=== PATIENT | female | born 1945 | race Caucasian/White ===

== ENCOUNTER 2024-08-19 04:28 | Inpatient (IN) | payer MEDICARE, OTHER, SELFPAY ==
[2024-08-19] VITALS (19 sets, daily range): BP systolic 77–126; BP diastolic 48–70; BMI 24.9; BMI 21.3
[2024-08-19 01:31] LABS: % Eosinophils 2.5 % (0-6); % Immature Granulocytes 0.4 % (0-0.5); % Lymphocytes 20.1 % (20.5-51.1); % Monocytes 5.3 % (1.7-9.3); % Neutrophils 70.7 % (42.2-75.2); Absolute Basophils 0.1 10^3/uL (0-0.2); Absolute Eosinophils 0.2 10^3/uL (0-0.7); Absolute Lymphocytes 1.8 10^3/uL (1.2-3.4); Absolute Monocytes 0.5 10^3/uL (0.1-0.6); Absolute Neutrophils 6.3 10^3/uL (1.4-6.5); Hematocrit 38.2 % (37.0-47.0); Hemoglobin 12.8 g/dL (12.0-16.0); Mean Corp Hgb Conc. 33.5 g/dL (33.0-37.0); Mean Corpuscular Volume 86.6 fL (81.0-99.0); Mean Platelet Volume 9.6 fL (7.4-10.4); Nucleated Red Blood Cells % 0 %; Platelet Count 201 10^3/uL (130-400); Red Blood Cell Count 4.41 10^6/uL (4.20-5.40); Red Cell Dist. Width 13.6 % (11.5-14.5); White Blood Cell Count 8.9 10^3/uL (4.8-10.8)
[2024-08-19 01:44] LABS: ALT (SGPT) 26 U/L (0-35); AST (SGOT) 45 U/L (14-36); Albumin 4.2 g/dl (3.5-5.0); Alkaline Phosphatase 69 U/L (38-126); Blood Urea Nitrogen 16 mg/dl (7-17); Calcium 9.4 mg/dl (8.4-10.2); Carbon Dioxide 26 mmol/L (22-30); Chloride 104 mmol/L (98-107); Estimated Creatinine Clearance 50 ml/min; Glucose 131 mg/dl (70-99); Potassium 4.1 mmol/L (3.5-5.1); Sodium 140 mmol/L (135-145); Total Bilirubin 0.8 mg/dl (0.2-1.3); eGFR > 60.00
[2024-08-19] MEDS: LOW STRENGTH ASPIRIN 324 MG PO (02:21)
[2024-08-19 02:50] LABS: APTT 36.6 Sec (23.4-35.0)
[2024-08-19 02:51] LABS: Lactic Acid 1.3 mmol/L (0.7-2.0)
[2024-08-19 02:54] LABS: COVID-19 Antigen Negative (Negative)
--- NOTE | 2024-08-19 03:21 | ED.GENMED ---
History of Present Illness
General
Chief Complaint: Chest Pain
Source: patient and family (Daughter at bedside)
Exam Limitations: none
Time Seen by Provider: 08/19/24 02:06
Nursing documentation reviewed up to this point in time: agreed with
History of Present Illness
History of Present Illness:
This is an 79-year-old woman who has history of GERD, anxiety who complains of at least 1 month history of intermittent shortness of breath primarily dyspnea on exertion. Dyspnea on exertion has slowly worsened over the past 3 weeks. Tonight
however she developed marked increase in shortness of breath accompanied with substernal chest pain, pressure that is much worse with lying supine. She has had a mild dry cough tonight but has not had a fever. No leg pain or swelling. No history
of similar episodes in the past. No recent travel.
She follows with a director post in [place] and has an appointment scheduled later this week.
Her only daily medications are omeprazole, lamotrigine and as needed lorazepam.
Past History
Past History
ED Past Medical History: GERD and Psychiatric (anxiety, MVP)
ED Past Surgical History: Orthopedic
Social History
Tobacco: Non-smoker
Alcohol: None
Drug: None
Personal:
Living: alone
Family History
Family History: CAD (mother with pmh CAD and CHF, 80y)
Phy Exam
Physical Exam
Physical Exam:
GENERAL: 79-year-old woman appears her stated age, awake and alert, appears in mild distress, mild to moderate resting tachypnea. Able to speak in full sentences. Mildly anxious.
EYE: pupils equal and reactive. anicteric
NECK: Supple, nontender, no meningismus, no significant adenopathy. Mild JVD.
ENT: oral mucosa is moist. No rhinorrhea.
CARDIAC: Regular rhythm, tachycardic. 3/6 holosystolic murmur left sternal border as well as S3 gallop noted.
LUNGS: Moderate bibasilar Rales with mild resting tachypnea.
ABDOMEN: Soft, nondistended, without focal tenderness, no r/g, no cvat. normoactive BS.
NEUROLOGICAL: Alert and oriented x3, no focal neuro deficits.
SKIN: Warm and dry, normal color, skin intact. No rash.
MUSCULOSKELETAL: No C/C/E. peripheral pulses are full and equal b/l. No palpable tenderness.
PSYCH: Normal and appropriate interaction.
Scores
Heart Score for Chest Pain Patients
STEMI patient?: No
History: Moderately Suspicious
ECG: Nonspecific Repolarization
Age: >/= 65 years
Risk Factors: No Risk Factors
Troponin: >/= 3 x Normal Limit
Heart Score for Chest Pain Patients: 6
Heart Score Risk: 20.3% MACE over next 6 weeks
Course
Orders/Labs/Results
Orders:
Orders
08/19/24 01:09
Electrocardiogram (*1) Urgent
Reason for Study: Chest Pain
EKG- Treatment ONCE
08/19/24 01:22
Complete Blood Count/With Diff Urgent
Comprehensive Metabolic Panel Urgent
NT-proBNP Urgent
Comment: ADD ON
Troponin I Urgent
08/19/24 02:18
Add On- LAB Urgent
Tests Added?: BNP
Aspirin Chewable [Low Strength Aspirin] 324 mg PO NOW STA
08/19/24 02:19
CT Chest Pe Study Urgent
Comment:
Reason For Exam: SOB, CP, tachycardia
08/19/24 02:26
COVID-19 Antigen Urgent
Source: Nasal Swab
Lactic Acid Urgent
08/19/24 02:29
PTT Urgent
08/19/24 03:22
Furosemide [Lasix] 40 mg IV NOW STA
08/19/24 03:31
Heparin 4,000 units IV NOW STA
Pharmacy Request to Place See Dose Instructions PO NOW STA
Discontinue all Active Warfarin orders?: Yes
Nursing to Place Non Medication Order As Directed
Physician Order: PTT 6 hours after initial start of Heparin infusion
08/19/24 03:43
Nitroglycerin Ointment [Nitro-Bid] 0.5 inch TOPICAL NOW STA
Nitroglycerin Ointment [Nitro-Bid] 1 inch .ROUTE .STK-MED ONE
08/19/24 03:45
Heparin [id number] Units/250 ml 25,000 units in 250 ml IV PER PROTOCOL
Weight to be used for heparin protocol in kilograms (kg):: 68
Protocol:: Cardiac Tx/Acute Coronary
PTT Goal Range to be used:: PTT 73 to 111 seconds
Order type:: Initial
INITIAL Infusion Dose (UNITS/KG/hr) & then follow protocol:: 12 units/kg/hr
Infusion Dose in UNITS/hr & then follow protocol (UNITS/hr):: 800
INFUSION RATE in mL/hr & then follow protocol (mL/hr):: 8
PTT less than or equal to 64 seconds:: Increase rate by 200 units/hr (+ 2 mL/hr)
PTT 64.1 to 72.9 seconds:: Increase rate by 100 units/hr (+ 1 mL/hr)
PTT 73 to 111 seconds:: Target Range. No change in rate.
PTT 111.1 to 130.9 seconds:: Decrease rate by 100 units/hr (- 1 mL/hr)
PTT 131 to 199.9 seconds:: HOLD for 1 hr. Then decrease rate by 200 units/hr (- 2 mL/hr)
PTT greater than or equal to 200 seconds:: HOLD for 2 hrs & Notify Provider. Then decrease by 200 units/hr (-
2 mL/hr)
Lab follow-up:: Each change, PTT q6h until 2 consecutive are therapeutic. Then PTT
daily.
08/19/24 04:[address] See Dose Instructions IV DIRECTED
Abnormal Lab Results
08/19/24 08/19/24
: 02:29
Lymphocytes % 20.1 L %
(20.5-51.1)
APTT 36.6 H Sec
(23.4-35.0)
Glucose 131 H mg/dl
(70-99)
AST 45 H U/L
(14-36)
Troponin I 3.310 H* ng/ml
08/19/24 01:22
08/19/24 01:22
Vital Signs
Initial and Last Documented VS:
Initial Vital Signs
Temp Pulse Resp BP Pulse Ox
99.2 F 105 22 126/70 98
08/19/24 01:17 08/19/24 01:17 08/19/24 01:17 08/19/24 01:17 08/19/24 01:17
Last Documented Vital Signs
Temp Pulse Resp BP Pulse Ox
99.2 F 105 11 106/55 96
08/19/24 01:17 08/19/24 03:02 08/19/24 03:02 08/19/24 03:02 08/19/24 03:02
MDM/Problems Addressed
Differential Diagnosis Includes:
Concern for ACS, acute CHF, pneumonia, PE, pleural effusion.
EKG shows sinus tachycardia which is new compared to previous 2014, poor R wave progression more pronounced on today's EKG compared to previous.
Labs remarkable for elevated troponin 3.3 consistent with non-STEMI. Patient has no prior history of CAD, no reported risk factors for CAD, but does follow with a director post in [place].
Will check D-dimer and due to concern for potential PE will check CT of the chest/PE study.
Will give 324 mg chewable aspirin.
BP is soft at 110 systolic. Will hold off on nitro for now.
*Radiology
Radiology exam reviewed: radiology read reviewed
*Pulse Oximetry
Patient hypoxic: no
*EKG
Interpreted by ED Provider?: Yes
Interpretation: abnormal
Comparison EKG: changes noted (Sinus tachycardia and poor R wave progression anteriorly or new compared to previous EKG 2015.)
Rate: tachycardiac
Rhythm: sinus
[place]: normal axis
Interval: normal interval
QRS Pattern: poor R-wave progression
Ischemia: non-specific ST changes
*Transplanter Interpretation
Rate: tachycardiac
Interpretation: abnormal
Rhythm: sinus
*Critical Care Note
Total Time (30-74mins, 75-104mins- exclusive of procedures): 30
comment:
Critical care statement: A total of 30 minutes of critical care time was provided for this patient. This includes management of unstable vital signs, evaluation of the patient at bedside, reviewing the patient's pertinent medical records, discussion
with consultants, review of old EKGs and review of pertinent medical records. This time with separate from time utilized to perform the aforementioned documented procedures
Update Note
Update Note:
08/19/2024 0350 AM
Patient is much more comfortable, resting comfortably with no further chest pain. She does continue with mild shortness of breath but improving.
CT shows no PE but evidence of pulmonary edema, bilateral pleural effusions.
BNP markedly elevated 12,500.
Will initiate IV Lasix, IV heparin and as BP remains somewhat soft will add Nitropaste 1/2 inch.
Will continue to trend troponin and admit to hospitalist service. Will plan for cardiology consult.
ED Attending Note
-
Portions of this chart may have been created with voice recognition software.� Occasional wrong word or��sound alike� substitutions may have occurred due to the inherent limitations of voice recognition software.
Discharge Plan
Departure
Patient Disposition: Admit
Date of Disposition: 08/19/24
Time of Disposition: 03:52
Admit to: IVU
Admit to doctor: Chris
Presentation/result/management discussed w/ accepting MD/DO: Hospitalist
Condition: Serious
Discharge Problem:
Acute left-sided CHF (congestive heart failure), Acute non-ST elevation myocardial infarction (NSTEMI)
Prescriptions:
No Action
lamotrigine 100 MG tablet
200 mg PO BID
lorazepam 1 MG tablet
1 mg PO TIDPRN PRN (Reason: anxiety)
omeprazole
Referrals:
Tyrell King MD [Family Provider] -
Interventions
Interventions:
*Risk Screen - Suicide Last Done: 08/19/24 01:17
*General Assessment Last Done: 08/19/24 01:17
*Neglect/Abuse Screening Last Done: 08/19/24 01:17
ED- Fall Risk Assessment Last Done: 08/19/24 01:27
*ED COVID-19 Vaccine History Last Done: 08/19/24 01:24
ED- Cardiac Assessment Last Done: 08/19/24 01:27
Discharge Date and Time
Print Language: MALTESE
[2024-08-19 03:40] LABS: NT-proBNP 12500 pg/ml
[2024-08-19] MEDS: LASIX 40 MG IV (03:50)
[2024-08-19] MEDS: NITRO-BID 0.5 INCH TOPICAL (03:50)
--- NOTE | 2024-08-19 03:51 | EDRN ---
Re-weighed pt and confirmed weight of 68kg. Called pharmacy for heparin verification
[2024-08-19] MEDS: HEPARIN 4000 UNITS IV (04:11)
[2024-08-19] MEDS: HEPARIN 25000 UNITS/250 ML IV (04:12)
--- NOTE | 2024-08-19 04:20 | HPS.HSE ---
Family Physician
-
Family Physician: Tyrell King
Chief Complaint
-
SOB, Shoulder Pain
History of Present Illness
Patient is an 79y F with PMH significant for anxiety / depression who presents to ED complaining of SOB and shoulder discomfort. Patient states that she first noted some shortness of breath with exertion / activity about 3 weeks ago. Her
dyspnea has gradually increased in frequency and severity since that time. She has developed hacking, non-productive cough. She has difficulty sleeping due to dyspnea / orthopnea. She has felt generally fatigued. Patient states that she has had
a few episodes of L shoulder discomfort. She initially attributed this to muscular pain. This evening she had recurrent L shoulder discomfort and presented to the ED for further evaluation.
Patient notes that pain is in the anterior and posterior L shoulder. It radiates across the L chest somewhat. Pain is dull / tight in nature.
Patient denies any fevers / chills, known sick contacts, etc.
She has no history of [place], CVA, etc. She is followed by a Incident Response Engineer in [place] (Dr. Fam) - whom she only started seeing due to her family history / for prevention.
Recent relevant history is significant for the fact that her at the end of May. Patient moved from [place] to this area to live with her daughter following her 's passing.
In the ED, patient is currently resting comfortably. She denies any dyspnea and has no shoulder or chest pain at this time.
Medical History
Past Medical History
Past Medical History: Reports Other
Additional Past Medical History:
Anxiety / Depression
GERD
Past Surgical History: Reports Other
Additional Past Surgical History:
Right Rotator Cuff Surgery
Hernia Repair
Social History
Tobacco: Non-smoker ( smoked in the home x many years.)
Alcohol: None
Drug: None
Living: With Family
Family History
Family History: Other (Mother: CHF / Cardiomyopathy)
Allergies / Home Medications
Allergies reflects when Allergies were last updated in [facility].
Home Medications with original date entered in [facility]
Allergy/Medication List:
Allergies
Allergy/AdvReac Type Severity Reaction Status Date / Time
No Known Allergies Allergy Verified 08/19/24 03:05
Home Medications
lamotrigine 100 mg tablet 200 mg PO BID 11/07/12
lorazepam 1 mg tablet 1 mg PO TIDPRN PRN anxiety 05/27/15
omeprazole 08/19/24
Review of Systems
-
History Source: Patient
A 12 point ROS was completed and negative except as noted: Yes
Constitutional: Reports Fatigue; Denies Fever or Chills
EENT: Denies Sore Throat
Respiratory: Reports Cough and Trouble Breathing; Denies Hemoptysis
Cardiac: Reports Chest Pain; Denies Diaphoresis, Palpitations or Syncope
Abdomen/GI: Denies Abdominal Pain, Nausea, Vomiting or Diarrhea
: Denies Dysuria, Frequency or Flank Pain
Musculoskeletal: Denies Joint Pain or Edema
Neurological: Denies Dizzy or Headache
Psych: Denies Depression or Anxiety
Physical Exam
Vital Signs
Vital Signs
Temp Pulse Resp BP Pulse Ox
99.2 F 103 11 104/63 96
08/19/24 01:17 08/19/24 03:46 08/19/24 03:02 08/19/24 03:46 08/19/24 03:02
Physical Exam
General: Other (79y F in no acute distress.)
HEENT: Moist mucous membranes, PERRLA and Other (No JVD.)
Respiratory: Other (Rales throughout bilateral lungs - nearly 100% up. Hacking paroxysms of cough during exam. No wheezing.)
Cardiac: S1/S2, Regular Rhythm and Murmur (III/ DAMIÁN)
GI: Soft, Non Tender, Non Distended and Normal Bowel Sounds
Musculoskeletal: No Clubbing, No Cyanosis and No Edema
Neuro: AO x 3
Laboratory Results
-
08/19/24 01:22
08/19/24 01:22
Laboratory Results
APTT 36.6 Sec (23.4-35.0) H 08/19/24 02:29
Lactic Acid 1.3 mmol/L (0.7-2.0) 08/19/24 02:26
Total Bilirubin 0.8 mg/dl (0.2-1.3) 08/19/24 01:22
AST 45 U/L (14-36) H 08/19/24 01:22
ALT 26 U/L (0-35) 08/19/24 01:22
Alkaline Phosphatase 69 U/L (38-126) 08/19/24 01:22
Troponin I 3.310 ng/ml H* 08/19/24 01:22
Impression/Plan
-
A/P: Patient is an 79y F with PMH significant for anxiety / depression who presents tp ED complaining of 3 weeks of progressive dyspnea and intermittent L shoulder pain.
NSTEMI
- Admit for further evaluation and treatment.
- Initial troponin is 3.31 with L shoulder and chest discomfort.
- Pain is currently 0/10.
- EKG without evident acute ischemic changes.
- IV heparin infusion.
- NTG as needed for recurrent chest pain.
- ASA, statin, etc.
- Cardiology consult for probable ischemic evaluation.
- Follow for any new / recurrent symptoms.
- Takotsubo's certainly a possibility given recent stressors (see HPI).
Acute HF - Unknown Type
- Patient with pulmonary edema on exam and CT scan.
- BNP markedly elevated. No R sided findings of edema, abdominal distention, JVD, etc.
- Treat NSTEMI as noted above.
- Check Echo.
- Trial of IV Lasix at low dose and follow for effective diuresis.
- Cardiology evaluation as noted above.
Anxiety / Depression
- Stable. Continue Lamictal and PRN lorazepam.
GERD
- Stable. Continue daily PPI.
- Hiatal hernia appreciated on CT scan.
DVT Prophylaxis: On IV Heparin
Code Status: Full
--- NOTE | 2024-08-19 07:00 | PTCARENOTE ---
received patient from the ED. AAOx3. ambulated to the bed from stretcher-steady. denies any sob/cp. mild dyspnea on exertion noted. 97% on RA. SR on tele. bp stable. fine crackles b/l bases. patient states 'chest heaviness' with deep breathes.
educated patient to inform RN with any changes. Nitro patch RUE. heparin gtt infusing per protocol.
[2024-08-19] MEDS: PROTONIX 40 MG PO (07:49)
[2024-08-19] MEDS: LASIX 20 MG IV ×2 (07:49→15:54)
[2024-08-19] MEDS: LOW STRENGTH ASPIRIN 81 MG PO (07:49)
[2024-08-19] MEDS: LAMICTAL 200 MG PO ×2 (07:49→20:03)
[2024-08-19 11:22] LABS: APTT 58.2 Sec (23.4-35.0)
--- NOTE | 2024-08-19 12:05 | W.PN.HOSP.TC ---
Today's Communication/Plan
-
IV heparin
Diuresis
Echo/cath tomorrow
Assessment / Plan
Assessment / Plan
79-year-old female presented to the ER with shortness of breath and shoulder discomfort. Patient states that she has had shortness of breath for the past 1 month mostly with exertion and climbing stairs. She felt chest pain and also left shoulder
pain last night which prompted him to come to the ER. Patient lives with her daughter now. She has been following up with her doctor Remy Irwin in [place] for mitral valve prolapse. Other than that and anxiety and bipolar disease she is
relatively healthy. Patient also lost her in May.
Patient was seen earlier. Late documentation
Patient's daughter was at bedside
Cardiovascular system S1-S2 appreciated systolic murmur at apex
Chest bilateral rales
Abdomen soft and nontender
No pedal edema
Neuroexam nonfocal
CT PE study-small to moderate bilateral pleural effusions. CT findings compatible with pulmonary edema no pericardial effusion. Moderate calcification of aortic valve. Mucous plugging/bronchial secretions. Splenic artery aneurysm 1.5 cm small to
moderate-sized hiatal hernia
# Non-STEMI
Initial troponin 3.31 with chest discomfort and short repeat
Troponin trending down
Continue as needed nitroglycerin, IV heparin, aspirin and statin
Cardiology evaluation
Check echo
Cath tomorrow
CT PE study-results
# Acute heart failure-type unknown
proBNP [id number]
Problem Takotsubo cardiomyopathy
Check echo
Ischemic reasons need to be ruled out also
Continue IV Lasix for diuresis
Cardiology evaluation as above
# Heart murmur-systolic murmur at apex-aortic stenosis versus MR-check echo tomorrow
# Anxiety and depression-continue Lamictal, as needed Ativan
# GERD/hiatal hernia-continue PPI
# Splenic artery aneurysm 1.5 cm-repeat CAT scan in 6 months
# Diverticulosis
# DVT prophylaxis-heparin
# Full code
D/W daughter at bedside
Discussed with cardiology
Discussed with nursing at bedside
time spent over 50 min
Part of this note was created using voice recognition system. Occasional wrong word or��sound alike� substitutions may have inadvertently occurred due to the inherent limitations of voice recognition software. If noted kindly bring it to my
attention for correction.
Anticipated Discharge: 24 - 48 hours
Subjective/Interval History
-
Date of Service: August 19, 2024
Objective Data
-
Labs:
Laboratory Results
08/19/24 08/19/24 08/19/24
01:22 02:29 10:42
WBC 8.9
Hgb 12.8
Hct 38.2
Plt Count 201
APTT 36.6 H 58.2 H
Sodium 140
Potassium 4.1
Chloride 104
Carbon Dioxide 26
BUN 16
Creatinine 0.8
Glucose 131 H
Calcium 9.4
Total Bilirubin 0.8
AST 45 H
ALT 26
Alkaline Phosphatase 69
Vital Signs:
Vital Signs
Temp Pulse Resp BP Pulse Ox
98.1 F 94 18 102/57 99
08/19/24 06:35 08/19/24 10:22 08/19/24 06:35 08/19/24 10:22 08/19/24 08:00
I&O
08/18/24 08/19/24 08/20/24
06:59 06:59 06:59
Output Total 625 / 625 800 / 800
Balance -625 / -625 -800 / -800
--- NOTE | 2024-08-19 12:44 | CON.CAR ---
Consultation
Consultation Request
Date/Time Consultation Requested: 08/19/24, 7am
Date/Time Consultation Performed: 08/19/24, 11am
Requesting Provider: Luis Miguel
Performing Provider: Ray
Reason for Consultation: chest pain, SOB
Medical History
-
Chief Complaint: SOB, chest pressure
History of Present Illness:
79 yo female with 'valve abnormality.' anxiety/depression, GERD presents to ED with SOB and chest pressure. She has noted progressive SOB/MOHAN over last 3-4 weeks. Then started having left shoulder and chest pain, which worsened last night. So she
presented to ED. She is comfortable at rest in bed. No dizziness, syncope, palps, edema.
Past Medical History
Past Medical History: GERD, Valvular Disease and Psychiatric
Past Surgical History: Other (hernia repair)
Social History
Tobacco: Non-Smoker
Family History
Family History: Other (HF in mother)
Allergies / Home Medications
Allergy/AdvReac Type Severity Reaction Status Date / Time
No Known Allergies Allergy Verified 08/19/24 03:05
�Medication �Instructions �Recorded �Confirmed �Type
lamotrigine 100 mg tablet 200 mg PO BID 11/07/12 08/19/24 History
lorazepam 1 mg tablet 1 mg PO TIDPRN PRN anxiety 05/27/15 08/19/24 History
omeprazole 08/19/24 History
Review of Systems
-
History Source: Patient and Family
Respiratory: Cough and Trouble Breathing
Cardiac: Chest Pain
Physical Exam
Vital Signs
Temp Pulse Resp BP Pulse Ox
98.5 F 94 20 102/57 98
08/19/24 12:03 08/19/24 10:22 08/19/24 12:03 08/19/24 10:22 08/19/24 12:03
Lab Results
08/19/24 01:22
08/19/24 01:22
Troponin I 5.460 ng/ml H* D 08/19/24 10:42
Lsh-B-Ihjorsmagac Pept 16874 pg/ml 08/19/24 01:22
Physical Exam
General: Comfortable
HEENT: Normocephalic and Anicteric
Respiratory: Clear and Non Labored Respirations
Cardiac: S1/S2 (normal), Regular Rhythm, Murmur (III/ systolic at apex) and Peripheral Edema (none)
Musculoskeletal: No Clubbing, No Cyanosis and No Edema
Skin: Warm and Dry
Neuro: AO x 3
Psych: Calm
Impression / Plan
-
79 yo female with 'valve abnormality.' anxiety/depression, GERD presents to ED with SOB and chest pressure. She has noted progressive SOB/MOHAN over last 3-4 weeks. Then started having left shoulder and chest pain, which worsened last night. So she
presented to ED.
# Heart murmur
-sounds like MR, and she is followed by a feather separator in [place] for a 'valve abnormality'
-there may be a component of worsening valve disease and acute HF (unknown type)
-echo
-lasix 20mg IV bid (not on diuretic at home), with monitoring of labs and tele
# Elevated troponin
-5.46 and rising; chest pain free now; EKG with ST, septal infarct
-with shoulder and chest pain, concern for NSTEMI
-ASA, heparin drip, statin, beta kin as BP allows
-will plan for echo first, to determine severity of valve disease, and then cath for coronary assessment
Data Reviewed
-
EKG: Tracing Personally Visualized and interpreted (ST, septal infarct)
CT Scan: Report Reviewed by me (CT PE: no PE)
Labs: Labs Reviewed by me
[2024-08-19] MEDS: LIPITOR 40 MG PO (17:22)
--- NOTE | 2024-08-19 18:00 | PTCARENOTE ---
Pt received this am with no c/o of any chest pain. Pt states she occasionally had mild chest pressure if she takes a deep breath. IV heparin infusing as ordered. Pt oob to the chair for breakfast and tolerated well. Pt assisted to the bathroom, gait
steady.
[2024-08-19 18:02] LABS: APTT 85.1 Sec (23.4-35.0)
--- NOTE | 2024-08-19 21:24 | PTCARENOTE ---
received patient at the change of shift. resting comfortably in bed. denies any cp/sob. patient states feeling much better. SR on tele with [id number]. bigeminy noted. bp stable. heparin gtt infusing at 10 ml/hr per protocol. reviewed plan of care
with patient and verbalized understanding. NPO at midnight. call maurice within reach.
[2024-08-19] MEDS: TOPROL XL 25 MG PO (22:56)
--- NOTE | 2024-08-19 23:10 | PTCARENOTE ---
Addendum entered by Sridhar Hyde RN 08/19/24 23:57:
blood pressure did not tolerate SL nitro. 80s/50-60s. updated Dr. Bell. will hold off on any other SL nitro. patient denies any lightheadedness/dizziness. pillow under legs. bp improved-95/61. patient states improved pain after SL nitro. denies any
cp at this time. states only mild heaviness with 'deep' breathing.
Original Note:
patient updated tech that she is having some pain. on assessment, patient states L sided chest pain-non radiating, started about 30 minutes ago. she wanted to see if it would go away and walked to the bathroom. the pain did not go away. patient
states worsening pain with inhaling. 97% on RA. denies any sob. SR 80s. bp 98/58. EKG completed. updated Dr. Bell via TT. okay to give SL nitro-monitor BP.
[2024-08-19] MEDS: NITROSTAT (SUBLINGUAL) 0.4 MG SL (23:12)
[2024-08-20] VITALS (18 sets, daily range): BP systolic 81–105; BP diastolic 51–64; BMI 21.2
[2024-08-20 00:13] LABS: APTT 88.1 Sec (23.4-35.0)
[2024-08-20] MEDS: TYLENOL 650 MG PO ×4 (05:53→20:35)
--- NOTE | 2024-08-20 05:55 | PTCARENOTE ---
patient complaining of a 'sore, stiff' back, from laying in bed so much. Tylenol given per patients request, see mar. otherwise patient states sleeping well overnight. no episodes of chest pain. mild pain with deep breaths per patient.
[2024-08-20] MEDS: HEPARIN 25000 UNITS/250 ML IV (06:05)
[2024-08-20 06:14] LABS: Hematocrit 37.8 % (37.0-47.0); Hemoglobin 12.7 g/dL (12.0-16.0); Mean Corp Hgb Conc. 33.6 g/dL (33.0-37.0); Mean Corpuscular Hgb 29.9 pg (27.0-31.0); Mean Corpuscular Volume 88.9 fL (81.0-99.0); Mean Platelet Volume 10.2 fL (7.4-10.4); Platelet Count 173 10^3/uL (130-400); Red Blood Cell Count 4.25 10^6/uL (4.20-5.40); Red Cell Dist. Width 13.6 % (11.5-14.5)
[2024-08-20 06:29] LABS: APTT 76.6 Sec (23.4-35.0)
[2024-08-20 06:59] LABS: Blood Urea Nitrogen 15 mg/dl (7-17); Calcium 8.8 mg/dl (8.4-10.2); Carbon Dioxide 25 mmol/L (22-30); Chloride 97 mmol/L (98-107); Estimated Creatinine Clearance 52 ml/min; Glucose 115 mg/dl (70-99); HDL Cholesterol 61 mg/dl; LDL Cholesterol, Calculated 72 mg/dl; Potassium 3.9 mmol/L (3.5-5.1); Sodium 137 mmol/L (135-145); Total Cholesterol 143 mg/dl (50-199); Triglyceride 50 mg/dl (10-149); Very Low Density Lipoprotein 10 mg/dl (0-30); eGFR > 60.00
--- NOTE | 2024-08-20 08:29 | W.PN.HOSP.TC ---
Addendum entered and electronically signed by Hao Bolanos MD 08/20/24 11:22:
79-year-old female presented to the ER with shortness of breath and shoulder discomfort. Patient states that she has had shortness of breath for the past 1 month mostly with exertion and climbing stairs. She felt chest pain and also left shoulder
pain last night which prompted him to come to the ER. Patient lives with her daughter now. She has been following up with her doctor Remy Irwin in [place] for mitral valve prolapse. Other than that and anxiety and bipolar disease she is
relatively healthy. Patient also lost her in May.
I personally performed a history and physical exam of the patient and discussed management with the resident. I reviewed the resident's note and agree with the documented findings and plan of care HPI/CC except changes in my documentation.
Cardiovascular system S1-S2 appreciated systolic murmur at apex
Chest bilateral rales
Abdomen soft and nontender
No pedal edema
CT PE study-small to moderate bilateral pleural effusions. CT findings compatible with pulmonary edema no pericardial effusion. Moderate calcification of aortic valve. Mucous plugging/bronchial secretions. Splenic artery aneurysm 1.5 cm small to
moderate-sized hiatal hernia
Had some shoulder pain overnight
# Non-STEMI
Initial troponin 3.31 with chest discomfort and short repeat
Troponin trending down
Continue as needed nitroglycerin, IV heparin, aspirin and statin
Echo dilated LV, normal systolic function. EF 50 to 55%. LAD territory wall motion abnormality. Stage III diastolic dysfunction suggestive of restrictive filling pattern and increased filling pressures. Severe MR, severe AI, pulmonary artery
pressure 40 to 45 mmHg
Cardiac cath planned for today-May need LAD intervention based on echo
# Acute heart failure-acute HFpEF
proBNP 93681
Echo as above
Ischemic reasons likely along with valvular abnormality
Hold Lasix as blood pressure is soft
# Severe mitral regurgitation-ischemic versus-chronic
# Anxiety and Bipolar disease-continue Lamictal, as needed Ativan
# GERD/hiatal hernia-continue PPI
# Splenic artery aneurysm 1.5 cm-repeat CAT scan in 6 months
# Diverticulosis
# DVT prophylaxis-heparin
# Full code
D/W daughter at bedside
Discussed with cardiology
Discussed with nursing at bedside
Part of this note was created using voice recognition system. Occasional wrong word or��sound alike� substitutions may have inadvertently occurred due to the inherent limitations of voice recognition software. If noted kindly bring it to my
attention for correction.
Original Note:
Today's Communication/Plan
-
Hold Lasix
Echo today to determine valve disease etiology and severity
Catheterization for coronary assessment today
IV heparin
Assessment / Plan
Assessment / Plan
Assessment
Acute HF unk EF
ACS non-STEMI
Elevated troponin
Heart murmur - Presence Systolic murmur at apex ( vs MR)
Conditions present prior to admission
Anxiety
Depression
GERD
Hiatal Hernia
Splenic artery aneurysm
Diverticulosis
Plan
-Acute HF unk EF
pro BNP on presentation 66204
Echocardiogram today, Pending.
Diuresis with IV lasix. Holding due to BP and CATH today.
Cards on board.
-Non-STEMI
Trops trending down.
Continue as needed nitroglycerin, IV heparin, aspirin and statin and metoprolol
Echo
quality lab technician today.
-Heart murmur - Presence Systolic murmur at apex ( vs MR)
Echo pending
-Anxiety/depression
continue Lamictal, as needed Ativan
-GERD/hiatal hernia
continue PPI
-Splenic artery aneurysm 1.5 cm-repeat CAT scan in 6 months
# Diverticulosis
CODE STATUS-full code
DVT prophylaxis-heparin
Anticipated Discharge: > 48 hours
Subjective/Interval History
-
Saw patient at bedside. Discussed with patient and daughter. Patient reports improvement in shortness of breath. At the time of examination today, denies ongoing chest pain. Although patient states she experiencing mild left shoulder pain early
this morning that improved with Tylenol use.
Objective Data
-
Labs:
Laboratory Results
08/19/24 08/20/24
23:53 05:59
WBC 10.0
Hgb 12.7
Hct 37.8
Plt Count 173
APTT 88.1 H 76.6 H
Sodium 137
Potassium 3.9
Chloride 97 L
Carbon Dioxide 25
BUN 15
Creatinine 0.8
Glucose 115 H
Calcium 8.8
Vital Signs:
Vital Signs
Temp Pulse Resp BP Pulse Ox
98.3 F 99 18 105/63 98
08/20/24 05:55 08/20/24 06:00 08/20/24 05:55 08/20/24 05:53 08/20/24 05:55
I&O
08/19/24 08/20/24 08/21/24
06:59 06:59 06:59
Intake Total 250 / 250
Output Total 625 / 625 800 / 800
Balance -625 / -625 -550 / -550
Review of Systems
-
All other systems: Reviewed and negative (Except as documented)
Physical Exam
-
General: No Apparent Distress and Comfortable
HEENT: Normocephalic
Respiratory: Rales (Bilateral) and Crackles (Mild B/L)
Cardiac: Regular Rhythm, S1/S2 and Murmur (3/6 systolic murmur at apex)
GI: Soft, Nontender, Nondistended and Normal Bowel Sounds
Musculoskeletal: No Edema and Other (Left shoulder discomfort)
Skin: Warm and Dry
Neuro: Awake, Alert, Oriented and AO x 3
Psych: Calm
[2024-08-20] MEDS: LAMICTAL 200 MG PO ×2 (08:39→20:35)
[2024-08-20] MEDS: PROTONIX 40 MG PO (08:39)
[2024-08-20] MEDS: LASIX 20 MG IV (08:39)
[2024-08-20] MEDS: LOW STRENGTH ASPIRIN 81 MG PO (08:40)
--- NOTE | 2024-08-20 09:52 | PTCARENOTE ---
Patient walked to the bathroom, a little unsteady on her feet, denies lightheadedness, BP 104/59. Complaints of not being able to take a full breath, new cough, POX 94% on room air placed on 2 liters, crackles b/l @ bases. Left shoulder discomfort,
Tylenol given. Daughters at bedside
--- NOTE | 2024-08-20 10:01 | W.PN.CD ---
Today's Communication / Plan
-
consult CT surgery
Impression / Plan
-
79 yo female with valve abnormality (records unavailable), anxiety/depression, and GERD presents to ED with SOB and chest pressure, found to have MR murmer and NSTEMI with peak troponin ~5.
# NSTEMI
-presented with shoulder and chest pain
-troponin peak at 5.46; chest pain free now; EKG with ST, septal infarct
-[facility] 08/20/24 with severe LAD stenosis
-cont. ASA, heparin drip, statin, beta kin as BP allows
# Severe MR, AR
# Acute on chronic heart failure, mixed ischemic and non-ischemic
-TTE demonstrates severe MR due to likely torn chordae and severe AR, EF preserved w/ LAD RWMAs
-cont. lasix 20mg IV bid (not on diuretic at home) daily, with monitoring of labs and tele
-consult surgery for MVR/AVR/CABG
-avoid P2Y12, avoid RASS agents, avoid SGLT2i/GLP pending surgical evaluation
TTE 08/20/24
Mildly dilated LV with low normal systolic function.
LVEF 50-55% by visual estimation.
LAD territory wall motion abnormality.
Stage III diastolic dysfunction suggestive of restrictive filling pattern and
increased filling pressures.
Normal right ventricular size and function.
Severe mitral regurgitation with anteriorly directed jet likely from torn
chordae resulting in prolapse/flail of the posterior leaflet of the mitral
valve.
Severe aortic regurgitation.
Estimated pulmonary artery pressure of 40-45 mmHg. Assuming a right atrial
pressure of 8 mmHg.
No prior study for comparison.
Physical Exam
Vital Signs/Labs
Vital Signs
Temp Pulse Resp BP Pulse Ox
36.8 C 92 16 104/59 97
08/20/24 08:15 08/20/24 09:39 08/20/24 08:15 08/20/24 09:39 08/20/24 09:39
08/19/24 08/20/24 08/21/24
06:59 06:59 06:59
Actual Weight 59.8 kg
08/20/24 05:59
08/20/24 05:59
APTT 76.6 Sec (23.4-35.0) H 08/20/24 05:59
Magnesium 2.0 mg/dl (1.6-2.3) 08/20/24 05:59
Triglycerides 50 mg/dl (10-149) 08/20/24 05:59
LDL Cholesterol, Calc 72 mg/dl 08/20/24 05:59
VLDL Cholesterol, Calc 10 mg/dl (0-30) 08/20/24 05:59
HDL Cholesterol 61 mg/dl 08/20/24 05:59
08/19/24
01:22
Uxc-R-Txhdrwwpiik Pept 19944
LAB Results
08/19/24 08/19/24 08/19/24
01:22 04:03 10:42
Troponin I 3.310 H* 2.920 H* 5.460 H* D
08/19/24 08/19/24 08/19/24
12:15 17:41 18:15
Troponin I Cancelled 5.640 H* Cancelled
08/19/24
23:52
Troponin I 4.850 H*
Physical Exam
Constitutional: No acute distress and Comfortable
Cardiovascular: Rhythm & rate is regular, Pedal edema is absent and Systolic murmur present
Respiratory: Respiratory effort normal and Crackles Present
Neuro/Psych: Alert, Oriented and AO x 3
Data Reviewed
-
Date of Service: August 20, 2024
Medical Decision Making: Reviewed Test Results
EKG: Tracing Personally Visualized and interpreted
Echo: Tracing Personally Visualized and interpreted
X-Ray/CT/US/MRI/NUC/PET: Image Personally Visualized and interpreted
Medical Tests (PFT, Pathology etc): Image Personally Visualized and interpreted
Labs: Labs Reviewed by me and Labs Ordered by me
--- NOTE | 2024-08-20 11:26 | PTCARENOTE ---
Patient walked to the bathroom, voided, slightly nausea, mildly anxious. Left shoulder pain 4 out 10 after Tylenol. Report called to the slab worker, she was taken to that slab worker in her bed.
--- NOTE | 2024-08-20 12:01 | CM ---
spoke to pt in room, she is prev indep, lives with her daughter in a 2 story home with 2 steps to enter. she denies any dme's or dc planning needs. plan mis for dc to home when medically stable.
--- NOTE | 2024-08-20 12:20 | PTCARENOTE ---
Patient received from the laborer tree tapping. Right radial band intact. SR on telemetry, VSS, on room air denies shortness of breath
--- NOTE | 2024-08-20 13:30 | CONSULT.CT ---
Consultation
-
Date/Time Consultation Requested: 08/20/24 @1300
Date/Time Consultation Performed: 08/20/24 @1330
Requesting Provider: Dr. Lombardo
Performing Provider: Benedict COLEMAN for Dr. Gipson
Reason for Consultation: Eval for CABG/MVR/AVR
Patient History
Physicians
Family Physician: Tyrell King
Outpatient Security Assistant: Dr. Fam in [place]
Inpatient Security Assistant: Mun[place]
History of Present Illness
79-year-old female with past medical history significant for GERD, MV prolapse, and anxiety/depression presented to [facility]'s emergency room for progressive shortness of breath starting about 3 weeks ago. At that time she endorsed
dyspnea/orthopnea along with a nonproductive cough. On the evening of 08/18, patient started to complain about recurrent left shoulder discomfort that radiated to the left chest.
Patient ruled in for an NSTEMI and troponins peaked at 5.46. Left heart cath performed on 08/20 showed severe LAD stenosis and echocardiogram demonstrated severe MR due to torn chordae and severe AR, EF was preserved with LAD regional wall motion
abnormalities. Since admission patient has been getting diuresed with Lasix 20 mg IV twice daily and CT surgery was consulted for surgical evaluation.
Past Medical History
Past Medical History: GERD, [place], Psychiatric (anxiety/Depression) and Valvular Disease
Allergies
Allergy/AdvReac Type Severity Reaction Status Date / Time
No Known Allergies Allergy Verified 08/19/24 03:05
Home Medications
�Medication �Instructions �Recorded �Confirmed �Type
lamotrigine 100 mg tablet 200 mg PO BID Mental Health/Anxiety 11/07/12 08/19/24 History
lorazepam 1 mg tablet 1 mg PO TIDPRN PRN anxiety 05/27/15 08/19/24 History
omeprazole 08/19/24 History
Review of Systems
-
History Source: Patient and Family
General: Reports Fatigue and Sleep Disturbance
HEENT: Reports No Symptoms
Respiratory: Reports SOB, MOHAN, Cough and PND
Cardiac: Reports Chest Pain, CAD and Edema
Abdomen/GI: Reports Reflux and Indigestion
: Reports No Symptoms
Musculoskeletal: Reports No Symptoms
Skin: Reports No Symptoms
Neurological: Reports Dizzy
Vascular: Reports No Symptoms
Physical Exam
Vital Signs
Temp 97.6 F 08/20/24 12:29
Temp route: Oral 08/20/24 12:29
Pulse 89 08/20/24 13:09
Rhythm: Normal sinus rhythm 08/20/24 08:00
With- PVC's Monomorphic, PVC's Bigeminy 08/19/24 19:30
Resp Rate 16 08/20/24 12:29
Blood pressure 102/59 08/20/24 13:09
Blood pressure extremity used: Left upper arm 08/20/24 12:29
Position: Lying 08/20/24 12:29
MAP (cuff-Mauricio Monitor) 71 08/20/24 13:09
SaO2 95 08/20/24 13:09
Nasal Cannula flow liters per minute 2 08/20/24 08:00
Oxygen Mode of Delivery Room air 08/20/24 12:29
Can the patient verbally communicate their pain? Yes 08/20/24 10:43
Pain scale ratin 08/20/24 10:43
Actual Weight 59.8 kg 08/19/24 06:35
Body Mass Index (BMI) 21.3 08/19/24 06:35
Labs
08/20/24 05:59
08/20/24 05:59
APTT 76.6 Sec (23.4-35.0) H 08/20/24 05:59
Hemoglobin A1c 5.0 % (4.0-5.6) 08/19/24 10:42
Troponin I 4.850 ng/ml H* 08/19/24 23:52
Qas-S-Jputmhzhizf Pept 40409 pg/ml 08/19/24 01:22
Exam
General: Well Developed and Well Nourished
HEENT: Normocephalic
Neck: JVD
Respiratory: Clear and Crackles
Cardiac: S1/S2 and Murmur
GI: Soft and Non Tender
Rectal: Deferred by Provider
Skin: Warm and Dry
Neuro: AO x 3
Extremities: Pulses (+1)
Lymph: No Lymphadenopathy
Psych: Calm
Assessment / Plan
-
79-year-old female with past medical history listed above presented to [facility] with progressive shortness of breath and was found to have murmur and NSTEMI. Left heart cath revealed LAD stenosis and echocardiogram showed severe MR and
AR, therefore, CT surgery was consulted for surgical evaluation.
#CAD s/p NSTEMI
#Severe MR
#Severe AR
- Patient's case will be discussed with attending physician. Further details regarding surgical timing intervention will be determined after attending physicians full evaluation
- Routine preoperative cardiothoracic surgery orders will be initiated.
- STS risk stratification score will be calculated after preoperative testing is complete
- Continue heparin gtt per cardiology
- Continue diureses as able
- Eventually KANCHAN
--- NOTE | 2024-08-20 16:05 | PTCARENOTE ---
TR band removed, right radial dressing CDI
[2024-08-20] MEDS: LIDOCAINE 4% PATCH 1 PATCH TOPICAL (17:02)
[2024-08-20] MEDS: LIPITOR 40 MG PO (17:03)
--- NOTE | 2024-08-20 17:11 | PTCARENOTE ---
Heparin gtt restarted at 1000 units/hr
--- NOTE | 2024-08-20 18:01 | ITS.CL.CATH ---
Solar Installation Technician - Catheterization
Cardiac Catheterization
Procedure Report:
CARDIAC CATHETERIZATION REPORT
Date of Procedure: 08/20/24
Referring: Dr. Alex Bell
INDICATION: NSTEMI
PROCEDURE:
1. Left heart catheterization
2. Coronary angiography
ACCESS:
6 Russian right radial artery
CATHETERS:
1. 6 Russian JR4
2. 6 Russian JL3.5
HEMODYNAMIC DATA
LV 93/7 (EDP 22) mmHg
AO 91/50 (mean 68) mmHg
CORONARY ANGIOGRAPHY
Dominance: right
LM: large and normal
LAD: large vessel giving rise to a large ramus/D1, moderate caliber D2, and wrapping around the apex. There is a hazy 80% stenosis in the proximal LAD just before D2 and a 50% stenosis after D2.
LCx: gives rise to a single moderate caliber branching marginal. There are mild luminal irregularities.
RCA: large vessel giving rise to a moderate-caliber RPDA and large RPL system. Trivial luminal irregularities.
Closure Device: TR band
Radiation (mGy): 228.09
DAP (cm2.Gy): 18.3692
Fluoroscopy time (minutes): 3.5
CONCLUSIONS
1. Single vessel obstructive coronary artery disease in a right dominant system.
2. Elevated LV filling pressure and no aortic stenosis.
RECOMMENDATIONS:
1. Expectant management after cardiac catheterization via right approach
2. Surgical consultation given concomitant severe MR and severe AR
3. Avoid P2Y12 given surgical evaluation
4. Continue heparin, ASA, high intensity statin, beta kin
Copy To: Tyrell King MD (PCP)
Signed: New Lombardo MD, PhD
[2024-08-20] MEDS: TOPROL XL 25 MG PO (20:35)
[2024-08-20 23:12] LABS: APTT 67.2 Sec (23.4-35.0)
[2024-08-21] VITALS (9 sets, daily range): BP systolic 93–109; BP diastolic 55–68; BMI 21.2
--- NOTE | 2024-08-21 01:09 | PTCARENOTE ---
Pt. in NSR on the monitor with PVC's, SBP stable in the low 100's so far this shift. Right radial cath dressing CDI, no hematoma, radial pulse normal. Pt. complained of left lateral neck pain at beginning of shift level 5/10, not radiating into
chest, made worse with movement. Medicated with Tylenol which relieved the pain. Heparin gtt infusing per order. Pt. currently sleeping.
--- NOTE | 2024-08-21 03:44 | PTCARENOTE ---
Pt. complained that she was feeling SOB when vitals were checked at 0300. RA pulse ox 97%, lung sounds diminished with very faint crackles in the bases. 2L O2 placed which patient stated completely alleviated SOB (pulse ox 100%). Stated she gets
anxious a lot and wasn't sure if this was what lead to the episode. Currently resting quietly.
[2024-08-21 05:23] LABS: Hematocrit 32.8 % (37.0-47.0); Hemoglobin 11.3 g/dL (12.0-16.0); Mean Corp Hgb Conc. 34.5 g/dL (33.0-37.0); Mean Corpuscular Hgb 30.2 pg (27.0-31.0); Mean Corpuscular Volume 87.7 fL (81.0-99.0); Mean Platelet Volume 10.2 fL (7.4-10.4); Platelet Count 151 10^3/uL (130-400); Red Blood Cell Count 3.74 10^6/uL (4.20-5.40); Red Cell Dist. Width 13.4 % (11.5-14.5); White Blood Cell Count 7.9 10^3/uL (4.8-10.8)
[2024-08-21 05:39] LABS: INR 1.37; PT 16.7 Sec (11.4-14.6)
[2024-08-21 05:41] LABS: APTT 72.7 Sec (23.4-35.0)
[2024-08-21 05:55] LABS: ALT (SGPT) 18 U/L (0-35); AST (SGOT) 28 U/L (14-36); Albumin 3.2 g/dl (3.5-5.0); Alkaline Phosphatase 60 U/L (38-126); Blood Urea Nitrogen 14 mg/dl (7-17); Calcium 8.3 mg/dl (8.4-10.2); Carbon Dioxide 22 mmol/L (22-30); Chloride 97 mmol/L (98-107); Direct Bilirubin 0.2 mg/dl (0.0-0.4); Estimated Creatinine Clearance 59 ml/min; Glucose 113 mg/dl (70-99); Potassium 3.5 mmol/L (3.5-5.1); Sodium 134 mmol/L (135-145); Total Bilirubin 1.1 mg/dl (0.2-1.3); eGFR > 60.00
[2024-08-21] MEDS: HEPARIN 25000 UNITS/250 ML IV (06:28)
--- NOTE | 2024-08-21 07:17 | W.PN.HOSP.TC ---
Addendum entered and electronically signed by Hao Bolanos MD 08/21/24 13:48:
I personally performed a history and physical exam of the patient and discussed management with the resident. I reviewed the resident's note and agree with the documented findings and plan of care HPI/CC except for changes in my documentation.
Late documentation.
I personally performed a history and physical exam of the patient and discussed management with the resident. I reviewed the resident's note and agree with the documented findings and plan of care HPI/CC except for changes n my documentation
Cardiovascular system S1-S2 appreciated systolic murmur at apex
Chest bilateral rales
Abdomen soft and nontender
No pedal edema
CT PE study-small to moderate bilateral pleural effusions. CT findings compatible with pulmonary edema no pericardial effusion. Moderate calcification of aortic valve. Mucous plugging/bronchial secretions. Splenic artery aneurysm 1.5 cm small to
moderate-sized hiatal hernia
Had some nausea
# Non-STEMI
Initial troponin 3.31 with chest discomfort
Continue as needed nitroglycerin, IV heparin, BB, aspirin and statin
Echo dilated LV, normal systolic function. EF 50 to 55%. LAD territory wall motion abnormality. Stage III diastolic dysfunction suggestive of restrictive filling pattern and increased filling pressures. Severe MR, severe AI, pulmonary artery
pressure 40 to 45 mmHg
Cardiac rlfe-ivzcpu-chvnnj obstructive coronary artery disease in the right dominant system. Elevated LV filling pressures. No AAS.
Due to severe MR and AR CT surgery was consulted.
Patient and daughter agreeable to proceeding with surgery for bivalvular replacement and CABG likely next week
Waiting for KANCHAN today
# Acute heart failure-acute HFpEF
proBNP 17937
Echo as above
Ischemic reasons likely along with valvular abnormality
# Severe mitral regurgitation-ischemic versus-chronic
# Anxiety and Bipolar disease-continue Lamictal, as needed Ativan
# GERD/hiatal hernia-continue PPI
# Splenic artery aneurysm 1.5 cm-repeat CAT scan in 6 months
# Diverticulosis
# DVT prophylaxis-heparin
# Full code
D/W daughter at bedside
Discussed with cardiology
Discussed with nursing at bedside
Part of this note was created using voice recognition system. Occasional wrong word or��sound alike� substitutions may have inadvertently occurred due to the inherent limitations of voice recognition software. If noted kindly bring it to my
attention for correction.
Time spent over 50 min
Original Note:
Today's Communication/Plan
-
Diuresis with Lasix 20 mg IV twice daily
KANCHAN today
Assessment / Plan
Assessment / Plan
Assessment
Acute HFpEF
NSTEMI s/p Left Heart Cath 08/20
Severe mitral regurgitation
Severe aortic regurgitation
Anemia
Conditions present prior to admission
Anxiety
Depression
GERD
Hiatal Hernia
Splenic artery aneurysm
Diverticulosis
Plan
#Acute HFpEF
#Severe mitral regurgitation
#Severe aortic regurgitation
-Surgical management likely requiring Valve replacements
-pro BNP on presentation [address]
-Echocardiogram 08/21: LVEF 50-55% Severe mitral regurgitation with anteriorly directed jet likely from torn chordae resulting in prolapse/flail of the posterior leaflet of the mitral valve. Severe aortic regurgitation.
-Continue Lasix 20 mg IV twice daily
-Monitor CRE with diuresis
-Plan is to avoid P2Y12, avoid RASS agents, avoid SGLT2i/GLP pending surgical evaluation
-KANCHAN today
#NSTEMI s/p Left Heart Cath 08/20
-s/p Left Heart Cath with 80% stenosis in the proximal LAD
-Management with Heparin, Aspirin, high intensity statin, B Joie
#Anemia
-Hemoglobin 11.3 this AM
-No active signs of bleeding, continue to trend
#Anxiety/depression
continue Lamictal, as needed Ativan
#GERD/hiatal hernia
Switch to IV PPI
#Splenic artery aneurysm 1.5 cm-repeat CAT scan in 6 months
#Diverticulosis
CODE STATUS-full code
DVT prophylaxis-heparin
Anticipated Discharge: > 48 hours
Subjective/Interval History
-
Saw patient at bedside. She complained of SOB overnight. Reports SOB improved with O2 2l nc. At this time, denies chest pain, denies palpitation. Reports shoulder pain improved with Lidocaine patch.
Objective Data
-
Labs:
Laboratory Results
08/20/24 08/21/24 08/21/24
22:51 05:10 12:05
WBC 7.9
Hgb 11.3 L
Hct 32.8 L
Plt Count 151
PT 16.7 H
INR 1.37
APTT 67.2 H 72.7 H Pending
Sodium 134 L
Potassium 3.5
Chloride 97 L
Carbon Dioxide 22
BUN 14
Creatinine 0.7
Glucose 113 H
Calcium 8.3 L
Total Bilirubin 1.1
AST 28
ALT 18
Alkaline Phosphatase 60
Vital Signs:
Vital Signs
Temp Pulse Resp BP Pulse Ox
97.7 F 91 18 93/68 97
08/21/24 03:01 08/21/24 03:00 08/21/24 03:01 08/21/24 03:00 08/21/24 03:01
I&O
08/20/24 08/21/24 08/22/24
06:59 06:59 06:59
Intake Total 250 / 250 1200 / 1200
Output Total 800 / 800 250 / 250
Balance -550 / -550 950 / 950
Review of Systems
-
All other systems: Reviewed and negative (Except as documented)
Physical Exam
-
General: No Apparent Distress and Comfortable
HEENT: Normocephalic
Respiratory: Clear to Auscultation and Crackles (Mild bilateral)
Cardiac: Regular Rhythm, S1/S2 and Murmur
GI: Soft
Musculoskeletal: No Edema
Skin: Warm and Dry
Neuro: Awake, Alert, Oriented and AO x 3
Psych: Calm
--- NOTE | 2024-08-21 07:58 | W.PN.CD ---
Today's Communication / Plan
-
KANCHAN today; surgical planning; cont. diruesis
Impression / Plan
-
79 yo female with history of mitral regurgitation presents to ED with SOB and chest pressure, found to have NSTEMI with cath demonstrating culprit LAD disease, and echo demonstrating severe MR and severe AR. She is being evaluated for surgical
MVR/AVR/CABG.
# NSTEMI
-presented with shoulder and chest pain
-troponin peak at 5.46; chest pain free now; EKG with ST, septal infarct
-[facility] 08/20/24 with severe LAD stenosis
-cont. ASA, heparin drip, statin, beta kin as BP allows
-evaluation for surgical revascularization
# Severe MR, AR
# Acute on chronic heart failure, mixed ischemic and non-ischemic
-TTE demonstrates severe MR due to likely torn chordae and severe AR, EF preserved w/ LAD RWMAs
-cont. lasix 20mg IV bid (not on diuretic at home) daily, with monitoring of labs and tele
-consult surgery for MVR/AVR/CABG
-plan for KANCHAN today, NPO
-avoid P2Y12, avoid RASS agents, avoid SGLT2i/GLP pending surgical evaluation'
# anemia
-12.7-->11.3 this morning
-no signs of bleeding
-continue to monitor
Subjective:
orthopnea and PND overnight, improved with O2; shoulder pain that improved with lido patch; no chest pain/pressure
TTE 08/20/24
Mildly dilated LV with low normal systolic function.
LVEF 50-55% by visual estimation.
LAD territory wall motion abnormality.
Stage III diastolic dysfunction suggestive of restrictive filling pattern and
increased filling pressures.
Normal right ventricular size and function.
Severe mitral regurgitation with anteriorly directed jet likely from torn
chordae resulting in prolapse/flail of the posterior leaflet of the mitral
valve.
Severe aortic regurgitation.
Estimated pulmonary artery pressure of 40-45 mmHg. Assuming a right atrial
pressure of 8 mmHg.
No prior study for comparison.
RHC/LHC 08/20/24
HEMODYNAMIC DATA
LV 93/7 (EDP 22) mmHg
AO 91/50 (mean 68) mmHg
CORONARY ANGIOGRAPHY
Dominance: right
LM: large and normal
LAD: large vessel giving rise to a large ramus/D1, moderate caliber D2, and wrapping around the apex. There is a hazy 80% stenosis in the proximal LAD just before D2 and a 50% stenosis after D2.
LCx: gives rise to a single moderate caliber branching marginal. There are mild luminal irregularities.
RCA: large vessel giving rise to a moderate-caliber RPDA and large RPL system. Trivial luminal irregularities.
Physical Exam
Vital Signs/Labs
Vital Signs
Temp Pulse Resp BP Pulse Ox
36.6 C 91 16 93/68 99
08/21/24 07:12 08/21/24 03:00 08/21/24 07:12 08/21/24 03:00 08/21/24 07:12
08/20/24 08/21/24 08/22/24
06:59 06:59 06:59
Actual Weight 59.5 kg
08/21/24 05:10
08/21/24 05:10
PT 16.7 Sec (11.4-14.6) H 08/21/24 05:10
INR 1.37 08/21/24 05:10
APTT 72.7 Sec (23.4-35.0) H 08/21/24 05:10
Magnesium 2.0 mg/dl (1.6-2.3) 08/21/24 05:10
Triglycerides 50 mg/dl (10-149) 08/20/24 05:59
LDL Cholesterol, Calc 72 mg/dl 08/20/24 05:59
VLDL Cholesterol, Calc 10 mg/dl (0-30) 08/20/24 05:59
HDL Cholesterol 61 mg/dl 08/20/24 05:59
08/19/24
01:22
Zxo-Q-Vitfpeintke Pept [id number]
LAB Results
08/19/24 08/19/24 08/19/24
01:22 04:03 10:42
Troponin I 3.310 H* 2.920 H* 5.460 H* D
08/19/24 08/19/24 08/19/24
12:15 17:41 18:15
Troponin I Cancelled 5.640 H* Cancelled
08/19/24
23:52
Troponin I 4.850 H*
Physical Exam
Constitutional: No acute distress and Comfortable
Cardiovascular: Rhythm & rate is regular, Pedal edema is absent and Systolic murmur present
Respiratory: Respiratory effort normal and Crackles Present
Neuro/Psych: Alert, Oriented and AO x 3
Data Reviewed
-
Date of Service: August 21, 2024
Medical Decision Making: Reviewed Test Results and Tests Ordered
EKG: Tracing Personally Visualized and interpreted
Echo: Tracing Personally Visualized and interpreted
X-Ray/CT/US/MRI/NUC/PET: Image Personally Visualized and interpreted
Labs: Labs Reviewed by me
[2024-08-21] MEDS: LIDOCAINE 4% PATCH 1 PATCH TOPICAL (09:01)
[2024-08-21] MEDS: LAMICTAL 200 MG PO ×2 (09:02→19:43)
[2024-08-21] MEDS: LOW STRENGTH ASPIRIN 81 MG PO (09:02)
[2024-08-21] MEDS: PROTONIX 40 MG PO (09:02)
--- NOTE | 2024-08-21 09:52 | PTCARENOTE ---
Patient complaints of nausea and dizziness. BP 109/61, HR 90, POX 98% on 2 liters NC. Gave a small sip of olu edson, NPO with small sips for KANCHAN today.
[2024-08-21] MEDS: ZOFRAN 4 MG PO (10:06)
--- NOTE | 2024-08-21 10:14 | PTCARENOTE ---
PO Zofran given. Patient did vomit a small mount of yellow emeses.
[2024-08-21 12:56] LABS: Prealbumin (Transthyretin) 12.1 mg/dl (17.6-36.0)
--- NOTE | 2024-08-21 13:34 | PTCARENOTE ---
Patient walked to the bathroom, lightheadedness, needed to lay down. Nausea slightly improved. NPO for KANCHAN today
[2024-08-21 13:37] LABS: APTT 88.5 Sec (23.4-35.0)
--- NOTE | 2024-08-21 13:49 | W.PN.UPDATE ---
Update Note
Progress Note Update
No STS category for a double valve + CABG.
Please see below for MVR + CABG and AVR + CABG.
Procedure Type:�CABG + MVR
PERIOPERATIVE OUTCOME ESTIMATE %
Operative Mortality 9.48%
Morbidity & Mortality 21.6%
Stroke 0.001%
Renal Failure 5.49%
Reoperation 8.87%
Prolonged Ventilation 14.8%
Deep Sternal Wound Infection 0.091%
Long Hospital Stay (>14 days) 20.3%
Short Hospital Stay (<6 days)* 6.23%
Clinical Summary
Planned Surgery: CABG + MVR, Urgent, First cardiovascular surgery
Demographics: 79 year old, White, female, 59.5kg, 168cm, BMI: 21.1 kg/m�
Lab Values: Creatinine: 0.7 mg/dL, Hematocrit: 32.8%, WBC Count: 7.9 10�/�L, Platelet Count: 190034 cells/�L
Substance Abuse: Never smoker
Cardiac Status: Acute and chronic heart failure, NYHA Class III, Ejection Fraction = 50%
Coronary Artery Disease: 2 vessels diseased, Proximal LAD Stenosis >=70%, Non-ST Elevation NM, NM: 1 to 7 Days
Valve Disease: Severe AR, Severe MR, Mild TR
Procedure Type:�CABG + AVR
PERIOPERATIVE OUTCOME ESTIMATE %
Operative Mortality 6.31%
Morbidity & Mortality 17.5%
Stroke 2.55%
Renal Failure 2.12%
Reoperation 5.68%
Prolonged Ventilation 10.3%
Deep Sternal Wound Infection 0.089%
Long Hospital Stay (>14 days) 12.9%
Short Hospital Stay (<6 days)* 14.6%
Clinical Summary
Planned Surgery: CABG + AVR, Urgent, First cardiovascular surgery
Demographics: 79 year old, White, female, 59.5kg, 168cm, BMI: 21.1 kg/m�
Lab Values: Creatinine: 0.7 mg/dL, Hematocrit: 32.8%, WBC Count: 7.9 10�/�L, Platelet Count: 543465 cells/�L
Substance Abuse: Never smoker
Cardiac Status: Acute and chronic heart failure, NYHA Class III, Ejection Fraction = 50%
Coronary Artery Disease: 2 vessels diseased, Proximal LAD Stenosis >=70%, Non-ST Elevation NM, NM: 1 to 7 Days
Valve Disease: Severe AR, Severe MR, Mild TR
--- NOTE | 2024-08-21 13:57 | PTCARENOTE ---
PTT 88.5, no change in heparin gtt rate. PTT 1900 today
--- NOTE | 2024-08-21 14:25 | PTCARENOTE ---
KANCHAN scheduled for tomorrow, diet resumed
[2024-08-21] MEDS: LASIX 20 MG IV (16:52)
[2024-08-21] MEDS: KCL 40 MEQ PO (16:53)
[2024-08-21] MEDS: LIPITOR 40 MG PO (16:56)
[2024-08-21] MEDS: SENOKOT-S PO (19:43)
--- NOTE | 2024-08-21 20:50 | PTCARENOTE ---
received patient at the change of shift. AAOx3. assisted patient to the bathroom. sat at edge of bed prior to standing. patient states that helped. no lightheadedness/dizziness. denies any pain at this time. mild dyspnea on exertion noted. patient
requesting ativan and oxygen, for comfort, to sleep tonight. removed R radial dressing-NIMISHA/intact. heparin gtt infusing at 12 ml/hr per protocol. educated patient to inform RN with any changes. call maurice within reach.
[2024-08-21 21:35] LABS: Urine Albumin Negative (Neg - Trace); Urine Bilirubin Negative (Negative); Urine Character Clear (Clear); Urine Color Yellow; Urine Glucose Negative (Negative); Urine Ketone Negative (Negative); Urine Leukocyte 1+ (Negative); Urine Nitrite Negative (Negative); Urine Occult Blood 2+ (Negative); Urine Urobilinogen Negative (Neg - 1+)
[2024-08-21 21:46] LABS: Urine Bacteria Moderate (Negative)
[2024-08-21] MEDS: TOPROL XL 25 MG PO (22:12)
[2024-08-21] MEDS: ATIVAN 0.5 MG PO (22:12)
--- NOTE | 2024-08-21 22:19 | PTCARENOTE ---
+ UA. updated Tramaine [place].
[2024-08-22 04:24] VITALS: BP 100/61
[2024-08-22] MEDS: HEPARIN 25000 UNITS/250 ML IV (04:30)
[2024-08-22 05:14] LABS: Hematocrit 32.8 % (37.0-47.0); Hemoglobin 11.2 g/dL (12.0-16.0); Mean Corp Hgb Conc. 34.1 g/dL (33.0-37.0); Mean Corpuscular Hgb 29.1 pg (27.0-31.0); Mean Corpuscular Volume 85.2 fL (81.0-99.0); Mean Platelet Volume 10.8 fL (7.4-10.4); Platelet Count 197 10^3/uL (130-400); Red Blood Cell Count 3.85 10^6/uL (4.20-5.40); Red Cell Dist. Width 13.4 % (11.5-14.5)
[2024-08-22 05:18] LABS: APTT 84.3 Sec (23.4-35.0)
[2024-08-22 05:29] VITALS: BMI 21.1
--- NOTE | 2024-08-22 05:31 | PTCARENOTE ---
NPO since midnight. denies any cp. vital stable overnight. no lightheadedness/dizziness. heparin infusing per protocol.
[2024-08-22 05:36] LABS: Blood Urea Nitrogen 18 mg/dl (7-17); Calcium 8.4 mg/dl (8.4-10.2); Carbon Dioxide 24 mmol/L (22-30); Chloride 101 mmol/L (98-107); Estimated Creatinine Clearance 46 ml/min; Glucose 110 mg/dl (70-99); Potassium 4.1 mmol/L (3.5-5.1); Sodium 137 mmol/L (135-145); eGFR > 60.00
[2024-08-22 07:33] VITALS: BP 101/63
--- NOTE | 2024-08-22 09:21 | W.PN.UPDATE ---
Update Note
Progress Note Update
KANCHAN pending. Tentative surgery date will be Friday 08/[address] Gipson. Continue ongoing pre-operative work up.
--- NOTE | 2024-08-22 10:24 | W.PN.HOSP.TC ---
Addendum entered and electronically signed by Hao Bolanos MD 08/22/24 15:18:
I personally performed a history and physical exam of the patient and discussed management with the resident. I reviewed the resident's note and agree with the documented findings and plan of care HPI/CC except for changes in my documentation.
Seen earlier , late documentation.
CVS: S1-S2 normal, sm at apex, edm apex
Chest: rales
Abdomen: Soft, NT / Bowel sounds present
Extremities: No edema, normal pulses
[employer]: Non focal exam
TE Echo-hypokinesis of the apical septal wall and apex. EF 45 to 50%. Thickened mitral valve leaflet with partial flail on the P1 scallop with severe MR. Calcified aortic valve with a fixed at left coronary in the open position with moderate
regurgitation
# Non-STEMI
Initial troponin 3.31 with chest discomfort
Continue as needed nitroglycerin, IV heparin, BB, aspirin and statin
Echo dilated LV, normal systolic function. EF 50 to 55%. LAD territory wall motion abnormality. Stage III diastolic dysfunction suggestive of restrictive filling pattern and increased filling pressures. Severe MR, severe AI, pulmonary artery
pressure 40 to 45 mmHg
Cardiac urhu-zavwuc-dqqryi obstructive coronary artery disease in the right dominant system. Elevated LV filling pressures.
Due to severe MR and AR, CT surgery was consulted.
Patient and daughters agreeable to proceeding with surgery for bivalvular replacement and CABG likely next week
KANCHAN as above
Tentative surgery on 08/24/24
# Acute heart failure-acute HFpEF
proBNP 56134
Echo as above
Ischemic reasons likely along with valvular abnormality
# Severe mitral regurgitation-ischemic versus-chronic
# Anxiety and Bipolar disease-continue Lamictal, as needed Ativan
# GERD/hiatal hernia-continue PPI
# Splenic artery aneurysm 1.5 cm-repeat CAT scan in 6 months
# Diverticulosis
# DVT prophylaxis-heparin
# Full code
D/W daughters at bedside
Discussed with cardiology at bed side
Discussed with nursing at bedside
Part of this note was created using voice recognition system. Occasional wrong word or��sound alike� substitutions may have inadvertently occurred due to the inherent limitations of voice recognition software. If noted kindly bring it to my
attention for correction.
Original Note:
Today's Communication/Plan
-
Abx for UTI
surgery for bivalvular replacement and CABG 08/24
Diuresis with Lasix
Assessment / Plan
Assessment / Plan
Assessment
Acute HFpEF
NSTEMI s/p Left Heart Cath 08/20
Severe mitral regurgitation
Severe aortic regurgitation
Anemia
UTI
Conditions present prior to admission
Anxiety
Depression
GERD
Hiatal Hernia
Splenic artery aneurysm
Diverticulosis
Plan
#Acute HFpEF
#Severe mitral regurgitation
#Severe aortic regurgitation
-Surgical management likely requiring Valve replacements and repair Friday 08/[address] Gipson
-KANCHAN 08/22 Left ventricular ejection fraction is 45-50%. Thickened mitral valve leaflet with partial flail of the P1 scallop with severe
mitral regurgitation. Calcified aortic valve with a fixed left coronary cusp in the open position with moderate regurgitation
-Continue Lasix 20 mg IV twice daily
-Monitor CRE with diuresis
-Plan is to avoid P2Y12, avoid RASS agents, avoid SGLT2i/GLP pending surgical evaluation
#NSTEMI s/p Left Heart Cath 08/20
-s/p Left Heart Cath with 80% stenosis in the proximal LAD
-Management with Heparin, Aspirin, high intensity statin, B Joie
#Anemia
-Hogtylzmkt99.7>>11.3>>11.2 this AM
-No active signs of bleeding, continue to trend
#UTI
Urinalysis positive, urine culture pending.
Ceftriaxone IV abx.
#Anxiety/depression
continue Lamictal, as needed Ativan
#GERD/hiatal hernia
Switch to IV PPI
#Splenic artery aneurysm 1.5 cm-repeat CAT scan in 6 months
#Diverticulosis
CODE STATUS-full code
DVT prophylaxis-heparin
Anticipated Discharge: > 48 hours
Subjective/Interval History
-
Saw patient at bedside. Patient reports Symptoms of dysuria started today.
Objective Data
-
Labs:
Laboratory Results
08/22/24
04:29
WBC 8.0
Hgb 11.2 L
Hct 32.8 L
Plt Count 197 D
APTT 84.3 H
Sodium 137
Potassium 4.1
Chloride 101
Carbon Dioxide 24
BUN 18 H
Creatinine 0.9
Glucose 110 H
Calcium 8.4
Vital Signs:
Vital Signs
Temp Pulse Resp BP Pulse Ox
97.9 F 84 16 101/63 98
08/22/24 07:34 08/22/24 08:00 08/22/24 07:34 08/22/24 07:33 08/22/24 08:44
I&O
08/21/24 08/22/24 08/23/24
06:59 06:59 06:59
Intake Total 1200 / 1200 860 / 860
Output Total 250 / 250 1500 / 1500
Balance 950 / 950 -640 / -640
Review of Systems
-
All other systems: Reviewed and negative (Except as documented)
Physical Exam
-
General: No Apparent Distress
Respiratory: Negative Wheezes, Rales or Crackles
Cardiac: Regular Rhythm, S1/S2 and Murmur
GI: Soft, Nontender, Nondistended and Normal Bowel Sounds
Neuro: Awake, Alert, Oriented and AO x 3
Psych: Calm
[2024-08-22 11:54] VITALS: BP 57/38; BP 97/54; BP 97/64
[2024-08-22] MEDS: LAMICTAL 200 MG PO ×2 (12:00→19:41)
[2024-08-22] MEDS: LOW STRENGTH ASPIRIN 81 MG PO (12:01)
[2024-08-22] MEDS: KCL 20 MEQ PO (12:01)
[2024-08-22] MEDS: LASIX 20 MG IV ×2 (12:02→15:29)
[2024-08-22] MEDS: MIRALAX 17 GRAMS PO (12:02)
[2024-08-22] MEDS: NSS (PRESERVATIVE FREE) 10 ML IV (12:03)
[2024-08-22] MEDS: PROTONIX IV 40 MG IV (12:03)
--- NOTE | 2024-08-22 12:29 | W.PN.CD ---
Today's Communication / Plan
-
surgical planning underway
continue diuresis
renew hep gtt
Impression / Plan
-
79 yo female with history of mitral regurgitation presents to ED with SOB and chest pressure, found to have NSTEMI with cath demonstrating culprit LAD disease, and echo demonstrating severe MR and severe AR. She is being evaluated for surgical
MVR/AVR/CABG.
# NSTEMI
-presented with shoulder and chest pain
-troponin peak at 5.46; chest pain free now; EKG with ST, septal infarct
-[facility] 08/20/24 with severe LAD stenosis
-cont. ASA, heparin drip(intensive monitoring required), statin, beta kin as BP allows
-evaluation for surgical revascularization
# Severe MR, AR
- -TTE with EF 45-50%, hypokinesis of the apical septal wall and apex, Severe MR with p1 flail and At least moderate .
-results discussed with Dr Gipson and Dr Bolanos
# Acute on chronic heart failure, mixed ischemic and non-ischemic
-TTE demonstrates severe MR due to likely torn chordae and severe AR, EF preserved w/ LAD RWMAs
-cont. lasix 20mg IV bid (not on diuretic at home) daily, with intensive monitoring
-consult surgery for MVR/AVR/CABG
-avoid P2Y12, avoid RASS agents, avoid SGLT2i/GLP pending surgical evaluation'
# anemia
-12.7-->11.3 this morning
-no signs of bleeding
-continue to monitor
Subjective:
cannot take a deep breath without coughing but otherwise no cp
TTE 08/20/24
Mildly dilated LV with low normal systolic function.
LVEF 50-55% by visual estimation.
LAD territory wall motion abnormality.
Stage III diastolic dysfunction suggestive of restrictive filling pattern and
increased filling pressures.
Normal right ventricular size and function.
Severe mitral regurgitation with anteriorly directed jet likely from torn
chordae resulting in prolapse/flail of the posterior leaflet of the mitral
valve.
Severe aortic regurgitation.
Estimated pulmonary artery pressure of 40-45 mmHg. Assuming a right atrial
pressure of 8 mmHg.
No prior study for comparison.
RHC/LHC 08/20/24
HEMODYNAMIC DATA
LV 93/7 (EDP 22) mmHg
AO 91/50 (mean 68) mmHg
CORONARY ANGIOGRAPHY
Dominance: right
LM: large and normal
LAD: large vessel giving rise to a large ramus/D1, moderate caliber D2, and wrapping around the apex. There is a hazy 80% stenosis in the proximal LAD just before D2 and a 50% stenosis after D2.
LCx: gives rise to a single moderate caliber branching marginal. There are mild luminal irregularities.
RCA: large vessel giving rise to a moderate-caliber RPDA and large RPL system. Trivial luminal irregularities.
Physical Exam
Vital Signs/Labs
Vital Signs
Temp Pulse Resp BP Pulse Ox
97.6 F 97 16 57/38 100
08/22/24 11:59 08/22/24 11:54 08/22/24 11:59 08/22/24 11:54 08/22/24 11:59
08/21/24 08/22/24 08/23/24
06:59 06:59 06:59
Actual Weight 59.3 kg
08/22/24 04:29
08/22/24 04:29
PT 16.7 Sec (11.4-14.6) H 08/21/24 05:10
INR 1.37 08/21/24 05:10
APTT 84.3 Sec (23.4-35.0) H 08/22/24 04:29
Magnesium 2.0 mg/dl (1.6-2.3) 08/21/24 05:10
Triglycerides 50 mg/dl (10-149) 08/20/24 05:59
LDL Cholesterol, Calc 72 mg/dl 08/20/24 05:59
VLDL Cholesterol, Calc 10 mg/dl (0-30) 08/20/24 05:59
HDL Cholesterol 61 mg/dl 08/20/24 05:59
08/19/24
01:22
Ezt-M-Xsfvziehusf Pept [id number]
LAB Results
08/19/24 08/19/24 08/19/24
12:15 17:41 18:15
Troponin I Cancelled 5.640 H* Cancelled
08/19/24
23:52
Troponin I 4.850 H*
Physical Exam
Constitutional: No acute distress
Cardiovascular: Rhythm & rate is regular, Systolic murmur present and S1S2 is normal
Respiratory: Respiratory effort normal, Wheeze Absent, Crackles Absent, Rhonchi Absent and Other (coughs with every breath)
Neuro/Psych: AO x 3
Data Reviewed
-
Date of Service: August 22, 2024
Medical Decision Making: Review of Case with other Provider (discuss yifan findings with ct surgery and Dr Bolanos)
--- NOTE | 2024-08-22 13:51 | CM ---
Reviewed chart. Met with Mrs. Godoy and her two daughters to review discharge plans. She states prior to admission she resides with her daughter and son-in-law with two steps to enter the home. She states she has fifteen steps to get to the
bedroom/full bathroom. She states she has a powder room on the first floor. She states prior to admission she was independent with ambulation and adls. She states she does not have any DME in the home. Her daughter states she works from home and
her spouse also works from home and will be available to assist in her care if needed. Mrs. Devi states she would like to explore rehab. if she will need that level of care. She states she has a prescription plan. Medical work-up in progress.
The discharge plan is to return home with her daughter and a home visit by the Cardiothoracic Transitional Care Nurse versus some level of inpatient rehab. when medically stable.
We reviewed pre-op and post-op routines We briefly reviewed the shower instructions. Also we reviewed restrictions including sternal precautions and driving restrictions. Gave her the Cardiothoracic Surgery Educational Booklet. We discussed a
home visit by the Cardiothoracic Transitional Care Nurse. She is agreeable to a home visit. The plan is to MVR/AVR/CABG on Friday, August 24.
[2024-08-22] MEDS: SENOKOT-S PO (15:11)
[2024-08-22] MEDS: LIDOCAINE 4% PATCH TOPICAL (15:11)
[2024-08-22 15:27] VITALS: BP 99/58
[2024-08-22] MEDS: ROCEPHIN 1000 MG IV (15:28)
[2024-08-22] MEDS: STERILE WATER FOR INJECTION 10 ML IV (15:29)
[2024-08-22] MEDS: LIPITOR 40 MG PO (17:31)
--- NOTE | 2024-08-22 18:39 | PTCARENOTE ---
Pt had a KANCHAN, recovered without problem. Pt denies any discomfort today. Pt OOB to bathroom with assistance, no dizziness or nausea but she is easily fatigued and able to walk short distances only. Pt drinking ensure with each meal and had a BM
after prune juice. Telemetry shows sinus rhythm.
[2024-08-22] MEDS: SENOKOT-S 1 TABLET PO (19:41)
[2024-08-22 19:44] VITALS: BP 107/57
--- NOTE | 2024-08-22 20:20 | PTCARENOTE ---
Received patient at change of shift. Patient resting in bed, but alert and oriented, awake to verbalization. Heparin drip running @ 1200 units/hr in right AC. Right radial site intact and open to air-- little ecchymotic. BP 107/57, SR 90s, 98% on
2L. Discussed plan of care and patient verbalized understanding. Call maurice within reach.
[2024-08-22] MEDS: TOPROL XL 25 MG PO (22:15)
[2024-08-22 22:18] VITALS: BP 103/57
[2024-08-22] MEDS: ATIVAN 0.5 MG PO (22:20)
[2024-08-23] MEDS: HEPARIN 25000 UNITS/250 ML IV ×2 (01:27→23:03)
[2024-08-23 03:59] VITALS: BP 99/57
[2024-08-23 04:54] LABS: Hemoglobin 11.1 g/dL (12.0-16.0); Mean Corp Hgb Conc. 33.6 g/dL (33.0-37.0); Mean Corpuscular Hgb 29.8 pg (27.0-31.0); Mean Corpuscular Volume 88.5 fL (81.0-99.0); Mean Platelet Volume 10.5 fL (7.4-10.4); Platelet Count 213 10^3/uL (130-400); Red Blood Cell Count 3.73 10^6/uL (4.20-5.40); Red Cell Dist. Width 13.2 % (11.5-14.5); White Blood Cell Count 7.2 10^3/uL (4.8-10.8)
[2024-08-23 05:03] LABS: APTT 114.8 Sec (23.4-35.0)
[2024-08-23 05:19] LABS: Blood Urea Nitrogen 19 mg/dl (7-17); Calcium 8.2 mg/dl (8.4-10.2); Carbon Dioxide 24 mmol/L (22-30); Chloride 100 mmol/L (98-107); Estimated Creatinine Clearance 52 ml/min; Glucose 105 mg/dl (70-99); Sodium 136 mmol/L (135-145); eGFR > 60.00
--- NOTE | 2024-08-23 07:41 | W.PN.CD ---
Today's Communication / Plan
-
continue eval for high risk surgery (AVR/MVR/CABG)
Impression / Plan
-
79 yo female with history of mitral regurgitation presents to ED with SOB and chest pressure, found to have NSTEMI with cath demonstrating culprit LAD disease, and echo demonstrating severe MR and severe AR. She is being evaluated for surgical
MVR/AVR/CABG.
# NSTEMI
-presented with shoulder and chest pain
-troponin peak at 5.46; chest pain free now; EKG with ST, septal infarct
-[facility] 08/20/24 with severe LAD stenosis
-cont. ASA, heparin drip(intensive monitoring required), statin, beta kin as BP allows
-evaluation for surgical revascularization
# Severe MR, AR
-Difficult situation as optimal surgery will require AVR/MVR/CABG. High risk tierra in 79 yo
- -TTE with EF 45-50%, hypokinesis of the apical septal wall and apex, Severe MR with p1 flail and severe AI
- KACNHAN similar
# Acute on chronic heart failure, mixed ischemic and non-ischemic
-TTE demonstrates severe MR due to likely torn chordae and severe AR, EF preserved w/ LAD RWMAs
-cont. lasix 20mg IV bid (not on diuretic at home) daily, with intensive monitoring
-consult surgery for MVR/AVR/CABG
-avoid P2Y12, avoid RASS agents, avoid SGLT2i/GLP pending surgical evaluation'
# anemia
-12.7-->11.3 this morning
-no signs of bleeding
-continue to monitor
Subjective:
NO CP, breathing OK
TTE 08/20/24
Mildly dilated LV with low normal systolic function.
LVEF 50-55% by visual estimation.
LAD territory wall motion abnormality.
Stage III diastolic dysfunction suggestive of restrictive filling pattern and
increased filling pressures.
Normal right ventricular size and function.
Severe mitral regurgitation with anteriorly directed jet likely from torn
chordae resulting in prolapse/flail of the posterior leaflet of the mitral
valve.
Severe aortic regurgitation.
Estimated pulmonary artery pressure of 40-45 mmHg. Assuming a right atrial
pressure of 8 mmHg.
No prior study for comparison.
RHC/LHC 08/20/24
HEMODYNAMIC DATA
LV 93/7 (EDP 22) mmHg
AO 91/50 (mean 68) mmHg
CORONARY ANGIOGRAPHY
Dominance: right
LM: large and normal
LAD: large vessel giving rise to a large ramus/D1, moderate caliber D2, and wrapping around the apex. There is a hazy 80% stenosis in the proximal LAD just before D2 and a 50% stenosis after D2.
LCx: gives rise to a single moderate caliber branching marginal. There are mild luminal irregularities.
RCA: large vessel giving rise to a moderate-caliber RPDA and large RPL system. Trivial luminal irregularities.
Physical Exam
Vital Signs/Labs
Vital Signs
Temp Pulse Resp BP Pulse Ox
99.1 F 87 14 99/57 99
08/23/24 03:55 08/23/24 04:00 08/23/24 03:55 08/23/24 03:59 08/23/24 03:55
08/22/24 08/23/24 08/24/24
06:59 06:59 06:59
Actual Weight 130 lb 11.746 oz
08/23/24 04:08
08/23/24 04:08
PT 16.7 Sec (11.4-14.6) H 08/21/24 05:10
INR 1.37 08/21/24 05:10
APTT 114.8 Sec (23.4-35.0) H 08/23/24 04:08
Magnesium 2.0 mg/dl (1.6-2.3) 08/21/24 05:10
Triglycerides 50 mg/dl (10-149) 08/20/24 05:59
LDL Cholesterol, Calc 72 mg/dl 08/20/24 05:59
VLDL Cholesterol, Calc 10 mg/dl (0-30) 08/20/24 05:59
HDL Cholesterol 61 mg/dl 08/20/24 05:59
08/19/24
01:22
Pjx-U-Wurnovmmdyb Pept [id number]
Physical Exam
Constitutional: No acute distress and Comfortable
Cardiovascular: Rhythm & rate is regular and Systolic murmur present (Harsh systolic murmur apex)
Respiratory: Respiratory effort normal, Lungs clear to auscul., Wheeze Absent and Crackles Absent
GI: Soft, Flat and Non tender
Neuro/Psych: AO x 3 and Motor deficits absent
Data Reviewed
-
Date of Service: August 23, 2024
[2024-08-23 08:20] VITALS: BP 106/67
--- NOTE | 2024-08-23 08:42 | W.PN.HOSP.TC ---
Addendum entered and electronically signed by Hao Bolanos MD 08/23/24 15:13:
I personally performed a history and physical exam of the patient and discussed management with the resident. I reviewed the resident's note and agree with the documented findings and plan of care HPI/CC except for changes in my documentation.
Seen earlier , late documentation.
CVS: S1-S2 normal, sm at apex, edm apex
Chest: rales
Abdomen: Soft, NT / Bowel sounds present
Extremities: No edema, normal pulses
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
TE Echo-hypokinesis of the apical septal wall and apex. EF 45 to 50%. Thickened mitral valve leaflet with partial flail on the P1 scallop with severe MR. Calcified aortic valve with a fixed at left coronary in the open position with moderate
regurgitation
# Non-STEMI
Initial troponin 3.31 with chest discomfort
Continue as needed nitroglycerin, IV heparin, BB, aspirin and statin
Echo dilated LV, normal systolic function. EF 50 to 55%. LAD territory wall motion abnormality. Stage III diastolic dysfunction suggestive of restrictive filling pattern and increased filling pressures. Severe MR, severe AI, pulmonary artery
pressure 40 to 45 mmHg
Cardiac ndon-pmsoed-gjsbah obstructive coronary artery disease in the right dominant system. Elevated LV filling pressures.
Due to severe MR and AR, CT surgery was consulted.
Patient and daughters agreeable to proceeding with surgery for bivalvular replacement and CABG likely next week
KANCHAN as above
Tentative surgery on 08/24/24
#Abnormal U/A CX neg- D/C AB
# Acute heart failure-acute HFpEF
proBNP 52936
Echo as above
Ischemic reasons likely along with valvular abnormality
# Severe mitral regurgitation-ischemic versus-chronic
# Anxiety and Bipolar disease-continue Lamictal, as needed Ativan
# GERD/hiatal hernia-continue PPI
# Splenic artery aneurysm 1.5 cm-repeat CAT scan in 6 months
# Diverticulosis
# DVT prophylaxis-heparin
# Full code
Original Note:
Today's Communication/Plan
-
Tentative surgery on 08/24/24
Assessment / Plan
Assessment / Plan
Assessment
Acute HFpEF
NSTEMI s/p Left Heart Cath 08/20
Severe mitral regurgitation
Severe aortic regurgitation
Anemia
UTI
Conditions present prior to admission
Anxiety
Depression
GERD
Hiatal Hernia
Splenic artery aneurysm
Diverticulosis
Plan
#Acute HFpEF
#Severe mitral regurgitation
#Severe aortic regurgitation
-Surgical management likely requiring Valve replacements and repair Friday 08/[address] Gipson
-KANCHAN 08/22 Left ventricular ejection fraction is 45-50%. Thickened mitral valve leaflet with partial flail of the P1 scallop with severe
mitral regurgitation. Calcified aortic valve with a fixed left coronary cusp in the open position with moderate regurgitation
-Continue Lasix 20 mg IV twice daily
-Monitor CRE with diuresis
-Plan is to avoid P2Y12, avoid RASS agents, avoid SGLT2i/GLP pending surgical evaluation
#NSTEMI s/p Left Heart Cath 08/20
-s/p Left Heart Cath with 80% stenosis in the proximal LAD
-Management with Heparin, Aspirin, high intensity statin, B Joie
#Anemia
-Iygygfwakf21.7>>11.3>>11.2>>11.1 this AM
-No active signs of bleeding, continue to trend
#UTI
Urinalysis positive, urine culture pending.
Ceftriaxone IV abx(D2)
#Anxiety/depression
continue Lamictal, as needed Ativan
#GERD/hiatal hernia
Switch to IV PPI
#Splenic artery aneurysm 1.5 cm-repeat CAT scan in 6 months
#Diverticulosis
CODE STATUS-full code
DVT prophylaxis-heparin
Anticipated Discharge: > 48 hours
Subjective/Interval History
-
Patient reports dysuria resolved. Denies Chest pain
Objective Data
-
Labs:
Laboratory Results
08/23/24 08/23/24
04:08 11:00
WBC 7.2
Hgb 11.1 L
Hct 33.0 L
Plt Count 213
APTT 114.8 H Pending
Sodium 136
Potassium 4.0
Chloride 100
Carbon Dioxide 24
BUN 19 H
Creatinine 0.8
Glucose 105 H
Calcium 8.2 L
Vital Signs:
Vital Signs
Temp Pulse Resp BP Pulse Ox
97.9 F 87 18 99/57 98
08/23/24 08:19 08/23/24 04:00 08/23/24 08:19 08/23/24 03:59 08/23/24 08:19
I&O
08/22/24 08/23/24 08/24/24
06:59 06:59 06:59
Intake Total 860 / 860 890 / 890
Output Total 1500 / 1500
Balance -640 / -640 890 / 890
Review of Systems
-
All other systems: Reviewed and negative (except as documented)
Physical Exam
-
General: No Apparent Distress
Respiratory: Crackles
Cardiac: Regular Rhythm, S1/S2 and Murmur
GI: Soft, Nontender and Nondistended
Musculoskeletal: No Edema
Neuro: Nonfocal/Grossly Intact
Psych: Calm
[2024-08-23] MEDS: LASIX 20 MG IV ×2 (08:47→14:49)
[2024-08-23] MEDS: LIDOCAINE 4% PATCH TOPICAL (08:47)
[2024-08-23] MEDS: MIRALAX PO (08:47)
[2024-08-23] MEDS: LOW STRENGTH ASPIRIN 81 MG PO (08:48)
[2024-08-23] MEDS: LAMICTAL 200 MG PO ×2 (08:48→19:26)
[2024-08-23] MEDS: SENOKOT-S 1 TABLET PO (08:48)
[2024-08-23] MEDS: PROTONIX IV 40 MG IV (08:48)
[2024-08-23] MEDS: NSS (PRESERVATIVE FREE) 10 ML IV (08:48)
[2024-08-23] MEDS: KCL 20 MEQ PO (08:48)
[2024-08-23 11:24] LABS: APTT 72.3 Sec (23.4-35.0)
[2024-08-23 11:34] VITALS: BP 96/48
--- NOTE | 2024-08-23 11:35 | CM ---
Reviewed chart. Met with Mrs. Devi and her daughters to review discharge plans. Prior to admission she resides with her daughter and son-in-law in a two story home with two steps to enter. She has fifteen steps to get to bedroom/full
bathroom. She has a powder room on the first floor. Prior to admission she was independent with ambulation and adls. She does not have any DME in the home. Her daughter and son-in-law both network control supervisor and will be available to assist in her care
if needed. She has a prescription plan. Mrs. Godoy would like to explore some level of inpatient rehab. if indicated. Medical work-up in progress. The discharge plan is to return home with her daughter and son-in-law with a home visit by the
Cardiothoracic Transitional Care Nurse verses some level of inpatient rehab. when medically stable.
[2024-08-23] MEDS: MIRALAX 17 GRAMS PO (12:42)
[2024-08-23] MEDS: STERILE WATER FOR INJECTION 10 ML IV (14:39)
[2024-08-23] MEDS: ROCEPHIN 1000 MG IV (14:39)
[2024-08-23 14:46] VITALS: BP 100/63
[2024-08-23] MEDS: LIPITOR 40 MG PO (17:42)
--- NOTE | 2024-08-23 19:13 | PTCARENOTE ---
Pt OOB to chair and walking to bathroom. Pt continues to use humidified oxygen 'because it makes her feel better'. Telemetry shows sinus rhythm. Pt visiting with her daughters all day. Plan CVOR prep tonight.
[2024-08-23] MEDS: SENOKOT-S PO (19:26)
[2024-08-23 19:28] VITALS: BP 111/62
[2024-08-23 22:03] VITALS: BP 105/60
[2024-08-23] MEDS: TOPROL XL 25 MG PO (22:07)
[2024-08-23 23:21] LABS: APTT 84.8 Sec (23.4-35.0)
[2024-08-24] VITALS (16 sets, daily range): BP systolic 81–119; BP diastolic 54–63; BMI 20.8
--- NOTE | 2024-08-24 05:46 | W.CVOR.SURPR ---
CVOR Surgeon Immed Pre Op
-
I have examined this patient prior to performance of the scheduled procedure.
The patient's condition is unchanged from the time of the dictated/written History and
Physical and the patient is able to undergo the scheduled procedure.
Sternotomy high risk AVR MV repair/replacement, CABG x 2 + GUILHERME CLip +/- TV repair
[2024-08-24] MEDS: PROTONIX 40 MG PO (06:05)
[2024-08-24] MEDS: MAGNESIUM OXIDE 500 MG PO (06:05)
[2024-08-24] MEDS: LOPRESSOR 25 MG PO (06:05)
[2024-08-24] MEDS: BACTROBAN 2% OINTMENT 1 APPLIC NASAL ×2 (06:05→20:12)
--- NOTE | 2024-08-24 06:19 | PTCARENOTE ---
Pt. had no complaints of dizziness or nausea overnight, tolerated clip & CHG prep/shower x 2 with heavy assistance. NSR on the monitor. All pre-op orders completed.
[2024-08-24 07:26] LABS: ACT+ - POC 101 Seconds (82-134)
[2024-08-24 07:55] LABS: Urine Albumin Negative (Neg - Trace); Urine Bilirubin Negative (Negative); Urine Character Clear (Clear); Urine Color Yellow; Urine Glucose Negative (Negative); Urine Ketone Negative (Negative); Urine Leukocyte Negative (Negative); Urine Nitrite Negative (Negative); Urine Occult Blood 2+ (Negative); Urine Urobilinogen Negative (Neg - 1+)
[2024-08-24 08:10] LABS: Urine Bacteria Few (Negative); Urine White Cell 0-2 /HPF (0-5)
--- NOTE | 2024-08-24 08:22 | W.PN.UPDATE ---
Update Note
Progress Note Update
Patient transferred to CTS service now. Please call us if needed.
[2024-08-24 09:25] LABS: ACT+ - POC 474 Seconds (82-134)
[2024-08-24 09:51] LABS: B.E. - POC 1.6 mmol/L; Glucose - POC 118 mg/dl (70-99); HCO3 - POC 25 mmol/L (21-29); Hematocrit - POC 33 % PCV (37-47); Hemodilution- POC No; Hemoglobin Calculated - POC 11.2; Ionized Calcium - POC 1.12 mmol/L (1.12-1.27); O2 Saturation %Calculated-POC 99.2 5 (92-96); PCO2 - POC 35 mmHg (35-45); PO2 - POC 131 mmHg (80-100); POC Comment PRE; Potassium - POC 3.8 mmol/L (3.6-5.0); Sodium - POC 135 mmol/L (135-145); pH - POC 7.47 (7.35-7.45)
[2024-08-24 09:58] LABS: ACT+ - POC 542 Seconds (82-134)
[2024-08-24 10:19] LABS: B.E. - POC 5.9 mmol/L; Glucose - POC 138 mg/dl (70-99); HCO3 - POC 29 mmol/L (21-29); Hematocrit - POC 25 % PCV (37-47); Hemodilution- POC Yes; Hemoglobin Calculated - POC 8.6; Ionized Calcium - POC 0.96 mmol/L (1.12-1.27); PCO2 - POC 35 mmHg (35-45); PO2 - POC 413 mmHg (80-100); POC Comment CPB; Potassium - POC 4.6 mmol/L (3.6-5.0); Sodium - POC 134 mmol/L (135-145); pH - POC 7.52 (7.35-7.45)
[2024-08-24 10:30] LABS: ACT+ - POC 490 Seconds (82-134)
[2024-08-24 10:49] LABS: B.E. - POC 6.9 mmol/L; Glucose - POC 183 mg/dl (70-99); HCO3 - POC 30 mmol/L (21-29); Hematocrit - POC 29 % PCV (37-47); Hemodilution- POC Yes; Hemoglobin Calculated - POC 9.8; Ionized Calcium - POC 1.01 mmol/L (1.12-1.27); O2 Saturation %Calculated-POC 99.9 5 (92-96); PCO2 - POC 36 mmHg (35-45); PO2 - POC 290 mmHg (80-100); POC Comment CPB; Potassium - POC 4.5 mmol/L (3.6-5.0); Sodium - POC 136 mmol/L (135-145); pH - POC 7.53 (7.35-7.45)
[2024-08-24 11:01] LABS: ACT+ - POC 534 Seconds (82-134)
[2024-08-24 11:23] LABS: B.E. - POC 4.6 mmol/L; Glucose - POC 161 mg/dl (70-99); HCO3 - POC 28 mmol/L (21-29); Hematocrit - POC 28 % PCV (37-47); Hemodilution- POC Yes; Hemoglobin Calculated - POC 9.5; Ionized Calcium - POC 1.02 mmol/L (1.12-1.27); O2 Saturation %Calculated-POC 99.9 5 (92-96); PCO2 - POC 36 mmHg (35-45); PO2 - POC 266 mmHg (80-100); POC Comment CPB; Potassium - POC 3.4 mmol/L (3.6-5.0); Sodium - POC 138 mmol/L (135-145)
[2024-08-24 11:35] LABS: ACT+ - POC 545 Seconds (82-134)
[2024-08-24 11:56] LABS: B.E. - POC 3.5 mmol/L; Glucose - POC 134 mg/dl (70-99); HCO3 - POC 28 mmol/L (21-29); Hematocrit - POC 28 % PCV (37-47); Hemodilution- POC Yes; Hemoglobin Calculated - POC 9.5; Ionized Calcium - POC 1.06 mmol/L (1.12-1.27); O2 Saturation %Calculated-POC 99.9 5 (92-96); PCO2 - POC 43 mmHg (35-45); PO2 - POC 308 mmHg (80-100); POC Comment CPB; Potassium - POC 3.4 mmol/L (3.6-5.0); Sodium - POC 139 mmol/L (135-145); pH - POC 7.43 (7.35-7.45)
--- NOTE | 2024-08-24 11:58 | CM ---
pt in OR today, cm to follow
[2024-08-24 12:11] LABS: ACT+ - POC 467 Seconds (82-134)
[2024-08-24 12:37] LABS: B.E. - POC -1.3 mmol/L; Glucose - POC 98 mg/dl (70-99); HCO3 - POC 25 mmol/L (21-29); Hematocrit - POC 28 % PCV (37-47); Hemodilution- POC Yes; Hemoglobin Calculated - POC 9.4; Ionized Calcium - POC 0.96 mmol/L (1.12-1.27); O2 Saturation %Calculated-POC 99.9 5 (92-96); PCO2 - POC 46 mmHg (35-45); PO2 - POC 273 mmHg (80-100); POC Comment REWARM; Potassium - POC 4.1 mmol/L (3.6-5.0); Sodium - POC 139 mmol/L (135-145); pH - POC 7.34 (7.35-7.45)
[2024-08-24 12:44] LABS: ACT+ - POC 112 Seconds (82-134)
[2024-08-24 12:57] LABS: ACT+ - POC 104 Seconds (82-134)
[2024-08-24 13:11] LABS: B.E. - POC 0.9 mmol/L; Glucose - POC 111 mg/dl (70-99); HCO3 - POC 25 mmol/L (21-29); Hematocrit - POC 27 % PCV (37-47); Hemodilution- POC Yes; Hemoglobin Calculated - POC 9.1; Ionized Calcium - POC 1.28 mmol/L (1.12-1.27); PCO2 - POC 36 mmHg (35-45); PO2 - POC 597 mmHg (80-100); POC Comment POST; Potassium - POC 3.2 mmol/L (3.6-5.0); Sodium - POC 139 mmol/L (135-145); pH - POC 7.45 (7.35-7.45)
--- NOTE | 2024-08-24 13:28 | W.PN.CT.SURG ---
CT Surgery Operative Note
-
CARDIAC SURGERY OPERATIVE REPORT
Preoperative Diagnosis: Acute systolic and diastolic heart failure with mixed pathology aortic valve stenosis and insufficiency as well as severe mitral valve insufficiency
Postoperative Diagnosis: Same plus single-vessel coronary artery disease
Procedure(s) Performed:
1. Standard sternotomy with aortic and bicaval cannulation
2. CABG x 2 [SHIRLEY to LAD, aorta to reverse saphenous vein graft to diagonal]
3. Radical mitral valve repair [32 mm band annuloplasty, 2 pairs of Aurora-Misael cords to the P1 flail segment, cleft closure between P1 and P2 and P2 and P3, free margin remodeling]
4. Aortic valve replacement [25 mm bioprosthesis]
5. Tricuspid valve repair [28 mm band angioplasty]
6. Left atrial appendage exclusion [35 mm clip]
7. Placement of temporary atrial ventricular pacing wires
8. Transesophageal echocardiography
9. Endoscopic harvest of the right lower extremity for vein
10. Evacuation of bilateral pleural effusions
Date of Surgery: 08/24/2024
Comorbidities:
1. Acute systolic and diastolic heart failure
2. Acute NSTEMI, single-vessel coronary artery disease
3. Takotsubo syndrome
4. 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
5. Moderately severe aortic valve insufficiency with stenosis and sclerosis
6. UTI
7. Hiatal hernia
8. Splenic artery aneurysm
9. Diverticulosis
10. GERD
11. Depression/anxiety
Attending Surgeon: Zak Gipson MD, MS
Assistants: Dilcia Menendez PA-C (present and necessary to state tested nursing assistant, retraction, suction, exposure, suture management, and wound closure under my direction)
Anesthesiology: Darwin Portillo MD and Patti Rodriguez CRNA
Scrub and Circulating RNs: Anitha Alexis, RN, Lucie Carrington RN
Correspondence School Teacher: Samantha Mo CCP
Anesthesia: GETA
EBL: per perfusion records
Products: 2 prbcs, 2 plts, 2 ffp in CVICU + Cell Saver (250cc)
CPB Time: 175 minutes
Aortic Cross Clamp Time: 145 minutes
Indication(s) for Procedures: This is an 79-year-old female who presented to the hospital with heart failure symptoms as well as ruled in for an NSTEMI, she was found to have an EF of approximate 45 to 50% with some areas of hypokinesis. She also
had significant aortic valve disease as well as mitral valve disease. Given the complexity of her pathology, she was offered surgical intervention in the form of triple valve surgery with concomitant CABG and left atrial appendage ligation.
Thorough discussion with her family as well as the patient with overall group consensus to pursue operative intervention.
Aortic Valve Description: Heavily disease mostly at the base and free margin the leaflet, the left coronary cusp was completely retracted and frozen and not coapting with the other 2. Annulus was relatively free of any significant disease. The
left and right coronary arteries were in the normal anatomic position.
Mitral Valve Description: Thickened anterior and posterior leaflet with a large prolapse of the P1 and P2 segments with flail resulting in multiple torn cords at the P1 scallop. She also had a moderate degree of mitral annular calcification and
asymmetrical annular dilatation.
Tricuspid Valve Description: Dilated annulus resulting in functional mitral valve insufficiency.
Findings: Her left ventricular ejection fraction preoperatively was approximately 45 to 50% with some regions of regional wall motion abnormalities mostly at the apex and septal wall. Following surgery her EF remained the same at 45% with continued
septal and apical wall motion abnormalities. However overall cardiac function appeared to be acceptable. Aortic valve was disease most at the base and free margin resulting in moderately severe aortic valve insufficiency as well as some degree of
stenosis. The mitral valve was very diseased resulting in myxomatous degeneration and multiple torn cords at the P1 scallop as well as prolapse of the P1 and P2 segments and annular dilatation. Tricuspid valve was functionally insufficient.
Coronary artery bypass grafting was performed x 2 using an in situ SHIRLEY to LAD and verified to have excellent visual flow in the LAD anterior, septal and apical region visually. The vein graft was average to marginal in quality with multiple areas
of varicosities as well a change in size and caliber. It was grafted to the diagonal vessel emanating off of region of the LAD that had 2 areas of disease. Test dosing with the graft demonstrated a mean flow of approximately 30 cc a minute at a
pressure of 80 mmHg. Her aortic valve was resected and replaced using a total of 15 nonpledgeted 2 Ethibond sutures in an inverted fashion from LVOT through annulus through sewing cuff secured into place with core knots. The mitral valve was
repaired by placing 2 pairs of Aurora-Misael cords to the anterior lateral palpated muscle heads to the P1 flail segment. I then closed the cleft between P1 and P2 as well as P2 and P3 and then plicated to free margin in order to remodel it. There was
moderate degree of mitral annular calcification however the needles were able to be passed through securely. This secured a [address] using a total of 13 nonpledgeted 2 Ethibond sutures secured with core knots. The tricuspid valve was
repaired using a total of 9 nonpledgeted 2 Ethibond sutures and were hand tied into place securing a 28 mm band. Her left atrial appendage was verified to be free of any thrombus or debris preoperatively and totally occlusive postoperatively on
color flow Doppler. After coming off of cardiopulmonary bypass, she had no residual mitral valve insufficiency, she had no systolic anterior motion of the leaflets, her mean gradient across the valve was 3 mmHg. The aortic valve had no
paravalvular insufficiency, and normal excursion of the leaflets with a mean gradient of 5 across the valve. The tricuspid valve itself had no residual insufficiency. She was anemic on cardiopulmonary bypass and required 2 units of PRBCs as well
as 1 bowl of Cell Saver blood. Additional platelets were given as well as FFP as she appeared to be coagulopathic. Cardiac index significantly improved to above 3 on low-dose epinephrine and milrinone drips. She regained sinus rhythm after
removal of the cross-clamp.
Specimen(s): Aortic valve leaflets.
Prosthesis:
1. 35mm GUILHERME Clip, SN [id number]
2. 25mm CHRISTY Inspiris Resilia AVR, SN [id number]
3. 32mm CHRISTY PhysioFlex Band, SN [id number]
4. 28mm Tri-Ad TV Repair Band, [id number]
5. 2 pairs of CV4 Goretex Neochords
6. Multiple 5-0 prolenes
Description of Procedure: The patient was taken to the operating room. Their identity and procedure to be performed were verified and they were positioned supine on the operating table. Induction via general anesthesia with endotracheal intubation
was performed and central venous access and arterial monitoring were inserted. A preoperative transesophageal echocardiogram was performed to assess cardiac function and valvular function. The patient was then prepped and draped from chin to feet in
a sterile fashion. A preoperative time-out was performed with all members of the team present. A midline chest incision was performed along with median sternotomy. A Rultract retractor was placed in order to elevate the left hemithorax. The left
internal mammary artery was harvested in a skeletonized fashion after giving 5000 units of heparin. Simultaneous endoscopic harvesting of the right lower extremity for a reverse saphenous vein graft was done. Next the Rultract was and exchanged
for median sternotomy retractor. The innominate vein was isolated. Full heparinization was given (a total of 50,000 units). We created a pericardial well. The aortic cannulation site was chosen where it was soft, pliable, and free of calcium.
Cannulation was performed with an arterial cannula in the ascending aorta, angled metal tip cannular in the superior vena cava and straight bendable cannula in the inferior vena cava. The arterial cannula line had an appropriate bounce and
correlating pressures. The ACT was confirmed to be over 400 and retrograde autologous priming was performed before commencing cardiopulmonary bypass. The pulmonary artery was away from the aorta to facilitate a clamp site. Sondergaard�s
groove was developed after creating the oblique sinus. A retrograde coronary sinus catheter was placed via the right atrium in order to provide retrograde cardioplegia. The aortic cross-clamp was placed after decreasing the flow on the bypass and
mean arterial pressure. Given the severity of her aortic valve insufficiency, I began by performing an aortotomy while giving simultaneous retrograde cardioplegia. Stay sutures were placed on the aorta and cardioplegia was reviewed emanating from
the left main ostium. Once a total of 500 cc was given retrograde, I gave an additional 300 cc down the right coronary artery antegrade. This was followed by an additional 200 cc down the left main. A total of 1.0L initial dose of antegrade
Del-Nido cardioplegia solution was given and planned for re-dosing every 75 minutes as necessary. There was rapid electro-mechanical arrest of the heart at 500 cc of cardioplegia. Cold slush was placed into a lap on the RV and we systemically cooled
to 32 to degrees centigrade.
Carbon dioxide was used to flood the field. The aortotomy was then extended towards the pulmonary artery and down towards the noncoronary sinus. The location of both left and right coronary vessels were visualized in the root.The leaflets were
excised and sent for pathological assessment. The annulus was debrided of any calcium being mindful of the annulus and membranous septum. The heart was mobilized medially and the left atrial appendage was sized and clipped accordingly. I then
exposed the diagonal vessel and prepared the coronary artery target using a [place] blade and made a small coronary arteriotomy enlarging with Davies scissors. End-to-side anastomosis was created 7-0 Prolene in a running fashion with the vein graft.
Test dosing antegrade down the vein graft demonstrated excellent hemostasis and acceptable flow. Next the left internal mammary artery was retrieved from the left hemithorax. The LAD was prepared in a similar fashion. An end-to-side anastomosis
was created with 7-0 Prolene in a running fashion. Removal of the bulldog clamp yielded excellent visual flow in the LAD territory with significant pinking up of the heart.
Next, the mitral valve was accessed via the left atrium followed by valve analysis. The mitral valve was repaired as described above. The left ventricular vent was repositioned across the mitral valve into the left ventricular and the left atrium
was closed with a 3-0 prolene but not tied.
I turned my attention back toward the root. A total of 15 Non-pledgeted 2-0 ethibond inverted annular sutures were placed [id number] circumferentially. These were brought through the sewing cuff of the prosthetic valve which as then parachuted
into place. The left and right coronary ostia were visualized and were unobstructed by the valve. A Cor-Knot device was used to secure the annular sutures. The valve was inspected and was well seated. The aortotomy was approximated with 4-0 prolene
in two layers.
While the heart was still arrested, I opened the right atrium longitudinally at the site of the retrograde coronary sinus catheter. Annular sutures were placed starting at the mid-portion of the septal leaflet avoiding the AV node and working
counter-clockwise toward the anteroseptal leaflet commisure. The tricuspid valve was repaired as described above and the swan was manually replaced into the RVOT. At this point with the SVC and IVC isolated, the clamp was removed after removing the
patient into a Trendelenburg position for de-airing. As the heart was reperfusing the RA suture line was closed in two layers with 5-0 prolene in a running fashion.
De-airing maneuvers were performed and temporary atrial and ventricular pacing wires were placed at the SVC/RA junction and base of the right ventricle, respectively. The patient was placed in a Trendelenburg position and flows on bypass were
lowered. The aortic cross clamp was removed and flows were slowly brought back up. The left atrial suture line was hemostatic. Transesophageal echocardiography revealed no evidence of systolic anterior motion and ventricular function was normal.
The AV prosthesis was well seated without PVL or AI. Once de-airing was satisfactory the left ventricular and root vents were removed. After verifying acceptable parameters, we initiated weaning from cardiopulmonary bypass. Once we were off
cardiopulmonary bypass, the venous cannulas was clamped and removed sequentially. A test dose of protamine was administered and the patient was monitored for any adverse reaction before resuming protamine. Once half of the protamine dose was
delivered, pump suckers were turned off and the systolic blood pressure was lowered for aortic decannulation. The aortic cannula was removed and purse strings were tied down. All cannulation sites were oversewn with a 4-0 prolene. The left atrial
suture line was inspected and hemostasis was confirmed. Mediastinal hemostasis was obtained. Two #24 Prince drains were placed within the pericardium as well as 2 x 19 [place] Prince drains into the left and right hemithorax. The sternum was
approximated with 4 #7 single and 3 #8 double stainless steel wires. Fascia was approximated with #1 vicryl suture. The subcutaneous, dermis and epidermis were closed in layers in a running fashion. The skin wound was cleansed and dressed.
All instrument, sponge, and needle counts were confirmed to be correct x 2 at the end of the operation. The patient was transferred to the cardiac intensive care unit in critical but stable condition.
I, Dr. Zak Gipson, was present, scrubbed for, and performed all critical elements of this procedure.
Zak Gipson MD, MS
Cardiothoracic Surgeon
[facility]
This dictation was created using the vWise dictation system. Please excuse any grammatical, typographical, or 'sound alike' errors
[2024-08-24 13:45] LABS: Glucose - Point of Care 147 mg/dl (70-99)
--- NOTE | 2024-08-24 13:55 | CON.INTV ---
Consultation
Consultation Request
Date/Time Consultation Requested: 08/24/2024 - 1323
Date/Time Consultation Performed: 08/24/2024 - 1347
Requesting Provider: JARED Mora
Performing Provider: Remy Brandt MD
Reason for Consultation: s/p CABG x2 + MV-repair, AVR (tissue) and TV-repair
Medical History
-
Chief Complaint: SOB + shoulder pain
History of Present Illness:
79-year-old female non-smoker with a past medical history of GERD, CAD with history of KS, anxiety/depression and valvular heart disease who presented on 08/19/2024 with 3-4 weeks of intermittent shortness of breath. She also had chest pain which
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 Initially her troponin was elevated at 3.31 with an elevated proBNP of 12,500 with COVID antigen negative. Initial EKG showed NSR with occasional lateral PVCs. She was initially treated for an NSTEMI + acute
decompensated heart failure 40mg IV lasix, with aspirin, nitroglycerin ointment, and started on heparin drip, and admitted to the IVU with cardiology consulted. An echo performed on 08/20/2024 showed stage III diastolic dysfunction with preserved
LVEF at 50-55%, with LAD territory wall motion abnormality and severe MR with an anteriorly-directed jet likely from torn chordae with a prolapse/flail posterior leaflet, severe AI, and mild pulmonary hypertension with PASP 40-45 mmHg assuming an
RAP of 8 mmHg. Patient was brought to a left heart cath on 08/20/2024 showing single-vessel CAD with hazy 80% stenosis in the proximal LAD with elevated LVEDP at 22 mmHg. Cardiothoracic surgery was consulted. KANCHAN performed on 08/22/2024 showed
mildly reduced LVEF at 45-50% with severe MR with partial flail of the P1 scallop with moderate aortic regurgitation. Cardiothoracic surgery with valve replacement and surgical bypass was recommended. Today she underwent CABG x 2 with radical
mitral valve repair, bioprosthetic aortic valve replacement, tricuspid valve repair and left atrial appendage exclusion with a 35mm clip. There were no immediate complications, and patient was transferred to the CVICU postoperatively with
fur puller services consulted for additional management/recommendations.
When I saw the patient, she was in bed, intubated on SIMV at 16/450/40%/5 with PIP: 22 cmH2O, VTe 468 mL and breathing at 16 breaths/min. Heart rate 89, BP via right radial A-line 112/58, BP via NIBP: 159, PAP: 45/24, CVP: 15 mmHg. SpO2: 99%. She
has mediastinal chest tubes x 2 + left/right pleural chest tubes. She is currently on epinephrine at 1 mcg/min, Levophed at 2 mcg/min, milrinone at 0.2 mcg/kg/min, insulin at 3.5 units/hr and currently on Precedex at 0.5mcg/kg/hr. She was in no
acute distress.
PMHx: GERD, CAD with history of KS, anxiety/depression, valvular heart disease with MR + AI
PSHx: Right rotator cuff surgery, hernia repair
Past Medical History
Past Medical History: Other (Above as per HPI)
Past Surgical History: Other (Above as per HPI)
Social History
Tobacco: Non-smoker (Although secondhand smoke exposure from )
Alcohol: None
Drug: None
Personal:
Living: With Family
Family History
Family History: Other (Mother: CHF/cardiomyopathy)
Allergies / Home Medications
Allergies
Allergy/AdvReac Type Severity Reaction Status Date / Time
No Known Allergies Allergy Verified 08/19/24 03:05
Home Medications
�Medication �Instructions �Recorded �Confirmed �Last Taken �Type
lamotrigine 100 mg tablet 200 mg PO BID Mental Health/Anxiety 11/07/12 08/19/24 08/19/24 History
lorazepam 1 mg tablet 1 mg PO TIDPRN PRN anxiety 05/27/15 08/19/24 08/19/24 History
omeprazole GI 08/19/24 Unknown History
Review of Systems
-
Unable to Obtain full review of systems at this time due to: Patient Intubation
Vitals / Labs / Diagnostic Testing
Vital Signs
Temp Pulse Resp BP Pulse Ox
96.1 F L 94 16 100/59 98
08/24/24 14:00 08/24/24 14:05 08/24/24 14:00 08/24/24 14:04 08/24/24 14:04
Lab Data
08/24/24 13:45
Laboratory Results
08/23/24 08/23/24 08/24/24
17:50 23:00 13:45
PT 19.6 H
INR 1.68
APTT 89.0 H 84.8 H 42.7 H
pH 7.41
pCO2 38 H
pO2 160 H
HCO3 24.1
O2 Delivery Level
Microbiology
08/21/24 21:21 Urine Urine Culture - Final
No Significant Growth
Diagnostic Testing:
Physical Exam
-
HEENT: Normocephalic, Anicteric and Other (ETT in place)
Cardiovascular: S1/S2 and Peripheral Edema (negative)
Respiratory: Wheeze (negative), Rales (negative), Rhonchi (negative), Non-Labored Respirations, Other (Mechanical breath sounds heard bilaterally) and Other (Chest tubes: Mediastinal chest tubes x 2 + left/right pleural chest tubes)
GI: Soft, Non Distended, Non Tender and Normal Bowel Sounds
Neurology: Tremors (negative) and Other (Sedated)
Skin: Warm and Dry
General: Respiratory Distress (negative), Comfortable, Fever (negative), Chills (negative) and Sweats (negative)
Assessment
-
Assessment: 79-year-old female non-smoker with a PMHx of GERD, CAD with history of KS, anxiety/depression and valvular heart disease who presented on 08/19/2024 with 3-4 weeks of intermittent shortness of breath + chest pain. Initial troponin was
3.31 with an elevated proBNP of 12,500. Initial EKG showed NSR with occasional lateral PVCs. She was admitted to the IVU and treated for ACS + acute decompensated heart failure. Echo showed stage III diastolic dysfunction with preserved LVEF, LAD
territory WMA, with severe MR and severe AI. LHC performed on 08/20/2024 showed single-vessel CAD with 80% stenosis in the proximal LAD and elevated LVEDP at [address] surgery consulted and on 08/24/2024 she underwent CABG x 2 with radical mitral
valve repair, bioprosthetic AVR + TV repair with GUILHERME-exclusion with a 35mm clip. Patient transferred to the CVICU postoperatively with fur puller services consulted for additional management/recommendations.
Chronic conditions [employer]: GERD, CAD with history of KS, anxiety/depression, valvular heart disease with MR + AI
Impression:
#CAD c/b NSTEMI s/p CABG x 2 (POD #0)
#Severe MR with prolapse/flail P1 segment, severe AI + moderate TR with dilated annulus s/p radical MV repair, bioprosthetic AVR + TV repair with GUILHERME�exclusion (POD #0)
#Acute decompensated heart failure/acute HFmrEF with diastolic heart failure
#Acute anemia
#Acute thrombocytopenia
#Hypoglycemia
#History of anxiety/depression
#GERD
Plan:
Ventilator settings reviewed
FiO2 will be weaned to maintain SpO2 >90-94%
Minute ventilation will be adjusted
Arterial blood gases will be monitored
Spontaneous breathing trial will be attempted with hopeful extubation after anesthesia/sedation wear off
prn nebulized bronchodilators
Pulmonary artery catheter parameters will be followed
Pressors/antihypertensive/inotropes/diuretics will be provided as needed
Maintain MAP>65
Replete electrolytes with K>4, Mg>2
Monitor volume status and diurese once HDN and vasopressor requirements improve, trending I/O, daily weight, sCr and sNa; keep net negative as tolerated
Monitor chest tube output (mediastinal chest tubes x 2+ left/right pleural chest tubes)
Monitor hemoglobin
Monitor platelet count and coags
Transfuse blood products as needed to maintain Hb>7g/dL, plt>50k (given post-operative status)
CT surgery managing chest tubes
Monitor blood sugar to maintain euglycemia with goal BG 140-180
Insulin drip per protocol
Aspiration precautions
VAP prevention protocol
DVT prophylaxis
Early nutrition
Early mobilization
Critical care statement: A total of 46 minutes of critical care time was provided for this patient today. This includes management of ventilator, spontaneous breathing trial, arterial blood gases, pressors, of unstable vital signs, evaluation of the
patient at bedside, reviewing the patient's pertinent medical records including radiographs, microbiology, laboratory evaluations, and discussion with primary team and critical care nursing.
Data:
Transesophageal echocardiogram 08/24/2024): Intra-operative
Low-normal left ventricular systolic function with LVEF of 50-55%. The apical
anterior and anteroseptal herrera are hypokinetic.
Normal right ventricular systolic function.
Severe mitral regurgitation with prolapse/flail P1 segment.
Severe aortic regurgitation with calcified, restricted leaflets.
Moderate tricuspid regurgitation with dilated annulus.
Normal left atrial appendage.
Grade III atheromatous disease of the aortic arch.
[2024-08-24 13:57] LABS: B.E. -0.4 mmol/L; HCO3 24.1 mmol/L (21-28); Ionized Calcium 1.07 mMOL/L (1.15-1.33); PCO2 38 mmHg (32-35); PO2 160 mmHg (83-108); Potassium 2.9 mMOL/L (3.5-5.1); Sodium 136 mMOL/L (136-145); pH 7.41 (7.35-7.45)
[2024-08-24 14:01] LABS: Mixed Venous O2 Saturation 77.1 %
[2024-08-24 14:04] LABS: Hematocrit 26.6 % (37.0-47.0); Hemoglobin 9.2 g/dL (12.0-16.0); Platelet Count 149 10^3/uL (130-400)
[2024-08-24] MEDS: KCL 50 IV ×2 (14:05→15:15)
[2024-08-24 14:07] LABS: APTT 42.7 Sec (23.4-35.0); INR 1.68; PT 19.6 Sec (11.4-14.6)
[2024-08-24 14:17] LABS: Blood Urea Nitrogen 14 mg/dl (7-17); Estimated Creatinine Clearance 58 ml/min; Glucose 141 mg/dl (70-99); Magnesium 3.4 mg/dl (1.6-2.3)
--- NOTE | 2024-08-24 14:22 | PTCARENOTE ---
Pt received from CVOR at 1340; Sedated and intubated; SR w/ frequent PVC's on monitor; VSS; Epicardial AV-wires present with temporary pacermaker settings VVI 30/10.0/2.0 - Atrial pacing settings turned off due to inappropriate pacing; Friction rub
present; +2 DP and radial pulses present; Lungs diminished at bases; ETT size 8 positioned and secured at 24 cm right lip; Ventilator settings SIMV 450/16/5/5 FiO2 40%; CTx4 to -20 cm wall suction draining bloody drainage - no air leak, tidaling, or
crepitus noted; Hypoactive BS; Quinones catheter in place draining clear, yellow urine; Sternal incision site glued, approximated and CDI, Right leg wrapped in STEVENSON wrap and CDI; A-line in right radial artery, Marino floated to 40 cm in right IJ Cordis -
all lines zeroed and level; PIVx2; Levo/insulin/precedex/epi/milrinone infusing - see nursing flowsheets for further details; Potassium repleted x2. iCal repleted x1; FFP given x2 given and no transfusion reactions noted; See nursing documentation
for further details.
CI: 2.68
CO: 4.46
SVR: 1,129
[2024-08-24 14:47] LABS: Glucose - Point of Care 157 mg/dl (70-99)
[2024-08-24] MEDS: NOVOLOG FLEXPEN SC ×2 (15:08→15:32)
[2024-08-24] MEDS: LAMICTAL PO (15:08)
[2024-08-24] MEDS: ANCEF 10 IV ×2 (15:08)
[2024-08-24] MEDS: NSS 500 IV (15:09)
[2024-08-24] MEDS: CALCIUM CHLORIDE 10% SYRINGE 50 ML IV (15:10)
[2024-08-24] MEDS: CALCIUM CHLORIDE 10% SYRINGE 50 MG IV (15:10)
[2024-08-24] MEDS: NEURONTIN PO (15:13)
[2024-08-24] MEDS: PACERONE PO (15:13)
[2024-08-24] MEDS: TYLENOL PO ×2 (15:13→21:56)
[2024-08-24] MEDS: LASIX IV (15:15)
[2024-08-24] MEDS: KCL PO (15:15)
[2024-08-24] MEDS: LOW STRENGTH ASPIRIN PO (15:15)
[2024-08-24] MEDS: LIDOCAINE 4% PATCH TOPICAL (15:15)
[2024-08-24] MEDS: PROTONIX IV IV (15:16)
[2024-08-24] MEDS: NSS (PRESERVATIVE FREE) IV (15:16)
[2024-08-24] MEDS: MIRALAX PO (15:16)
[2024-08-24] MEDS: SENOKOT-S PO (15:17)
--- NOTE | 2024-08-24 15:51 | PTCARENOTE ---
RT in room and pt placed on CPAP trial. ABG's due at 1620
[2024-08-24 15:59] LABS: Glucose - Point of Care 111 mg/dl (70-99)
--- NOTE | 2024-08-24 16:03 | W.PN.CD ---
Addendum entered and electronically signed by Robinson Stephenson MD 08/24/24 17:41:
Patient seen and examined in collaboration with CONSUMER AFFAIRS MANAGER; agree with below.
-Patient underwent CABG x 2 /bioprosthetic aortic valve replacement/mitral valve repair/tricuspid valve repair today.
-Now extubated; currently on low-dose milrinone.
-Continue site monitor.
-Routine postsurgical care as directed by CT Surgery.
-Will follow.
Original Note:
Today's Communication / Plan
-
Follow telemetry
Postoperative management per CT surgery
Impression / Plan
-
BACKGROUND: 79F with history of mitral regurgitation presents to ED with SOB and chest pressure, found to have NSTEMI with cath demonstrating culprit LAD disease, and echo demonstrating severe MR and severe AR. She is being evaluated for surgical
MVR/AVR/CABG.
NSTEMI s/p CABG x 2 [SHIRLEY to LAD, aorta to reverse saphenous vein graft to diagonal]
Severe mitral regurgitation with P1 flail and severe AI S/P Radical mitral valve repair [32 mm band annuloplasty, 2 pairs of [place]-Misael cords to the P1 flail segment, cleft closure between P1 and P2 and P2 and P3, free margin remodeling]
Severe aortic regurgitation S/P Aortic valve replacement [25 mm bioprosthesis]
Tricuspid regurgitation S/P Aortic valve replacement [25 mm bioprosthesis]
-Operative notes reviewed
-Pre-LVEF 45-50% with some RWMA mostly at the apex and septal wall, post LVEF 45% with continued septal and apical wall motion abnormalities
-ASA resumption per CT surgery
-EKG sinus rhythm, single PVC, and anterior septal T wave abnormality
Coagulopathy, additional platelets and FFP were given along with 2 units of PRBC and 1 bowl of Cell Saver
Acute on chronic heart failure with mildly reduced EF
Mixed ischemic and non-ischemic cardiomyopathy
-Follow daily weight, anticipate furosemide need
-Consider SGLT2
-Trend daily weight, I/O, and BMP
-Heart failure education
Splenic artery aneurysm, seen on CT
Anxiety and bipolar, on Lamictal
Subjective:
Operative notes reviewed.
TTE 08/20/24
Mildly dilated LV with low normal systolic function.
LVEF 50-55% by visual estimation.
LAD territory wall motion abnormality.
Stage III diastolic dysfunction suggestive of restrictive filling pattern and
increased filling pressures.
Normal right ventricular size and function.
Severe mitral regurgitation with anteriorly directed jet likely from torn
chordae resulting in prolapse/flail of the posterior leaflet of the mitral
valve.
Severe aortic regurgitation.
Estimated pulmonary artery pressure of 40-45 mmHg. Assuming a right atrial
pressure of 8 mmHg.
No prior study for comparison.
RHC/LHC 08/20/24
HEMODYNAMIC DATA
LV 93/7 (EDP 22) mmHg
AO 91/50 (mean 68) mmHg
CORONARY ANGIOGRAPHY
Dominance: right
LM: large and normal
LAD: large vessel giving rise to a large ramus/D1, moderate caliber D2, and wrapping around the apex. There is a hazy 80% stenosis in the proximal LAD just before D2 and a 50% stenosis after D2.
LCx: gives rise to a single moderate caliber branching marginal. There are mild luminal irregularities.
RCA: large vessel giving rise to a moderate-caliber RPDA and large RPL system. Trivial luminal irregularities.
Physical Exam
Vital Signs/Labs
Vital Signs
Temp Pulse Resp BP Pulse Ox
98.5 F 86 19 84/55 99
08/24/24 16:00 08/24/24 16:00 08/24/24 16:00 08/24/24 16:00 08/24/24 16:00
08/23/24 08/24/24 08/25/24
06:59 06:59 06:59
Actual Weight 58.3 kg
09/27/24 13:45
PT 19.6 Sec (11.4-14.6) H 08/24/24 13:45
INR 1.68 08/24/24 13:45
APTT 42.7 Sec (23.4-35.0) H 08/24/24 13:45
Magnesium 3.4 mg/dl (1.6-2.3) H 08/24/24 13:45
Triglycerides 50 mg/dl (10-149) 08/20/24 05:59
LDL Cholesterol, Calc 72 mg/dl 08/20/24 05:59
VLDL Cholesterol, Calc 10 mg/dl (0-30) 08/20/24 05:59
HDL Cholesterol 61 mg/dl 08/20/24 05:59
08/19/24
01:22
Ozt-I-Nmhzhvarulz Pept [id number]
Physical Exam
Constitutional: No acute distress and Comfortable
EENT: Anicteric and Moist mucous membranes
Cardiovascular: Rhythm & rate is regular, Pedal edema is absent, S1S2 is normal and Rub present
Respiratory: Respiratory effort normal and Lungs clear to auscul.
GI: Soft, Distention absent, Flat and Non tender
Neuro/Psych: Other (sedated)
Other: Skin (warm and dry without edema)
Data Reviewed
-
Date of Service: August 24, 2024
Labs: Labs Reviewed by me
Old Records: Reviewed
[2024-08-24] MEDS: LR 250 ML IV (16:18)
--- NOTE | 2024-08-24 16:23 | PTCARENOTE ---
CI 1.81, SVR 1,594; CVPA Boogie notified and aware - MD Gipson at bedside to evaluate. LR bolus 250 ml ordered and given
[2024-08-24 16:30] LABS: B.E. 1.5 mmol/L; HCO3 25.9 mmol/L (21-28); PCO2 39 mmHg (32-35); PO2 141 mmHg (83-108); pH 7.43 (7.35-7.45)
--- NOTE | 2024-08-24 16:44 | RESPNOTE ---
Extubated to 6 liter NC at this time without complications. SAT 100% HR 88
--- NOTE | 2024-08-24 16:50 | PTCARENOTE ---
ABG's reviewed; RT at bedside; Pt extubated at 1644; Pt placed on 6L NC. CI 1.97, SVR 1,418 after LR bolus. MVO2 sent and awaiting results
[2024-08-24 16:54] LABS: Mixed Venous O2 Saturation 58.7 %
[2024-08-24 17:02] LABS: Glucose - Point of Care 86 mg/dl (70-99)
[2024-08-24] MEDS: LIPITOR PO (17:27)
[2024-08-24 17:34] LABS: Hemoglobin 8.6 g/dL (12.0-16.0); Platelet Count 150 10^3/uL (130-400)
[2024-08-24] MEDS: OFIRMEV 100 IV (17:36)
[2024-08-24 17:44] LABS: Ionized Calcium 1.33 mMOL/L (1.15-1.33)
[2024-08-24 17:52] LABS: Carbon Dioxide 29 mmol/L (22-30); Chloride 104 mmol/L (98-107); Potassium 4.6 mmol/L (3.5-5.1); Sodium 139 mmol/L (135-145)
[2024-08-24 18:04] LABS: Glucose - Point of Care 123 mg/dl (70-99)
[2024-08-24] MEDS: ANCEF 5 IV (18:15)
[2024-08-24] MEDS: LOW STRENGTH ASPIRIN 81 MG PO (18:15)
--- NOTE | 2024-08-24 18:34 | PTCARENOTE ---
CI 1.97/ SVR 1,492 - CVPA Marge notified and aware; Milrinone infusion maintained at 0.25 mcg/kg/min as per CV TIFFANIE orders. IV Ofirmev given at 1735 for 5/10 mid back to left shoulder pressure pain - patient now resting comfortably in bed.
[2024-08-24 20:09] LABS: Glucose - Point of Care 103 mg/dl (70-99)
[2024-08-24] MEDS: LAMICTAL 200 MG PO (20:12)
[2024-08-24] MEDS: SENOKOT-S 1 TABLET PO (20:12)
[2024-08-24 20:37] LABS: Hematocrit 23.6 % (37.0-47.0); Hemoglobin 8.2 g/dL (12.0-16.0); Mean Corp Hgb Conc. 34.7 g/dL (33.0-37.0); Mean Corpuscular Hgb 29.3 pg (27.0-31.0); Mean Corpuscular Volume 84.3 fL (81.0-99.0); Mean Platelet Volume 9.9 fL (7.4-10.4); Platelet Count 169 10^3/uL (130-400); Red Cell Dist. Width 13.2 % (11.5-14.5); White Blood Cell Count 11.9 10^3/uL (4.8-10.8)
[2024-08-24 20:53] LABS: INR 2.45; PT 26.5 Sec (11.4-14.6)
[2024-08-24] MEDS: FLEXERIL 5 MG PO (20:53)
[2024-08-24 20:54] LABS: APTT 49.7 Sec (23.4-35.0)
[2024-08-24 21:09] LABS: Blood Urea Nitrogen 16 mg/dl (7-17); Calcium 9.2 mg/dl (8.4-10.2); Carbon Dioxide 28 mmol/L (22-30); Chloride 102 mmol/L (98-107); Estimated Creatinine Clearance 51 ml/min; Glucose 99 mg/dl (70-99); Magnesium 2.7 mg/dl (1.6-2.3); Potassium 4.6 mmol/L (3.5-5.1); Sodium 138 mmol/L (135-145); eGFR > 60.00
--- NOTE | 2024-08-24 21:30 | PTCARENOTE ---
Assumed care of pt from dayshift RN. Walking rounds completed. Pt AAOx3. Following commands appropriately. Pt SR w/ occasional PVC's on the tele monitor. HR 70s. +rub. Temporary epicardial A/V wires intact and set to VVI 30/10/2. BP 90-100s/50s.
Levo infusing per protocol. CVP ~10. PAP 30s/teens. CI: 1.91, CO: 3.17, SVR: 1463. Palpable pulses throughout. Trace LE edema. Pt on 4 L NC. POX 99-100%. Lung sounds diminished at the bases. Mediastinal CTx2 and L/R pleural CT to -20 suction, no
air-leak noted at this time, and output appropriate. Abdomen soft. Hypoactive BS. No nausea. Quinones catheter CDI and draining yellow urine. All surgical sites stable. Right IJ cordis w/ swan @40cm CDI. Right radial a-line CDI. Right AC PIV CDI. All
lines leveled, zeroed, and flushed. Glycemic protocol followed. Milrinone infusing as ordered. Ordered labs drawn and sent. See worklist for full nursing assessment and interventions. Pt tolerating ice chips and sips of water. Call maurice within
reach.
[2024-08-24] MEDS: PACERONE 200 MG PO (21:55)
[2024-08-24] MEDS: NEURONTIN 100 MG PO (21:55)
[2024-08-24 22:16] LABS: Glucose - Point of Care 119 mg/dl (70-99)
[2024-08-25] VITALS (29 sets, daily range): BP systolic 84–128; BP diastolic 49–73; PULSE 69; O2SAT 93–94; BMI 22.9
[2024-08-25 00:09] LABS: Glucose - Point of Care 124 mg/dl (70-99)
--- NOTE | 2024-08-25 00:41 | PTCARENOTE ---
Pt reassessed. Pt remains SR w/ occasional PVS on the tele monitor. HR 70s. Temporary epicardial A/V wires intact. Settings unchanged. BP 90-110s/60s. Levo infusing as ordered. PAPs 30s/teens. CVP 10-12. CO: 2.96, CI: 1.78, SVR: 1621. Pt on 4 L NC.
POX 99-100%. CT assessment unchanged from previous. Quinones catheter intact and draining yellow urine. Quinones care completed. All surgical sites stable. Right IJ cordis w/ swan CDI. Right radial a-line CDI. All lines leveled, zeroed, and flushed.
Milrinone infusing as ordered. Glycemic protocol followed. 2 units FFP infused w/ issue. 1 unit PRBC's now infusing. See worklist for full VS / I&Os. Call maurice within reach.
[2024-08-25] MEDS: LEVOPHED 250 IV (01:40)
--- NOTE | 2024-08-25 01:45 | PTCARENOTE ---
1 unit PRBC infused w/o issue. VSS.
[2024-08-25 02:20] LABS: Glucose - Point of Care 85 mg/dl (70-99)
--- NOTE | 2024-08-25 04:07 | W.PN.CT ---
Today's Communication / Plan
-
Plan:
-No major issues overnight. Hemodynamically and neurologically intact
-Successfully extubated yesterday 08/24/24 @ 1644
-On Primacor @ 0.25 mcg/kg/min, Levophed weaned off overnight, and on insulin gtt per protocol
-Last CI 1.8, MVO2 58.5%, u/o since OR 715 mL
-Monitor chest tube output: 2meds 115/345, R/L pl 30/140
-Will transfuse additional 1u PRBC for h/h 8.524.8 this AM
-Cont. current meds (ASA, will add Plavix; Amiodarone and BB currently on hold while on Primacor)
-D/C swan and a-line when able to wean off Primacor
-Transfer to [facility] phase when able to wean of Primacor, and when insulin gtt is off per protocol
-Keep schultz catheter while on Primacor to monitor I/O's
-Maintain cordis
-Maintain temporary PW
-Wean off of O2 as tolerated
-Encourage use of IS
-OOB into chair
Assessment / Plan
-
Assessment:
-S/P Standard sternotomy with aortic and bicaval cannulation/ CABG x 2 [SHIRLEY to LAD, aorta to reverse saphenous vein graft to diagonal]/Endoscopic harvest of the right lower extremity for vein/Radical mitral valve repair [32 mm band annuloplasty, 2
pairs of [place]-Misael cords to the P1 flail segment, cleft closure between P1 and P2 and P2 and P3, free margin remodeling]/Aortic valve replacement [25 mm bioprosthesis]/Tricuspid valve repair [28 mm band angioplasty]/ Left atrial appendage exclusion
[35 mm clip]/ Evacuation of bilateral pleural effusions, by Dr. Gipson, 08/24/24, pod#1
-Acute systolic and diastolic heart failure
-Acute NSTEMI (peak trop, 5.64)
-Single-vessel coronary artery disease involving the LAD
-Takotsubo syndrome
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
-Moderately severe aortic valve insufficiency with stenosis and sclerosis
-Moderate TR with dilated annulus
-LVEF 50-55% per intraop KANCHAN
-Bilateral pleural effusion
-UTI
-Hiatal hernia
-Splenic artery aneurysm
-Diverticulosis
-GERD
-Depression/anxiety
-Acute intraop/postop blood loss/Anemia (transfused 2u PRBC's)
-Acute intraop/postop thrombocytopenia (transfuse 2 {5 pk} plts)
-Acute intraop/postop coagulopathy (transfused 4u FFPs)-
-Acute postop hypovolemia with subsequent hypervolemia
-Acute postop atelectasis
Discussed patient care with: Cardiology, Nursing, Respiratory Therapy, Pharmacy and Care Team
Subjective
Procedure
-S/P Standard sternotomy with aortic and bicaval cannulation/ CABG x 2 [SHIRLEY to LAD, aorta to reverse saphenous vein graft to diagonal]/Endoscopic harvest of the right lower extremity for vein/Radical mitral valve repair [32 mm band annuloplasty, 2
pairs of [place]-Misael cords to the P1 flail segment, cleft closure between P1 and P2 and P2 and P3, free margin remodeling]/Aortic valve replacement [25 mm bioprosthesis]/Tricuspid valve repair [28 mm band angioplasty]/ Left atrial appendage exclusion
[35 mm clip]/ Evacuation of bilateral pleural effusions, by Dr. Gipson, 08/24/24
-
Date of Service: August 25, 2024
Pt c/o incisional pain, otherwise feels well
Objective Data
-
PT 26.5 Sec (11.4-14.6) H 08/24/24 20:28
INR 2.45 08/24/24 20:28
APTT 49.7 Sec (23.4-35.0) H 08/24/24 20:28
Vital Signs
Vital Signs
Temp Pulse Resp BP Pulse Ox
98.6 F 73 14 88/64 99
08/25/24 03:00 08/25/24 03:00 08/25/24 03:00 08/25/24 03:00 08/25/24 03:00
CT Intake/Output/Weight
08/24/24 08/24/24 08/25/24
06:59 18:59 06:59
Intake Total 1428.1 / 2572.3 1144.2 / 2572.3
Output Total 620 / 1055 435 / 1055
Balance 808.1 / 1517.3 709.2 / 1517.3
SaO2: 99 (2L)
Physical Exam
-
General: Awake, Oriented and AOx3
Cardiovascular: Regular rate & rhythm, No Murmurs and No Gallop
Respiratory: Decreased Breath Sounds
Sternum: Stable
Incision: Dry, Intact and Dressing Intact
Extremities: No Edema
Data Reviewed
-
Lab Results: Results Reviewed
Medications: Active Meds Reviewed
Chest X-Ray: Report Reviewed and Image Reviewed
ECG: Report Reviewed and Image Reviewed
[2024-08-25] MEDS: ANCEF 5 IV ×2 (04:11→10:43)
[2024-08-25 04:17] LABS: Glucose - Point of Care 113 mg/dl (70-99)
[2024-08-25 04:39] LABS: Mixed Venous O2 Saturation 58.5 %
[2024-08-25 05:01] LABS: Ionized Calcium 1.22 mMOL/L (1.15-1.33)
[2024-08-25 05:06] LABS: INR 1.21; PT 15.1 Sec (11.4-14.6)
[2024-08-25 05:07] LABS: Hematocrit 24.8 % (37.0-47.0); Hemoglobin 8.5 g/dL (12.0-16.0); Mean Corp Hgb Conc. 34.3 g/dL (33.0-37.0); Mean Corpuscular Hgb 28.9 pg (27.0-31.0); Mean Corpuscular Volume 84.4 fL (81.0-99.0); Mean Platelet Volume 10.5 fL (7.4-10.4); Platelet Count 146 10^3/uL (130-400); Red Blood Cell Count 2.94 10^6/uL (4.20-5.40); Red Cell Dist. Width 13.3 % (11.5-14.5); White Blood Cell Count 8.2 10^3/uL (4.8-10.8)
[2024-08-25 05:12] LABS: Blood Urea Nitrogen 17 mg/dl (7-17); Calcium 8.4 mg/dl (8.4-10.2); Carbon Dioxide 25 mmol/L (22-30); Chloride 103 mmol/L (98-107); Estimated Creatinine Clearance 51 ml/min; Glucose 109 mg/dl (70-99); Magnesium 2.4 mg/dl (1.6-2.3); Potassium 4.9 mmol/L (3.5-5.1); Sodium 140 mmol/L (135-145); eGFR > 60.00
[2024-08-25] MEDS: TYLENOL 1000 MG PO ×3 (05:36→21:24)
--- NOTE | 2024-08-25 05:57 | PTCARENOTE ---
Pt reassessed. Pt SR w/ occasional PVC's on the tele monitor. HR 70s. Temporary epicardial A/V wires intact. Settings unchanged. A-line BP 120s/60s. Cuff BP 80s/60s. Levo off. CTPA aware. CVP ~12. PAPs 40s/teens. CI: 1.81, CO: 3.01. Pt maintained on
4 L NC. POX 99-100%. CT assessment unchanged. Quinones catheter intact and draining yellow urine. No nausea. Tolerated sips of water with pills and ice chips. All surgical sites stable. [place] and a-line maintained. All lines leveled, zeroed, and
flushed. Labs drawn and sent. EKG obtained. Milrinone infusing as ordered. Glycemic protocol followed. Pt repositioned in bed. Call maurice within reach.
[2024-08-25 06:09] LABS: Glucose - Point of Care 91 mg/dl (70-99)
--- NOTE | 2024-08-25 06:32 | PTCARENOTE ---
Second unit of PRBC's ordered and infusing. Pt VSS.
[2024-08-25] MEDS: PRIMACOR 20 MG 100 IV (07:11)
[2024-08-25 08:11] LABS: Glucose - Point of Care 104 mg/dl (70-99)
[2024-08-25] MEDS: PROTONIX 40 MG PO (08:19)
[2024-08-25] MEDS: LAMICTAL 200 MG PO ×2 (08:19→21:24)
[2024-08-25] MEDS: FLEXERIL 5 MG PO (08:19)
[2024-08-25] MEDS: SENOKOT-S 1 TABLET PO ×2 (08:19→20:09)
[2024-08-25] MEDS: PLAVIX 75 MG PO (08:19)
[2024-08-25] MEDS: NEURONTIN 100 MG PO ×3 (08:19→21:24)
[2024-08-25] MEDS: MAGNESIUM OXIDE PO (08:20)
[2024-08-25] MEDS: LOW STRENGTH ASPIRIN 81 MG PO (08:20)
[2024-08-25] MEDS: LOPRESSOR PO (08:20)
[2024-08-25] MEDS: BACTROBAN 2% OINTMENT 1 APPLIC NASAL ×2 (08:20→20:09)
--- NOTE | 2024-08-25 08:30 | PTCARENOTE ---
Pt received from mine shifter RN; AAOx3, responds to spontaneous stimulation; SR w/ frequent PVC's on monitor; VSS; Epicardial AV-wires present with temporary pacermaker settings VVI 30/10.0/2.0 - Atrial pacing settings turned off due to
inappropriate pacing; Friction rub present; +2 DP and radial pulses present; Lungs diminished throughout; SpO2 94-98% on 2L NC; IS 750 ml; CTx4 to -20 cm wall suction draining bloody drainage - no air leak, tidaling, or crepitus noted; Hypoactive
BS; Quinones catheter in place draining clear, yellow urine - low urine output and CVPA Marge notified and aware; Sternal incision site glued, approximated, CDI, and ecchymotic, Right leg wrapped in STEVENSON wrap and CDI; A-line in right radial artery, Marino
floated to 40 cm in right IJ Cordis - all lines zeroed and level; PIVx1 - #18 RAC; Levo/insulin/milrinone infusing - see nursing flowsheets for further details; 1 U PRBC's given and no transfusion reactions noted; CI low - CVPA Marge notified and
MVO2 ordered to verify; PRN Flexeril given accordingly; See nursing documentation for further details.
CI: 1.73
CO: 2.87
SVR: 1,727
--- NOTE | 2024-08-25 08:34 | W.PN.INTV ---
Today's Communication / Plan
Recommendations
Up OOB as tolerated
Encourage incentive spirometer use
Daily CXR
Continue with Bumex drip and maintain net negative fluid balance as tolerated
Replete K >4, Mg >2
Keep MAP >65, SpO2 >90-94%
Wean off Cardene drip + milrinone mild trending SBP, MAP, and CO/CI and SVO2
Role Player services will continue to follow along while she remains on milrinone + Cardene drip. Once off drips and downgraded to CVICU�telemetry status, we will sign off at that time.
Assessment
-
Assessment: 79-year-old female non-smoker with a PMHx of GERD, CAD with history of PA, anxiety/depression and valvular heart disease who presented on 08/19/2024 with 3-4 weeks of intermittent shortness of breath + chest pain. Initial troponin was
3.31 with an elevated proBNP of 12,500. Initial EKG showed NSR with occasional lateral PVCs. She was admitted to the IVU and treated for ACS + acute decompensated heart failure. Echo showed stage III diastolic dysfunction with preserved LVEF, LAD
territory WMA, with severe MR and severe AI. LHC performed on 08/20/2024 showed single-vessel CAD with 80% stenosis in the proximal LAD and elevated LVEDP at [address] surgery consulted and on 08/24/2024 she underwent CABG x 2 with radical mitral
valve repair, bioprosthetic AVR + TV repair with GUILHERME-exclusion with a 35mm clip. Patient transferred to the CVICU postoperatively with [facility] letter carrier services consulted for additional management/recommendations.
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
Impression:
#CAD c/b NSTEMI s/p CABG x 2 (POD #1)
#Severe MR with prolapse/flail P1 segment, severe AI + moderate TR with dilated annulus s/p radical MV repair, bioprosthetic AVR + TV repair with GUILHERME�exclusion (POD #1)
#Acute decompensated heart failure/acute HFmrEF with diastolic heart failure
#Acute anemia
#Acute thrombocytopenia
#Hypoglycemia
#History of anxiety/depression
#GERD
Plan:
Patient was successfully extubated to nasal cannula on 08/24/2024; now currently on 2 L/min nasal cannula saturating 96%
Continue to wean down supplemental O2 flow to maintain SpO2 >90-94%
prn nebulized bronchodilators - not currently bronchospastic
Pulmonary artery catheter parameters will be followed
Pressors/antihypertensive/inotropes/diuretics will be provided as needed
Trend CO/CI and SVO2 while on milrinone gtt
Maintain MAP>65
Replete electrolytes with K>4, Mg>2
Monitor volume status and diurese with Bumex gtt; trend I/O, daily weight, sCr and sNa; keep net negative as tolerated
Monitor chest tube output (mediastinal chest tubes x 2+ left/right pleural chest tubes)
Monitor hemoglobin
Monitor platelet count and coags
Transfuse blood products as needed to maintain Hb>7g/dL, plt>50k (given post-operative status)
- She was given 2 units PRBC since midnight on 08/25/2024; otherwise she has been given a total of 4 PRBC, 4 units FFP and [address] surgery managing chest tubes
Monitor blood sugar to maintain euglycemia with goal BG 140-180
Insulin drip per protocol --> insulin drip now stopped as of today; continue insulin SQ to maintain BG goal as above
Aspiration precautions
Encourage IS 10x/hr for at least 4 hrs a day
Cardiac rehab consult
DVT prophylaxis
Early nutrition
Early mobilization
Role Player services will continue to follow along while she remains on milrinone + Cardene drip. Once off drips and downgraded to CVICU�telemetry status, we will sign off at that time.
Critical care statement: A total of 41 minutes of critical care time was provided for this patient today. This includes management of ventilator, spontaneous breathing trial, arterial blood gases, pressors, of unstable vital signs, evaluation of the
patient at bedside, reviewing the patient's pertinent medical records including radiographs, microbiology, laboratory evaluations, and discussion with primary team and critical care nursing.
Data:
Transesophageal echocardiogram 08/24/2024): Intra-operative
Low-normal left ventricular systolic function with LVEF of 50-55%. The apical
anterior and anteroseptal herrera are hypokinetic.
Normal right ventricular systolic function.
Severe mitral regurgitation with prolapse/flail P1 segment.
Severe aortic regurgitation with calcified, restricted leaflets.
Moderate tricuspid regurgitation with dilated annulus.
Normal left atrial appendage.
Grade III atheromatous disease of the aortic arch.
CXR 08/25/2024: Stable postoperative changes with interval removal of endotracheal tube; no pneumothorax. Mild retrocardiac atelectasis
Subjective Dataa
Subjective Data
Date of Service:
Date of Service: August 25, 2024
Chief Complaint: Role Player Follow Up
Subjective:
Patient was seen and evaluated today at bedside. She is very tired today. In bed, easily arousable and answering all questions appropriately. She is currently on 2 L/min nasal cannula saturating 96%, heart rate 70, BP 124/54 via A-line, PAP:
47/21, CVP: 18, BP via NIBP: 99/53. She is currently on Cardene drip at 7.5mg/hr, milrinone at 0.3 mcg/kg/min, Bumex drip at 0.5mg/hr and her insulin drip has been turned off as of this early afternoon. CO/CI: 3.48/2.1, respectively. All [address] including mediastinal chest tubes x 2+ left/right pleural chest tubes. She denies shortness of breath, chest pain, DEJESUS, abdominal pain, nausea, fevers or chills.
Review of Systems
General: Other (Negative unless mentioned above)
Objective Data
Data Reviewed
Vital Signs / I&O / Oxygen:
Vital Signs
Temp Pulse Resp BP Pulse Ox
98.3 F 71 20 110/66 96
08/25/24 10:00 08/25/24 10:00 08/25/24 10:00 08/25/24 10:00 08/25/24 10:00
Intake and Output
08/24/24 08/25/24 08/26/24
06:59 06:59 06:59
Intake Total 1332 / 1332 2680.5 / 2710.5 559.2 / 559.2
Output Total 1200 / 1245 135 / 135
Balance 1332 / 1332 1480.5 / 1465.5 424.2 / 424.2
SaO2 [CPAP/PSV] 99
SaO2 [SIMV] 100
SaO2 96
Nasal Cannula flow liters per 2
minute
Physical Exam
General: Respiratory Distress (negative), Comfortable, Chills (negative) and Sweats (negative)
HEENT: Normocephalic and Anicteric
Cardiovascular: S1-S2 and Peripheral Edema (negative)
Respiratory: Wheeze (negative), Crackles (negative), Rhonchi (negative), Non-Labored Respirations and Chest Tube (Mediastinal chest tubes x 2 + left/right pleural chest tubes)
GI: Soft, Non Distended, Non Tender and Normal Bowel Sounds
Neurology: Tremors (negative) and Other (Sleepy but easily arousable and answering all questions appropriately)
Skin: Warm, Dry, Jaundice (negative) and Rash (negative)
Labs/Micro/Reports
Lab Data
08/25/24 09:18
08/25/24 04:28
Laboratory Results
08/24/24 08/24/24 08/24/24
13:45 16:22 20:28
PT 19.6 H 26.5 H
INR 1.68 2.45
APTT 42.7 H 49.7 H
pH 7.41 7.43
pCO2 38 H 39 H
pO2 160 H 141 H
HCO3 24.1 25.9
O2 Delivery Level
08/25/24
04:28
PT 15.1 H
INR 1.21
APTT
pH
pCO2
pO2
HCO3
O2 Delivery Level
Microbiology
08/21/24 21:21 Urine Urine Culture - Final
No Significant Growth
[2024-08-25 08:49] LABS: Mixed Venous O2 Saturation 58.4 %
[2024-08-25] MEDS: NOVOLOG FLEXPEN SC (09:20)
[2024-08-25 09:34] LABS: Hematocrit 28.1 % (37.0-47.0); Hemoglobin 9.6 g/dL (12.0-16.0); Mean Corp Hgb Conc. 34.2 g/dL (33.0-37.0); Mean Corpuscular Hgb 28.9 pg (27.0-31.0); Mean Corpuscular Volume 84.6 fL (81.0-99.0); Mean Platelet Volume 10.7 fL (7.4-10.4); Platelet Count 145 10^3/uL (130-400); Red Blood Cell Count 3.32 10^6/uL (4.20-5.40); Red Cell Dist. Width 13.7 % (11.5-14.5); White Blood Cell Count 8.6 10^3/uL (4.8-10.8)
[2024-08-25] MEDS: CARDENE 200 IV ×2 (09:50→17:58)
[2024-08-25 10:00] LABS: Glucose - Point of Care 107 mg/dl (70-99)
[2024-08-25] MEDS: BUMEX 50 IV (10:12)
[2024-08-25 11:11] LABS: Mixed Venous O2 Saturation 59.9 %
[2024-08-25 11:11] LABS: Glucose - Point of Care 119 mg/dl (70-99)
[2024-08-25] MEDS: NOVOLOG FLEXPEN 4 UNITS SC (11:43)
--- NOTE | 2024-08-25 11:58 | W.PN.CD ---
Today's Communication / Plan
-
-Diuresis today with Bumex
-Wean off pressors.
-Continue milrinone drip today.
Impression / Plan
-
BACKGROUND: 79F with history of mitral regurgitation presents to ED with SOB and chest pressure, found to have NSTEMI with cath demonstrating culprit LAD disease, and echo demonstrating severe MR and severe AR. She is being evaluated for surgical
MVR/AVR/TVr/ CABG.
NSTEMI s/p CABG x 2 [SHIRLEY to LAD, aorta to reverse saphenous vein graft to diagonal]
Severe mitral regurgitation with P1 flail and severe AI S/P Radical mitral valve repair [32 mm band annuloplasty, 2 pairs of [place]-Misael cords to the P1 flail segment, cleft closure between P1 and P2 and P2 and P3, free margin remodeling]
Severe aortic regurgitation S/P Aortic valve replacement [25 mm bioprosthesis]
Tricuspid regurgitation S/P Aortic valve replacement [25 mm bioprosthesis]
-Operative notes reviewed
-Pre-LVEF 45-50% with some RWMA mostly at the apex and septal wall, post LVEF 45% with continued septal and apical wall motion abnormalities
-ASA resumption per CT surgery
-EKG sinus rhythm, single PVC, and anterior septal T wave abnormality
Extubated on 08/24/2024
On amiodarone, aspirin, Plavix,
Weaning of Levophed/milrinone
Elevated CVP noted plan for diuresis with Bumex.
Coagulopathy, additional platelets and FFP were given along with 2 units of PRBC and 1 bowl of Cell Saver
Acute on chronic heart failure with mildly reduced EF
Mixed ischemic and non-ischemic cardiomyopathy
-Follow daily weight, anticipate furosemide need
-Consider SGLT2
-Trend daily weight, I/O, and BMP
-Heart failure education
Splenic artery aneurysm, seen on CT
Anxiety and bipolar, on Lamictal
Subjective:
Operative notes reviewed.
TTE 08/20/24
Mildly dilated LV with low normal systolic function.
LVEF 50-55% by visual estimation.
LAD territory wall motion abnormality.
Stage III diastolic dysfunction suggestive of restrictive filling pattern and
increased filling pressures.
Normal right ventricular size and function.
Severe mitral regurgitation with anteriorly directed jet likely from torn
chordae resulting in prolapse/flail of the posterior leaflet of the mitral
valve.
Severe aortic regurgitation.
Estimated pulmonary artery pressure of 40-45 mmHg. Assuming a right atrial
pressure of 8 mmHg.
No prior study for comparison.
RHC/LHC 08/20/24
HEMODYNAMIC DATA
LV 93/7 (EDP 22) mmHg
AO 91/50 (mean 68) mmHg
CORONARY ANGIOGRAPHY
Dominance: right
LM: large and normal
LAD: large vessel giving rise to a large ramus/D1, moderate caliber D2, and wrapping around the apex. There is a hazy 80% stenosis in the proximal LAD just before D2 and a 50% stenosis after D2.
LCx: gives rise to a single moderate caliber branching marginal. There are mild luminal irregularities.
RCA: large vessel giving rise to a moderate-caliber RPDA and large RPL system. Trivial luminal irregularities.
Physical Exam
Vital Signs/Labs
Vital Signs
Temp Pulse Resp BP Pulse Ox
98.4 F 69 18 92/54 94
08/25/24 11:00 08/25/24 11:00 08/25/24 11:00 08/25/24 11:00 08/25/24 11:00
08/24/24 08/25/24 08/26/24
06:59 06:59 06:59
Actual Weight 58.3 kg 64.3 kg
08/25/24 09:18
08/25/24 04:28
PT 15.1 Sec (11.4-14.6) H 08/25/24 04:28
INR 1.21 08/25/24 04:28
APTT 49.7 Sec (23.4-35.0) H 08/24/24 20:28
Magnesium 2.4 mg/dl (1.6-2.3) H 08/25/24 04:28
Triglycerides 50 mg/dl (10-149) 08/20/24 05:59
LDL Cholesterol, Calc 72 mg/dl 08/20/24 05:59
VLDL Cholesterol, Calc 10 mg/dl (0-30) 08/20/24 05:59
HDL Cholesterol 61 mg/dl 08/20/24 05:59
08/19/24
01:22
[id number] Pept [id number]
Physical Exam
Constitutional: No acute distress and Comfortable
EENT: Anicteric and Moist mucous membranes
Cardiovascular: Rhythm & rate is regular, Pedal edema is absent, JVD pressure is normal and Systolic murmur absent
Respiratory: Respiratory effort normal, Lungs clear to auscul. and Other (Bibasilar crackles)
GI: Soft, Non tender and Normal bowel sounds
Neuro/Psych: Alert, Oriented and AO x 3
Other: Skin
Data Reviewed
-
Date of Service: August 25, 2024
Medical Decision Making: Reviewed Test Results, Independent Historian Assessment and Test Interpretation
EKG: Tracing Personally Visualized and interpreted
Echo: Report Reviewed by me
X-Ray/CT/US/MRI/NUC/PET: Image Personally Visualized and interpreted
Labs: Labs Reviewed by me
Old Records: Reviewed
Critical Care Time (in minutes): 35
[2024-08-25 12:17] LABS: Glucose - Point of Care 114 mg/dl (70-99)
--- NOTE | 2024-08-25 12:39 | PTCARENOTE ---
Cardene and Bumex infusions started due to low CI and low urine output; Milrinone infusion increased to 0.300 mcg/kg/min - see nursing flowsheets for further details; Urine output responding appropriately to Bumex infusion.
CI: 2.11
CO: 3.48
SVR: 1,195
[2024-08-25] MEDS: FERRLECIT 110 MG IV (13:01)
[2024-08-25] MEDS: NSS IV (13:02)
[2024-08-25 14:19] LABS: Mixed Venous O2 Saturation 61.1 %
--- NOTE | 2024-08-25 14:26 | W.PN.ANS.POP ---
Anesthesia Post Operative
- Anesthesia Post Op Note
Vital Signs Stable-See Nursing Note: Yes
Airway Patent: Yes
Adequate Pain Control: Yes
Change in Mental Status: No
Current Postoperative Nausea & Vomiting: No
Anesthesia Complications: No
General Anesthetic Recall: No
Unplanned Admission: No
Post Op Hydration Adequate: Yes
[2024-08-25] MEDS: PACERONE 200 MG PO (16:15)
[2024-08-25 16:16] LABS: Glucose - Point of Care 132 mg/dl (70-99)
--- NOTE | 2024-08-25 16:31 | PTCARENOTE ---
Bumex infusion to stop at 1800 and set to resume at 0600 on 08/26; Temporary pacemaker settings adjusted for stimulation and sensing thresholds due to occasional inappropriate pacing - set at VVI 30/2.0/1.0; SR with frequent PVC's and PAC's on
monitor - PO Amiodarone ordered and given; Patient refusing to turn or change bedsheets at this time - states she is comfortable and does not want to turn at this time; Patient and family educated on risks of pressure injury prevention; Spoke with
CVPA Marge regarding CI <2 - next CI and MVO2 due at 1730.
CI: 1.94
CO: 3.22
SVR: 1,266
[2024-08-25] MEDS: LIPITOR 40 MG PO (17:06)
[2024-08-25 17:57] LABS: Mixed Venous O2 Saturation 58.5 %
--- NOTE | 2024-08-25 18:30 | PTCARENOTE ---
SR with frequent PVC's and PAC's on monitor; CVPA Marge notified and aware - no further orders at this time
--- NOTE | 2024-08-25 19:00 | PTCARENOTE ---
report received from previous RN, walking rounds done. pt in bed, family @ bedside. pt AAOx4. pt denies any pain. SR w frequent PACs and PVCs on monitor, HR 60s-70s, orders received for Amio gtt per CT PA. B/L radial and DP pulses palpable. heart
tones clear. RT radial art line intact, SBP 120s. Cardene gtt infusing @ 5mg. RIJ cordis/swan intact w KVOs infusing. last CI 2.24. PAPs ~50s/20ss. CVP ~19. Milrinone gtt infusing @ 0.3mcg per orders. epicardial wires set to back up VVI, no pacing
spikes noted. B/L breath sounds present. POX 95% on 2NLC. IS encouraged. CT x4 intact to -20cm wall suction, drainage WNL, no air leak present. schultz catheter intact, draining CYU. Bumex gtt has been off since 1800. bowel sounds present. ABD
soft/nontender. pt denies any nausea/vomiting. all surgical sites stable. see worklist for full assessment, VS, and interventions. pt resting comfortably.
[2024-08-25] MEDS: CORDARONE 518 MG IV (20:09)
[2024-08-25 20:27] LABS: Ionized Calcium 1.09 mMOL/L (1.15-1.33)
[2024-08-25 20:50] LABS: Blood Urea Nitrogen 20 mg/dl (7-17); Calcium 8.2 mg/dl (8.4-10.2); Carbon Dioxide 26 mmol/L (22-30); Chloride 100 mmol/L (98-107); Estimated Creatinine Clearance 52 ml/min; Glucose 143 mg/dl (70-99); Potassium 3.8 mmol/L (3.5-5.1); Sodium 134 mmol/L (135-145); eGFR > 60.00
[2024-08-25] MEDS: DILAUDID 0.25 MG IV (21:21)
[2024-08-25] MEDS: KCL 40 MEQ PO (21:23)
[2024-08-25] MEDS: MAGNESIUM OXIDE 500 MG PO (21:23)
[2024-08-25] MEDS: CALCIUM CHLORIDE 10% SYRINGE 60 MG IV (22:01)
--- NOTE | 2024-08-25 23:00 | PTCARENOTE ---
no acute changes, SR w PACs and PVCs. lytes repleted. Amio gtt infusing @ 0.5mg. Cardene gtt off. Milrinone gtt maintained @ 0.3mcg. last CI 2.19. POX 99% on 2LNC. CT output and UO WNL. all surgical sites stable. daughter @ bedside. pt sleeping.
--- NOTE | 2024-08-26 02:35 | PTCARENOTE ---
pt CI 1.72. HR 40s'-50s at times. CT PA notified. orders received for AM MvO2 and to place Amio gtt on hold.
--- NOTE | 2024-08-26 04:15 | W.PN.CT ---
Today's Communication / Plan
-
Plan:
-No major issues overnight. Hemodynamically and neurologically intact
-On Primacor @ 0.30 mcg/kg/min, Cardene gtt for elevated SVR , and Amiodarone gtt for postop PVC's - d/c'd Amio gtt overnight d/t bradycardia
-PVC's resolved with Amiodarone and repletion of electrolytes
-Last CI 2.04, MVO2 64.2%, u/o since OR 1965 mL
-Monitor chest tubes for possible d/c: 2meds 60/225, R/L pl 45/195
-Cont. current meds (ASA, Plavix, Amiodarone and BB currently on hold while on Primacor)
-D/C swan and a-line when able to wean off Primacor
-Transfer to [facility] when able to wean of Primacor
-Keep schultz catheter while on Primacor to monitor I/O's
-Maintain cordis another day
-Maintain temporary PW another day
-Wean off of O2 as tolerated
-Encourage use of IS
-OOB into chair
Assessment / Plan
-
Assessment:
-S/P Standard sternotomy with aortic and bicaval cannulation/ CABG x 2 [SHIRLEY to LAD, aorta to reverse saphenous vein graft to diagonal]/Endoscopic harvest of the right lower extremity for vein/Radical mitral valve repair [32 mm band annuloplasty, 2
pairs of [place]-Misael cords to the P1 flail segment, cleft closure between P1 and P2 and P2 and P3, free margin remodeling]/Aortic valve replacement [25 mm bioprosthesis]/Tricuspid valve repair [28 mm band angioplasty]/ Left atrial appendage exclusion
[35 mm clip]/ Evacuation of bilateral pleural effusions, by Dr. Gipson, 08/24/24, pod#2
-Acute systolic and diastolic heart failure
-Acute NSTEMI (peak trop, 5.64)
-Single-vessel coronary artery disease involving the LAD
-Takotsubo syndrome
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
-Moderately severe aortic valve insufficiency with stenosis and sclerosis
-Moderate TR with dilated annulus
-LVEF 50-55% per intraop KANCHAN
-Bilateral pleural effusion
-UTI
-Hiatal hernia
-Splenic artery aneurysm
-Diverticulosis
-GERD
-Depression/anxiety
-Acute intraop/postop blood loss/Anemia (transfused 2u PRBC's)
-Acute intraop/postop thrombocytopenia (transfuse 2 {5 pk} plts)
-Acute intraop/postop coagulopathy (transfused 4u FFPs)-
-Acute postop hypovolemia with subsequent hypervolemia
-Acute postop atelectasis
-Acute postop PVC's
Discussed patient care with: Cardiology, Nursing, Respiratory Therapy, Pharmacy and Care Team
Subjective
Procedure
-S/P Standard sternotomy with aortic and bicaval cannulation/ CABG x 2 [SHIRLEY to LAD, aorta to reverse saphenous vein graft to diagonal]/Endoscopic harvest of the right lower extremity for vein/Radical mitral valve repair [32 mm band annuloplasty, 2
pairs of [place]-Misael cords to the P1 flail segment, cleft closure between P1 and P2 and P2 and P3, free margin remodeling]/Aortic valve replacement [25 mm bioprosthesis]/Tricuspid valve repair [28 mm band angioplasty]/ Left atrial appendage exclusion
[35 mm clip]/ Evacuation of bilateral pleural effusions, by Dr. Gipson, 08/24/24
-
Date of Service: August 26, 2024
Pt c/o mild incisional pain, otherwise feels well
Objective Data
-
PT 15.1 Sec (11.4-14.6) H 08/25/24 04:28
INR 1.21 08/25/24 04:28
APTT 49.7 Sec (23.4-35.0) H 08/24/24 20:28
Vital Signs
Vital Signs
Temp Pulse Resp BP Pulse Ox
98.1 F 66 20 102/51 100
08/26/24 04:00 08/26/24 04:00 08/25/24 18:00 08/25/24 21:00 08/26/24 04:00
CT Intake/Output/Weight
08/25/24 08/25/24 08/26/24
06:59 18:59 06:59
Intake Total 1252.4 / 2710.5 1403.1 / 2047.0 643.9 / 2047.0
Output Total 580 / 1245 1515 / 2080 565 / 2080
Balance 672.4 / 1465.5 -111.9 / -33.0 78.9 / -33.0
SaO2: 100 (2L)
Physical Exam
-
General: Awake, Oriented and AOx3
Cardiovascular: Regular rate & rhythm, No Murmurs, No Rub and No Gallop
Respiratory: Decreased Breath Sounds
Sternum: Stable
Incision: Clean, Dry, Intact and Dressing Intact
Extremities: Other (+trace edema)
Data Reviewed
-
Lab Results: Results Reviewed
Medications: Active Meds Reviewed
Chest X-Ray: Report Reviewed and Image Reviewed
ECG: Report Reviewed and Image Reviewed
[2024-08-26 04:35] LABS: Mixed Venous O2 Saturation 64.2 %
[2024-08-26 04:37] LABS: Hematocrit 28.4 % (37.0-47.0); Hemoglobin 9.9 g/dL (12.0-16.0); Mean Corp Hgb Conc. 34.9 g/dL (33.0-37.0); Mean Corpuscular Hgb 29.5 pg (27.0-31.0); Mean Corpuscular Volume 84.5 fL (81.0-99.0); Mean Platelet Volume 10.3 fL (7.4-10.4); Platelet Count 169 10^3/uL (130-400); Red Blood Cell Count 3.36 10^6/uL (4.20-5.40); Red Cell Dist. Width 13.7 % (11.5-14.5); White Blood Cell Count 10.5 10^3/uL (4.8-10.8)
[2024-08-26 05:04] LABS: Blood Urea Nitrogen 22 mg/dl (7-17); Calcium 8.7 mg/dl (8.4-10.2); Carbon Dioxide 25 mmol/L (22-30); Chloride 101 mmol/L (98-107); Estimated Creatinine Clearance 46 ml/min; Glucose 134 mg/dl (70-99); Potassium 4.3 mmol/L (3.5-5.1); Sodium 135 mmol/L (135-145); eGFR > 60.00
[2024-08-26 06:00] VITALS: BMI 22.4
--- NOTE | 2024-08-26 08:00 | PTCARENOTE ---
report received from previous RN, walking rounds done. in bed at time of assessment. daughter with her bedside. AAOx3. SR w occasional PACs. HR 60s. V wires set to back up VVI 30/2. no pacing noted. pulses palpable. +1 hand edema and lower extrem
edema. CI 2.02 with Milrinone gtt infusing @ 0.2 mcg (weaned by Dr Gipson bedside) lung sounds diminished. POX 98% on 2NLC. 93% RA but pt requesting to keep on o2 for comfort at this time. IS to 1000. CTx4 intact and for d/c this am. schultz draining
clear yellow urine, also for d/c today. Bumex gtt infusing at 0.5. poor appetite. bs hypoactive. all surgical sites stable. will continue to monitor.
[2024-08-26] MEDS: TYLENOL 1000 MG PO ×3 (08:34→21:23)
[2024-08-26] MEDS: BACTROBAN 2% OINTMENT 1 APPLIC NASAL ×2 (08:35→21:22)
--- NOTE | 2024-08-26 08:54 | W.PN.CD ---
Today's Communication / Plan
-
- Continue diuresis
- Wean off pressors
- Continue Milrinone today - lower dose.
Impression / Plan
-
BACKGROUND: 79F with history of mitral regurgitation presents to ED with SOB and chest pressure, found to have NSTEMI with cath demonstrating culprit LAD disease, and echo demonstrating severe MR and severe AR. She is being evaluated for surgical
MVR/AVR/TVr/ CABG.
NSTEMI s/p CABG x 2 [SHIRLEY to LAD, aorta to reverse saphenous vein graft to diagonal]
Severe mitral regurgitation with P1 flail and severe AI S/P Radical mitral valve repair [32 mm band annuloplasty, 2 pairs of [place]-Misael cords to the P1 flail segment, cleft closure between P1 and P2 and P2 and P3, free margin remodeling]
Severe aortic regurgitation S/P Aortic valve replacement [25 mm bioprosthesis]
Tricuspid regurgitation S/P Aortic valve replacement [25 mm bioprosthesis]
-Operative notes reviewed
-Pre-LVEF 45-50% with some RWMA mostly at the apex and septal wall, post LVEF 45% with continued septal and apical wall motion abnormalities
-ASA resumption per CT surgery
-EKG sinus rhythm, single PVC, and anterior septal T wave abnormality
Extubated on 08/24/2024
On amiodarone, aspirin, Plavix,
Off the pressors.
Wean off Milrinone.
CVP is normalized now.
- Still can diurese today.
Coagulopathy, additional platelets and FFP were given along with 2 units of PRBC and 1 bowl of Cell Saver
Acute on chronic heart failure with mildly reduced EF
Mixed ischemic and non-ischemic cardiomyopathy
-Follow daily weight, anticipate furosemide need
-Consider SGLT2 at a later date.
-Trend daily weight, I/O, and BMP
-Heart failure education
Splenic artery aneurysm, seen on CT
Anxiety and bipolar, on Lamictal
Subjective:
Feeling better. Out of the bed to chair.
TTE 08/20/24
Mildly dilated LV with low normal systolic function.
LVEF 50-55% by visual estimation.
LAD territory wall motion abnormality.
Stage III diastolic dysfunction suggestive of restrictive filling pattern and
increased filling pressures.
Normal right ventricular size and function.
Severe mitral regurgitation with anteriorly directed jet likely from torn
chordae resulting in prolapse/flail of the posterior leaflet of the mitral
valve.
Severe aortic regurgitation.
Estimated pulmonary artery pressure of 40-45 mmHg. Assuming a right atrial
pressure of 8 mmHg.
No prior study for comparison.
RHC/LHC 08/20/24
HEMODYNAMIC DATA
LV 93/7 (EDP 22) mmHg
AO 91/50 (mean 68) mmHg
CORONARY ANGIOGRAPHY
Dominance: right
LM: large and normal
LAD: large vessel giving rise to a large ramus/D1, moderate caliber D2, and wrapping around the apex. There is a hazy 80% stenosis in the proximal LAD just before D2 and a 50% stenosis after D2.
LCx: gives rise to a single moderate caliber branching marginal. There are mild luminal irregularities.
RCA: large vessel giving rise to a moderate-caliber RPDA and large RPL system. Trivial luminal irregularities.
Physical Exam
Vital Signs/Labs
Vital Signs
Temp Pulse Resp BP Pulse Ox
98.6 F 71 18 102/51 98
08/26/24 08:00 08/26/24 08:15 08/26/24 08:00 08/25/24 21:00 08/26/24 08:15
08/25/24 08/26/24 08/27/24
06:59 06:59 06:59
Actual Weight 64.3 kg 62.8 kg
08/26/24 04:25
PT 15.1 Sec (11.4-14.6) H 08/25/24 04:28
INR 1.21 08/25/24 04:28
APTT 49.7 Sec (23.4-35.0) H 08/24/24 20:28
Magnesium 2.0 mg/dl (1.6-2.3) 08/26/24 04:25
Triglycerides 50 mg/dl (10-149) 08/20/24 05:59
LDL Cholesterol, Calc 72 mg/dl 08/20/24 05:59
VLDL Cholesterol, Calc 10 mg/dl (0-30) 08/20/24 05:59
HDL Cholesterol 61 mg/dl 08/20/24 05:59
08/19/24
01:22
[id number]-V-[id number] Pept [id number]
Physical Exam
Constitutional: No acute distress and Comfortable
EENT: Anicteric and Moist mucous membranes
Cardiovascular: Rhythm & rate is regular, Systolic murmur absent, Pedal edema present and JVD present
Respiratory: Respiratory effort normal, Lungs clear to auscul. and Crackles Absent
GI: Soft, Non tender and Normal bowel sounds
Neuro/Psych: Alert, Oriented and AO x 3
Other: Skin
Data Reviewed
-
Date of Service: August 26, 2024
Medical Decision Making: Reviewed Test Results, Independent Historian Assessment, Test Interpretation and Review of Case with other Provider
EKG: Tracing Personally Visualized and interpreted
Labs: Labs Reviewed by me
Old Records: Reviewed
Critical Care Time (in minutes): 35
[2024-08-26] MEDS: LOW STRENGTH ASPIRIN 81 MG PO (09:05)
[2024-08-26] MEDS: PLAVIX 75 MG PO (09:05)
[2024-08-26] MEDS: PROTONIX 40 MG PO (09:05)
[2024-08-26] MEDS: MAGNESIUM OXIDE 500 MG PO ×2 (09:06→21:24)
[2024-08-26] MEDS: LAMICTAL 200 MG PO ×2 (09:06→21:24)
[2024-08-26] MEDS: NEURONTIN 100 MG PO ×3 (09:06→21:24)
[2024-08-26] MEDS: SENOKOT-S 1 TABLET PO (09:07)
--- NOTE | 2024-08-26 09:10 | W.PN.INTV ---
Today's Communication / Plan
Recommendations
Up OOB as tolerated
Encourage incentive spirometer use
Daily CXR
Continue with Bumex drip and maintain net negative fluid balance as tolerated
Replete K >4, Mg >2
Keep MAP >65, SpO2 >90-94%
Wean off milrinone drip while trendingCO/CI and SVO2
[employer] services will continue to follow along while she remains on milrinone drip. Once downgraded to CVICU�telemetry status, we will sign off at that time.
Assessment
-
Assessment: 79-year-old female non-smoker with a PMHx of GERD, CAD with history of NM, anxiety/depression and valvular heart disease who presented on 08/19/2024 with 3-4 weeks of intermittent shortness of breath + chest pain. Initial troponin was
3.31 with an elevated proBNP of 12,500. Initial EKG showed NSR with occasional lateral PVCs. She was admitted to the IVU and treated for ACS + acute decompensated heart failure. Echo showed stage III diastolic dysfunction with preserved LVEF, LAD
territory WMA, with severe MR and severe AI. LHC performed on 08/20/2024 showed single-vessel CAD with 80% stenosis in the proximal LAD and elevated LVEDP at [address] surgery consulted and on 08/24/2024 she underwent CABG x 2 with radical mitral
valve repair, bioprosthetic AVR + TV repair with GUILHERME-exclusion with a 35mm clip. Patient transferred to the CVICU postoperatively with audograph operator services consulted for additional management/recommendations.
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
Impression:
#CAD c/b NSTEMI s/p CABG x 2 (POD #2)
#Severe MR with prolapse/flail P1 segment, severe AI + moderate TR with dilated annulus s/p radical MV repair, bioprosthetic AVR + TV repair with GUILHERME�exclusion (POD #2)
#Acute decompensated heart failure/acute HFmrEF with diastolic heart failure
#Acute anemia
#Acute thrombocytopenia
#Hypoglycemia
#History of anxiety/depression
#GERD
Plan:
Patient was successfully extubated to nasal cannula on 08/24/2024; now currently on 2 L/min nasal cannula saturating 96%
Continue to wean down supplemental O2 flow to maintain SpO2 >90-94%
prn nebulized bronchodilators - not currently bronchospastic
Pulmonary artery catheter parameters will be followed
Pressors/antihypertensive/inotropes/diuretics will be provided as needed
Trend CO/CI and SVO2 while on milrinone gtt
Maintain MAP>65
Replete electrolytes with K>4, Mg>2
Monitor volume status and diurese with Bumex gtt; trend I/O, daily weight, sCr and sNa; keep net negative as tolerated
Monitor chest tube output (mediastinal chest tubes x 2+ left/right pleural chest tubes) - to be removed today
Monitor hemoglobin
Monitor platelet count and coags
Transfuse blood products as needed to maintain Hb>7g/dL, plt>50k (given post-operative status)
- She was given 2 units PRBC on 08/25/2024; otherwise she has been given a total of 3 PRBC, 4 units FFP and [address] surgery managing chest tubes
Monitor blood sugar to maintain euglycemia with goal BG 140-180
Insulin drip per protocol --> insulin drip now stopped as of today; continue insulin SQ to maintain BG goal as above
Aspiration precautions
Encourage IS 10x/hr for at least 4 hrs a day
Cardiac rehab consult
DVT prophylaxis
Early nutrition
Early mobilization
[employer] services will continue to follow along while she remains on milrinone drip. Once off milrinone and downgraded to CVICU�telemetry status, we will sign off at that time.
Critical care statement: A total of 38 minutes of critical care time was provided for this patient today. This includes management of ventilator, spontaneous breathing trial, arterial blood gases, pressors, of unstable vital signs, evaluation of the
patient at bedside, reviewing the patient's pertinent medical records including radiographs, microbiology, laboratory evaluations, and discussion with primary team and critical care nursing.
Data:
Transesophageal echocardiogram 08/24/2024): Intra-operative
Low-normal left ventricular systolic function with LVEF of 50-55%. The apical
anterior and anteroseptal herrera are hypokinetic.
Normal right ventricular systolic function.
Severe mitral regurgitation with prolapse/flail P1 segment.
Severe aortic regurgitation with calcified, restricted leaflets.
Moderate tricuspid regurgitation with dilated annulus.
Normal left atrial appendage.
Grade III atheromatous disease of the aortic arch.
CXR 08/25/2024: Stable postoperative changes with interval removal of endotracheal tube; no pneumothorax. Mild retrocardiac atelectasis
CXR 08/26/2024: Stable postoperative changes with retrocardiac atelectasis at the left lung base; no pneumothorax
Subjective Dataa
Subjective Data
Date of Service:
Date of Service: August 26, 2024
Chief Complaint: [employer] Developer Follow Up
Subjective:
Patient was seen and evaluated today at bedside. Remains on milrinone at 0.2mcg/kg/min + Bumex 0.5 mg/hr. Currently on 1 L/min nasal cannula saturating 97%, with heart rate 70, and BP via A-line: 117/51. PAP: 32/7 and CO/CI: 3.29/1.98,
respectively. Patient daughters, Samantha + Ary, were at bedside. All questions were answered. Patient is very tired and was sleeping in no acute distress. She is easily arousable and denies SOB, DEJESUS, abdominal pain, fevers or chills.
Review of Systems
General: Other (Negative unless mentioned above)
Objective Data
Data Reviewed
Vital Signs / I&O / Oxygen:
Vital Signs
Temp Pulse Resp BP Pulse Ox
98.1 F 70 18 102/51 97
08/26/24 09:00 08/26/24 09:16 08/26/24 09:00 08/25/24 21:00 08/26/24 09:00
Intake and Output
08/25/24 08/26/24 08/27/24
06:59 06:59 06:59
Intake Total 2680.5 / 2710.5 2127.4 / 2127.4 81.0 / 81.0
Output Total 1200 / 1245 2385 / 2385 300 / 300
Balance 1480.5 / 1465.5 -257.6 / -257.6 -219.0 / -219.0
SaO2 [CPAP/PSV] 99
SaO2 [SIMV] 100
SaO2 97
Nasal Cannula flow liters per 1
minute
Physical Exam
General: Respiratory Distress (negative), Comfortable, Chills (negative) and Sweats (negative)
HEENT: Normocephalic and Anicteric
Cardiovascular: S1-S2 and Peripheral Edema (negative)
Respiratory: Clear, Wheeze (negative), Crackles (negative), Rhonchi (negative), Non-Labored Respirations and Chest Tube (mediastinal chest tubes x 2+ left/right pleural chest tubes)
GI: Soft, Non Distended, Non Tender and Normal Bowel Sounds
Neurology: Tremors (negative) and Other (Sleepy but easily arousable and answering all questions appropriately)
Skin: Warm, Dry, Jaundice (negative) and Rash (negative)
Labs/Micro/Reports
Lab Data
08/26/24 04:25
Microbiology
08/21/24 21:21 Urine Urine Culture - Final
No Significant Growth
[2024-08-26 09:39] LABS: Glucose - Point of Care 129 mg/dl (70-99)
[2024-08-26] MEDS: FERRLECIT 110 MG IV (13:28)
[2024-08-26] MEDS: BUMEX 50 IV (13:47)
--- NOTE | 2024-08-26 14:00 | PTCARENOTE ---
chest tubes d/c'd and CXR obtained bedside.
[2024-08-26 15:21] LABS: Blood Urea Nitrogen 22 mg/dl (7-17); Calcium 8.2 mg/dl (8.4-10.2); Carbon Dioxide 28 mmol/L (22-30); Chloride 98 mmol/L (98-107); Estimated Creatinine Clearance 52 ml/min; Glucose 108 mg/dl (70-99); Magnesium 1.9 mg/dl (1.6-2.3); Potassium 3.7 mmol/L (3.5-5.1); Sodium 135 mmol/L (135-145); eGFR > 60.00
--- NOTE | 2024-08-26 16:00 | PTCARENOTE ---
VSS and assessment remains uchanged from previous assessment.
[2024-08-26] MEDS: KCL 40 MEQ PO (16:53)
[2024-08-26] MEDS: NSS 500 IV (16:54)
[2024-08-26] MEDS: KCL 50 IV (16:57)
[2024-08-26] MEDS: MAGNESIUM SULFATE 50 IV (17:08)
[2024-08-26] MEDS: LIPITOR 40 MG PO (17:10)
[2024-08-26 17:13] LABS: Glucose - Point of Care 113 mg/dl (70-99)
[2024-08-26 21:22] VITALS: BP 129/67
[2024-08-26] MEDS: ROXICODONE 5 MG PO (21:23)
[2024-08-26] MEDS: ATIVAN 0.5 MG PO (21:23)
[2024-08-26] MEDS: SENOKOT-S PO (21:24)
[2024-08-27] VITALS (22 sets, daily range): BP systolic 72–128; BP diastolic 47–74; PULSE 75–78; O2SAT 94; BMI 22.1
--- NOTE | 2024-08-27 03:46 | W.PN.CT ---
Today's Communication / Plan
-
Plan:
-No major issues overnight. Hemodynamically and neurologically intact
-Primacor weaned to 0.20 mcg/kg/min, will resume Bumex gtt @ 0.5 mg/hr from 6AM-PM
-PVC's resolved with Amiodarone and repletion of electrolytes. Check lytes and replete while on bumex gtt
-Last CI 2.2, MVO2 70.5%, u/o since OR 1275 mL
-Cont. current meds (ASA, Plavix, Amiodarone and BB currently on hold while on Primacor as well given postop bradycardia/hypotension)
-D/C swan and a-line when able to wean off Primacor
-Transfer to tele phase when able to wean of Primacor
-Maintain cordis while on Primacor and still with swan
-Maintain temporary PW while on Primacor (will cut, not pull before d/c home)
-Wean off of O2 as tolerated
-Encourage use of IS
-OOB into chair/Ambulate as tolerated
-PT/OT consult
Assessment / Plan
-
Assessment:
-S/P Standard sternotomy with aortic and bicaval cannulation/ CABG x 2 [SHIRLEY to LAD, aorta to reverse saphenous vein graft to diagonal]/Endoscopic harvest of the right lower extremity for vein/Radical mitral valve repair [32 mm band annuloplasty, 2
pairs of [place]-Misael cords to the P1 flail segment, cleft closure between P1 and P2 and P2 and P3, free margin remodeling]/Aortic valve replacement [25 mm bioprosthesis]/Tricuspid valve repair [28 mm band angioplasty]/ Left atrial appendage exclusion
[35 mm clip]/ Evacuation of bilateral pleural effusions, by Dr. Gipson, 08/24/24, pod#3
-Acute systolic and diastolic heart failure
-Acute NSTEMI (peak trop, 5.64)
-Single-vessel coronary artery disease involving the LAD
-Takotsubo syndrome
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
-Moderately severe aortic valve insufficiency with stenosis and sclerosis
-Moderate TR with dilated annulus
-LVEF 50-55% per intraop KANCHAN
-Bilateral pleural effusion
-UTI
-Hiatal hernia
-Splenic artery aneurysm
-Diverticulosis
-GERD
-Depression/anxiety
-Acute intraop/postop blood loss/Anemia (transfused 3u PRBC's)
-Acute intraop/postop thrombocytopenia (transfuse 2 {5 pk} plts)
-Acute intraop/postop coagulopathy (transfused 4u FFPs)-
-Acute postop hypovolemia with subsequent hypervolemia
-Acute postop atelectasis
-Acute postop PVC's
Discussed patient care with: Cardiology, Nursing, Respiratory Therapy, Pharmacy and Care Team
Subjective
Procedure
-S/P Standard sternotomy with aortic and bicaval cannulation/ CABG x 2 [SHIRLEY to LAD, aorta to reverse saphenous vein graft to diagonal]/Endoscopic harvest of the right lower extremity for vein/Radical mitral valve repair [32 mm band annuloplasty, 2
pairs of [place]-Misael cords to the P1 flail segment, cleft closure between P1 and P2 and P2 and P3, free margin remodeling]/Aortic valve replacement [25 mm bioprosthesis]/Tricuspid valve repair [28 mm band angioplasty]/ Left atrial appendage exclusion
[35 mm clip]/ Evacuation of bilateral pleural effusions, by Dr. Gipson, 08/24/24
-
Date of Service: August 27, 2024
Pt c/o mild incisional pain, otherwise feels well
Objective Data
-
PT 15.1 Sec (11.4-14.6) H 08/25/24 04:28
INR 1.21 08/25/24 04:28
APTT 49.7 Sec (23.4-35.0) H 08/24/24 20:28
Vital Signs
Vital Signs
Temp Pulse Resp BP Pulse Ox
98 F 70 18 129/67 98
08/26/24 20:00 08/26/24 22:15 08/26/24 20:00 08/26/24 21:22 08/26/24 16:00
CT Intake/Output/Weight
08/26/24 08/26/24 08/27/24
06:59 18:59 06:59
Intake Total 724.3 / 2127.4 319.5 / 319.5
Output Total 870 / 2385 1475 / 1475
Balance -145.7 / -257.6 -1155.5 / -1155.5
SaO2: 98 (2L)
Physical Exam
-
General: Awake, Oriented and AOx3
Cardiovascular: Regular rate & rhythm, No Murmurs and No Gallop
Respiratory: Decreased Breath Sounds (at bases, otherwise clear)
Sternum: Stable
Incision: Clean, Dry, Intact and Dressing Intact
Extremities: Other (+trace edema)
Data Reviewed
-
Lab Results: Results Reviewed
Medications: Active Meds Reviewed
Chest X-Ray: Report Reviewed and Image Reviewed
ECG: Report Reviewed and Image Reviewed
[2024-08-27 04:28] LABS: Hematocrit 28.7 % (37.0-47.0); Hemoglobin 9.7 g/dL (12.0-16.0); Mean Corp Hgb Conc. 33.8 g/dL (33.0-37.0); Mean Corpuscular Hgb 28.8 pg (27.0-31.0); Mean Corpuscular Volume 85.2 fL (81.0-99.0); Platelet Count 172 10^3/uL (130-400); Red Blood Cell Count 3.37 10^6/uL (4.20-5.40); Red Cell Dist. Width 13.8 % (11.5-14.5); White Blood Cell Count 9.8 10^3/uL (4.8-10.8)
[2024-08-27 04:37] LABS: Mixed Venous O2 Saturation 70.5 %
[2024-08-27 04:40] LABS: Ionized Calcium 1.09 mMOL/L (1.15-1.33)
[2024-08-27 04:54] LABS: Blood Urea Nitrogen 19 mg/dl (7-17); Calcium 7.7 mg/dl (8.4-10.2); Carbon Dioxide 31 mmol/L (22-30); Chloride 97 mmol/L (98-107); Estimated Creatinine Clearance 59 ml/min; Glucose 97 mg/dl (70-99); Magnesium 2.3 mg/dl (1.6-2.3); Potassium 3.4 mmol/L (3.5-5.1); Sodium 136 mmol/L (135-145); eGFR > 60.00
[2024-08-27] MEDS: KCL 40 MEQ PO ×3 (06:45→19:56)
--- NOTE | 2024-08-27 07:00 | PTCARENOTE ---
Bedside walking rounds report received. Patient seen on rounds resting in bed: 1L nasal canula titrated to room air. Fully lined with swan den catheter right IJ cordis.right radial art line: milrinone verified at bedside to be 0.2mcg/kg/min and
titrated down per Dr. Gipson on CT surgical rounds to 0.125mcg/kg/min: plan is to check MVO2 at 11am and CI's (>2.2) and deline if stable. Bumex gtt verified to be running at 0.5mg/hr and pure wick was leaking: repositioned and cleansed perineal area.
Assisted oob with assist of 2. NSR with pvc and occ PAC's. IS to 1250ml x 10 reps: need encouragement. Room air once oob in chair and upright. See flow record for remaining assessments.
[2024-08-27] MEDS: CALCIUM GLUCONATE 130 MG IV (07:42)
[2024-08-27 07:51] LABS: Glucose - Point of Care 79 mg/dl (70-99)
[2024-08-27] MEDS: TYLENOL PO (08:20)
[2024-08-27] MEDS: LAMICTAL 200 MG PO ×2 (08:20→19:55)
[2024-08-27] MEDS: LOW STRENGTH ASPIRIN 81 MG PO (08:20)
[2024-08-27] MEDS: PLAVIX 75 MG PO (08:20)
[2024-08-27] MEDS: PROTONIX 40 MG PO (08:20)
[2024-08-27] MEDS: MAGNESIUM OXIDE 500 MG PO ×2 (08:20→19:56)
[2024-08-27] MEDS: NEURONTIN 100 MG PO ×3 (08:21→21:36)
[2024-08-27] MEDS: BACTROBAN 2% OINTMENT 1 APPLIC NASAL ×2 (08:21→19:56)
--- NOTE | 2024-08-27 08:22 | W.PN.CD ---
Today's Communication / Plan
-
consider starting lisinopril 2.5 qd and wean off milrinone through the day
could stop bumex drip later today
Impression / Plan
-
BACKGROUND: 79F with history of mitral regurgitation presents to ED with SOB and chest pressure, found to have NSTEMI with cath demonstrating culprit LAD disease, and echo demonstrating severe MR and severe AR. She is being evaluated for surgical
MVR/AVR/TVr/ CABG.
NSTEMI s/p CABG x 2 [SHIRLEY to LAD, aorta to reverse saphenous vein graft to diagonal]
Severe mitral regurgitation with P1 flail and severe AI S/P Radical mitral valve repair [32 mm band annuloplasty, 2 pairs of [place]-Misael cords to the P1 flail segment, cleft closure between P1 and P2 and P2 and P3, free margin remodeling]
Severe aortic regurgitation S/P Aortic valve replacement [25 mm bioprosthesis]
Tricuspid regurgitation S/P Aortic valve replacement [25 mm bioprosthesis]
-Pre-LVEF 45-50% with some RWMA mostly at the apex and septal wall, post LVEF 45% with continued septal and apical wall motion abnormalities
- Now on milrinone 0.125 and bumex 0.5mg/hr infusions
BP 114/80 with PA 38/16
- Would add low dose lisinopril and continue to wean off milrinone
CVP is normalized now.
- Might consider stopping bumex drip later today
Mixed ischemic and non-ischemic cardiomyopathy
-Follow daily weight, anticipate furosemide need
-Consider SGLT2 at a later date.
-Trend daily weight, I/O, and BMP
-Heart failure education
Splenic artery aneurysm, seen on CT
Anxiety and bipolar, on Lamictal
Subjective:
Feeling better. Enjoying breakfast in chair
TTE 08/20/24
Mildly dilated LV with low normal systolic function.
LVEF 50-55% by visual estimation.
LAD territory wall motion abnormality.
Stage III diastolic dysfunction suggestive of restrictive filling pattern and
increased filling pressures.
Normal right ventricular size and function.
Severe mitral regurgitation with anteriorly directed jet likely from torn
chordae resulting in prolapse/flail of the posterior leaflet of the mitral
valve.
Severe aortic regurgitation.
Estimated pulmonary artery pressure of 40-45 mmHg. Assuming a right atrial
pressure of 8 mmHg.
No prior study for comparison.
RHC/LHC 08/20/24
HEMODYNAMIC DATA
LV 93/7 (EDP 22) mmHg
AO 91/50 (mean 68) mmHg
CORONARY ANGIOGRAPHY
Dominance: right
LM: large and normal
LAD: large vessel giving rise to a large ramus/D1, moderate caliber D2, and wrapping around the apex. There is a hazy 80% stenosis in the proximal LAD just before D2 and a 50% stenosis after D2.
LCx: gives rise to a single moderate caliber branching marginal. There are mild luminal irregularities.
RCA: large vessel giving rise to a moderate-caliber RPDA and large RPL system. Trivial luminal irregularities.
Physical Exam
Vital Signs/Labs
Vital Signs
Temp Pulse Resp BP Pulse Ox
97.9 F 78 18 128/74 95
08/27/24 07:52 08/27/24 07:52 08/27/24 07:52 08/27/24 06:58 08/27/24 07:52
08/26/24 08/27/24 08/28/24
06:59 06:59 06:59
Actual Weight 138 lb 7.205 oz
08/27/24 04:20
PT 15.1 Sec (11.4-14.6) H 08/25/24 04:28
INR 1.21 08/25/24 04:28
APTT 49.7 Sec (23.4-35.0) H 08/24/24 20:28
Magnesium 2.3 mg/dl (1.6-2.3) 08/27/24 04:20
Triglycerides 50 mg/dl (10-149) 08/20/24 05:59
LDL Cholesterol, Calc 72 mg/dl 08/20/24 05:59
VLDL Cholesterol, Calc 10 mg/dl (0-30) 08/20/24 05:59
HDL Cholesterol 61 mg/dl 08/20/24 05:59
08/19/24
01:22
[id number] Pept [id number]
Physical Exam
Constitutional: No acute distress
Cardiovascular: Rhythm & rate is regular, S1S2 is normal and Murmur/rub/gallop absent
Respiratory: Respiratory effort normal, Rhonchi Present and Other (Dullness L base)
GI: Non tender
Neuro/Psych: AO x 3 and Motor deficits absent
Data Reviewed
-
Date of Service: August 27, 2024
[2024-08-27] MEDS: SENOKOT-S PO ×2 (08:24→19:57)
--- NOTE | 2024-08-27 08:44 | W.PN.INTV ---
Today's Communication / Plan
Recommendations
Doing well, can likely be weaned to RA
Chest tubes discontinued, swan continues
Remains on milrinone and bumex, wean off per team
PT/OT FLAKITO brown, IS
Family at bedside
Assessment
-
79-year-old female non-smoker with a PMHx of GERD, CAD with history of FL, anxiety/depression and valvular heart disease who presented on 08/19/2024 with 3-4 weeks of intermittent shortness of breath + chest pain. Initial troponin was 3.31 with an
elevated proBNP of 12,500. Initial EKG showed NSR with occasional lateral PVCs. She was admitted to the IVU and treated for ACS + acute decompensated heart failure. Echo showed stage III diastolic dysfunction with preserved LVEF, LAD territory
WMA, with severe MR and severe AI. LHC performed on 08/20/2024 showed single-vessel CAD with 80% stenosis in the proximal LAD and elevated LVEDP at [address] surgery consulted and on 08/24/2024 she underwent CABG x 2 with radical mitral valve
repair, bioprosthetic AVR + TV repair with GUILHERME-exclusion with a 35mm clip. Patient transferred to the CVICU postoperatively with day care aide services consulted for additional management/recommendations.
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
Impression:
#CAD c/b NSTEMI s/p CABG x 2 (POD #2)
#Severe MR with prolapse/flail P1 segment, severe AI + moderate TR with dilated annulus s/p radical MV repair, bioprosthetic AVR + TV repair with GUILHERME�exclusion (POD #2)
#Acute decompensated heart failure/acute HFmrEF with diastolic heart failure
#Acute anemia
#Acute thrombocytopenia
#Hypoglycemia
#History of anxiety/depression
#GERD
Plan:
Patient was successfully extubated to nasal cannula on 08/24/2024; now currently on 1 L/min nasal cannula saturating 96%
O2 can be weaned to off
prn nebulized bronchodilators - not currently bronchospastic
Pulmonary artery catheter parameters will be followed
Pressors/antihypertensive/inotropes/diuretics will be provided as needed
Trend CO/CI and SVO2 while on milrinone gtt
Maintain MAP>65
Replete electrolytes with K>4, Mg>2
Monitor volume status and diurese with Bumex gtt; trend I/O, daily weight, sCr and sNa; keep net negative as tolerated
Wean off bumex and milrinone per team
Chest tube discontinued
Monitor hemoglobin
Monitor platelet count and coags
Transfuse blood products as needed to maintain Hb>7g/dL, plt>50k (given post-operative status)
- She was given 2 units PRBC on 08/25/2024; otherwise she has been given a total of 3 PRBC, 4 units FFP and 2 units platelets
Further postop care per team
Monitor blood sugar to maintain euglycemia with goal BG 140-180
Insulin drip per protocol --> insulin drip now off
Continue insulin SQ to maintain BG goal as above
Aspiration precautions
Encourage IS 10x/hr for at least 4 hrs a day
Cardiac rehab consult
DVT prophylaxis
Early nutrition
Early mobilization
Data:
Transesophageal echocardiogram 08/24/2024): Intra-operative. Low-normal left ventricular systolic function with LVEF of 50-55%. The apical anterior and anteroseptal herrera are hypokinetic. Normal right ventricular systolic function. Severe mitral
regurgitation with prolapse/flail P1 segment. Severe aortic regurgitation with calcified, restricted leaflets. Moderate tricuspid regurgitation with dilated annulus. Normal left atrial appendage. Grade III atheromatous disease of the aortic arch.
CXR 08/25/2024: Stable postoperative changes with interval removal of endotracheal tube; no pneumothorax. Mild retrocardiac atelectasis
CXR 08/26/2024: Stable postoperative changes with retrocardiac atelectasis at the left lung base; no pneumothorax
-----
Critical Care time 35 mins -- The patient is admitted for acute critical illness for the treatment of vital organ failure and/or prevention of further life-threatening conditions. Total care includes time spent in review of history, physical exam,
medications, hemodynamic/ventilator parameters, laboratory data, imaging and discussion with house staff, pharmacy, respiratory therapy, sheriff sergeant, and nursing.
Subjective Dataa
Subjective Data
Date of Service:
Date of Service: August 27, 2024
Chief Complaint: Instrument/Control Technician Follow Up
Subjective:
no acute events ON, remains on milrinone/bumex gtt
stable on 1L satting 98%, no new complaints
family at bedside
Objective Data
Data Reviewed
Vital Signs / I&O / Oxygen:
Vital Signs
Temp Pulse Resp BP Pulse Ox
97.9 F 78 18 128/74 95
08/27/24 07:52 08/27/24 07:52 08/27/24 07:52 08/27/24 06:58 08/27/24 07:52
Intake and Output
08/26/24 08/27/24 08/28/24
06:59 06:59 06:59
Intake Total 2127.4 / 2127.4 319.5 / 319.5
Output Total 2385 / 2385 2475 / 2475
Balance -257.6 / -257.6 -2155.5 / -2155.5
SaO2 [CPAP/PSV] 99
SaO2 [SIMV] 100
SaO2 95
Nasal Cannula flow liters per 1
minute
Physical Exam
General: Respiratory Distress (negative), Comfortable, Chills (negative) and Sweats (negative)
HEENT: Normocephalic, Anicteric and Moist Mucous Membranes
Cardiovascular: S1-S2, Regular Rhythm, Peripheral Edema (negative) and Other (swan in place)
Respiratory: Clear, Wheeze (negative), Crackles (negative), Rhonchi (negative) and Non-Labored Respirations
GI: Soft, Non Distended, Non Tender and Normal Bowel Sounds
Neurology: Awake, Alert, Oriented and No Motor Deficits
Skin: Warm, Dry, Jaundice (negative) and Rash (negative)
Labs/Micro/Reports
Lab Data
08/27/24 04:20
[2024-08-27] MEDS: ZESTRIL 2.5 MG PO (08:58)
[2024-08-27 11:28] LABS: Blood Urea Nitrogen 17 mg/dl (7-17); Calcium 8.8 mg/dl (8.4-10.2); Carbon Dioxide 29 mmol/L (22-30); Chloride 96 mmol/L (98-107); Estimated Creatinine Clearance 69 ml/min; Glucose 94 mg/dl (70-99); Potassium 3.8 mmol/L (3.5-5.1); Sodium 133 mmol/L (135-145); eGFR > 60.00
[2024-08-27] MEDS: PRIMACOR 20 MG 100 IV (11:30)
--- NOTE | 2024-08-27 12:00 | PTCARENOTE ---
Latest MVO2 and hemodynamics reported to Miriam, CT surg DUST COLLECTOR: ok to deline patient and obtain future MvO2's from cordis catheter. Patient assisted back to bed: right IJ swan den catheter dc/right radial art line dc. Diuresing large amounts clear
straw colored urine via fully functional purewick. NSR with PVV's and occ pac's. No acute changes.
[2024-08-27] MEDS: TYLENOL 1000 MG PO ×2 (15:33→21:36)
[2024-08-27] MEDS: FERRLECIT 110 MG IV (15:34)
[2024-08-27 16:57] LABS: Mixed Venous O2 Saturation 69.2 %
--- NOTE | 2024-08-27 17:00 | PTCARENOTE ---
No acute changes. Outputs/large diuresis and most recent labs reported to Wesley Peralta, PAc: new orders: dc bumex gtt. NSR with pac's on monitor
[2024-08-27 17:08] LABS: Blood Urea Nitrogen 18 mg/dl (7-17); Calcium 8.7 mg/dl (8.4-10.2); Carbon Dioxide 34 mmol/L (22-30); Chloride 91 mmol/L (98-107); Estimated Creatinine Clearance 52 ml/min; Glucose 124 mg/dl (70-99); Potassium 3.8 mmol/L (3.5-5.1); Sodium 136 mmol/L (135-145); eGFR > 60.00
--- NOTE | 2024-08-27 17:10 | CM ---
PT/OT recomm rehab, referral to [facility]. await acceptance and bed avail.
[2024-08-27] MEDS: NSS IV (17:22)
[2024-08-27] MEDS: LIPITOR 40 MG PO (18:40)
--- NOTE | 2024-08-27 20:00 | PTCARENOTE ---
Received pt from [facility]. pt resting comfortably in bed. pt is AAOx4, states pain is 3/10. NSR on monitor. VSS. heart sounds audible, radial and DP pulses palpable, trace LIDYA, temp epicardial AV wires set to VVI, rate of 30, MA of 2, and MV at 1.
lungs diminished at b/l bases, spo2 95% on 1LNC. + BS x4 quadrants, abdomen soft non tender. pt voiding clear yellow urine via purewick, purewick changed at begining of shift and skin inspected. surgical sites maintained, arms and sternal incision
ecchymotic. right IJ cordis and PIV maintained. milrinone gtt infusing. chest tube dressing changed, CHG bath given, new gown and linens provided. call maurice within reach. will continue to monitor.
[2024-08-27] MEDS: LOPRESSOR 12.5 MG PO (21:34)
[2024-08-28] VITALS (24 sets, daily range): BP systolic 77–139; BP diastolic 46–77; BMI 22.5
--- NOTE | 2024-08-28 | PTCARENOTE ---
pt resting comfortably in bed. ongoing low BP, see VSs. CVPA aware. milrinone gtt still infusing. awaiting orders. call maurice within reach. will continue to monitor.
[2024-08-28 03:23] LABS: Mixed Venous O2 Saturation 63.5 %
[2024-08-28 03:27] LABS: Hematocrit 29.7 % (37.0-47.0); Mean Corp Hgb Conc. 33.7 g/dL (33.0-37.0); Mean Corpuscular Hgb 30.1 pg (27.0-31.0); Mean Corpuscular Volume 89.5 fL (81.0-99.0); Platelet Count 205 10^3/uL (130-400); Red Blood Cell Count 3.32 10^6/uL (4.20-5.40); Red Cell Dist. Width 13.9 % (11.5-14.5); White Blood Cell Count 9.4 10^3/uL (4.8-10.8)
[2024-08-28 03:55] LABS: Blood Urea Nitrogen 24 mg/dl (7-17); Calcium 8.1 mg/dl (8.4-10.2); Carbon Dioxide 33 mmol/L (22-30); Chloride 93 mmol/L (98-107); Estimated Creatinine Clearance 46 ml/min; Glucose 97 mg/dl (70-99); Magnesium 2.2 mg/dl (1.6-2.3); Potassium 4.4 mmol/L (3.5-5.1); Sodium 133 mmol/L (135-145); eGFR > 60.00
--- NOTE | 2024-08-28 04:00 | PTCARENOTE ---
pt assessment unchanged. NSR on monitor. VSS. labs drawn and sent. call maurice within reach. will continue to monitor.
[2024-08-28] MEDS: TYLENOL 1000 MG PO ×3 (05:09→22:48)
--- NOTE | 2024-08-28 05:15 | PTCARENOTE ---
pt had large void with purewick in but purewick did not work. pt changed, sheets changed. new purewick changed. sink inspected, was intact. suction increased. will continue to monitor.
--- NOTE | 2024-08-28 06:51 | W.PN.CT ---
Today's Communication / Plan
-
-pod #4
-no significant issues overnight, feeling well, no complaints
-drips: Milrinone 0.125. mVO2 am is 63.5
-low BP overnight high 70s-low 90s (asymptomatic, sleeping). Started on Lopressor 12.5 bid and Lisinopril 2.5 qd on 08/27. Monitor BP- 114/59 this am
-current meds (ASA, Plavix, Lipitor, Lopressor, Lisinopril, Protonix). Holding Amio
-diuresed with Bumex drip on 08/27 (UO 3400).
-Maintain temporary PW while on Primacor (will cut, not pull before d/c home)
-Wean off of O2 as tolerated- pOx 97% on 1L
-Encourage use of IS
-OOB into chair/Ambulate as tolerated
-continue PT/OT
-appreciate everyone's input
Assessment / Plan
-
Assessment:
-S/P Standard sternotomy with aortic and bicaval cannulation/ CABG x 2 [SHIRLEY to LAD, aorta to reverse saphenous vein graft to diagonal]/Endoscopic harvest of the right lower extremity for vein/Radical mitral valve repair [32 mm band annuloplasty, 2
pairs of [place]-Misael cords to the P1 flail segment, cleft closure between P1 and P2 and P2 and P3, free margin remodeling]/Aortic valve replacement [25 mm bioprosthesis]/Tricuspid valve repair [28 mm band angioplasty]/ Left atrial appendage exclusion
[35 mm clip]/ Evacuation of bilateral pleural effusions, by Dr. Gipson, 08/24/24, pod#4
-Acute systolic and diastolic heart failure
-Acute NSTEMI (peak trop, 5.64)
-Single-vessel coronary artery disease involving the LAD
-Takotsubo syndrome
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
-Moderately severe aortic valve insufficiency with stenosis and sclerosis
-Moderate TR with dilated annulus
-Pre-LVEF 45-50% with some RWMA mostly at the apex and septal wall, post LVEF 45% with continued septal and apical wall motion abnormalities
-LVEF 50-55% per intraop KANCHAN
-Bilateral pleural effusion
-UTI
-Hiatal hernia
-Splenic artery aneurysm
-Diverticulosis
-GERD
-Depression/anxiety
-Acute intraop/postop blood loss/Anemia (transfused 3u PRBC's)
-Acute intraop/postop thrombocytopenia (transfuse 2 {5 pk} plts)
-Acute intraop/postop coagulopathy (transfused 4u FFPs)-
-Acute postop hypovolemia with subsequent hypervolemia
-Acute postop atelectasis
-Acute postop PVC's
Discussed patient care with: Nursing and Care Team
Subjective
Procedure
-S/P Standard sternotomy with aortic and bicaval cannulation/ CABG x 2 [SHIRLEY to LAD, aorta to reverse saphenous vein graft to diagonal]/Endoscopic harvest of the right lower extremity for vein/Radical mitral valve repair [32 mm band annuloplasty, 2
pairs of [place]-Misael cords to the P1 flail segment, cleft closure between P1 and P2 and P2 and P3, free margin remodeling]/Aortic valve replacement [25 mm bioprosthesis]/Tricuspid valve repair [28 mm band angioplasty]/ Left atrial appendage exclusion
[35 mm clip]/ Evacuation of bilateral pleural effusions, by Dr. Gipson, 08/24/24
-
Date of Service: August 28, 2024
Objective Data
-
PT 15.1 Sec (11.4-14.6) H 08/25/24 04:28
INR 1.21 08/25/24 04:28
APTT 49.7 Sec (23.4-35.0) H 08/24/24 20:28
Vital Signs
Vital Signs
Temp Pulse Resp BP Pulse Ox
98.7 F 68 16 87/59 98
08/28/24 00:00 08/28/24 01:15 08/28/24 01:15 08/28/24 01:00 08/28/24 01:15
CT Intake/Output/Weight
08/27/24 08/27/24 08/28/24
06:59 18:59 06:59
Intake Total 1719.8 / 1719.8
Output Total 1000 / 2475 3400 / 3400
Balance -1000 / -2155.5 -1680.2 / -1680.2
SaO2: 98
Physical Exam
-
General: Awake and AOx3
Cardiovascular: Regular rate & rhythm, No Murmurs and No Rub
Respiratory: Decreased Breath Sounds
Sternum: Stable
Incision: Clean, Dry and Intact
Extremities: Edema +1 (2+ DP b/l)
Abdomen: soft, nontender, nondistended, + bowel sounds
Data Reviewed
-
Lab Results: Results Reviewed
Medications: Active Meds Reviewed
Chest X-Ray: Report Reviewed and Image Reviewed
ECG: Report Reviewed and Image Reviewed
--- NOTE | 2024-08-28 07:56 | PTCARENOTE ---
Patient received from shift supervisor resting oob in chair, AAO X 3, states pain controlled. NSR via cm, SaO2 @ 95% on RA. RIJ Cordis w/kvo infusing. Epicardial A+V wires to pulse generator, set to backup rate VVI 30, no spikes noted. All procedural
sites stable. Dr. Gipson and CT team to bedside, patient updated to plan of care for the day, in agreement. See work list for full assessment, interventions performed, and intravenous infusions and titrations.
[2024-08-28] MEDS: SENOKOT-S PO ×3 (08:28→20:18)
[2024-08-28] MEDS: BACTROBAN 2% OINTMENT 1 APPLIC NASAL (08:28)
[2024-08-28] MEDS: LOW STRENGTH ASPIRIN 81 MG PO (08:28)
[2024-08-28] MEDS: MAGNESIUM OXIDE 500 MG PO ×2 (08:28→20:14)
[2024-08-28] MEDS: LOPRESSOR 12.5 MG PO ×2 (08:28→20:14)
[2024-08-28] MEDS: ZESTRIL 2.5 MG PO (08:29)
[2024-08-28] MEDS: LAMICTAL 200 MG PO ×2 (08:29→20:14)
[2024-08-28] MEDS: PROTONIX 40 MG PO (08:29)
[2024-08-28] MEDS: NEURONTIN 100 MG PO ×3 (08:29→22:48)
[2024-08-28] MEDS: PLAVIX 75 MG PO (08:29)
[2024-08-28] MEDS: KCL PO (10:05)
--- NOTE | 2024-08-28 11:19 | W.PN.CD ---
Today's Communication / Plan
-
Continue current postop management
Aim to keep even with as needed Bumex as needed.
Impression / Plan
-
BACKGROUND: 79F with history of mitral regurgitation presents to ED with SOB and chest pressure, found to have NSTEMI with cath demonstrating culprit LAD disease, and echo demonstrating severe MR and severe AR. She is being evaluated for surgical
MVR/AVR/TVr/ CABG.
NSTEMI s/p CABG x 2 [SHIRLEY to LAD, aorta to reverse saphenous vein graft to diagonal]
Severe mitral regurgitation with P1 flail and severe AI S/P Radical mitral valve repair [32 mm band annuloplasty, 2 pairs of [place]-Misael cords to the P1 flail segment, cleft closure between P1 and P2 and P2 and P3, free margin remodeling]
Severe aortic regurgitation S/P Aortic valve replacement [25 mm bioprosthesis]
Tricuspid regurgitation S/P Aortic valve replacement [25 mm bioprosthesis]
-Pre-LVEF 45-50% with some RWMA mostly at the apex and septal wall, post LVEF 45% with continued septal and apical wall motion abnormalities
-weaned off Milrinone and Bumex off after great response while on gtt-would aim to keep negative today as well, can use prn bumex to get to goal.
-lisinopril added
Mixed ischemic and non-ischemic cardiomyopathy
-Follow daily weight
-Consider SGLT2 at a later date.
-Trend daily weight, I/O, and BMP
-Heart failure education
Splenic artery aneurysm, seen on CT
Anxiety and bipolar, on Lamictal
Subjective:
Feeling better. Enjoying breakfast in chair
TTE 08/20/24
Mildly dilated LV with low normal systolic function.
LVEF 50-55% by visual estimation.
LAD territory wall motion abnormality.
Stage III diastolic dysfunction suggestive of restrictive filling pattern and
increased filling pressures.
Normal right ventricular size and function.
Severe mitral regurgitation with anteriorly directed jet likely from torn
chordae resulting in prolapse/flail of the posterior leaflet of the mitral
valve.
Severe aortic regurgitation.
Estimated pulmonary artery pressure of 40-45 mmHg. Assuming a right atrial
pressure of 8 mmHg.
No prior study for comparison.
RHC/LHC 08/20/24
HEMODYNAMIC DATA
LV 93/7 (EDP 22) mmHg
AO 91/50 (mean 68) mmHg
CORONARY ANGIOGRAPHY
Dominance: right
LM: large and normal
LAD: large vessel giving rise to a large ramus/D1, moderate caliber D2, and wrapping around the apex. There is a hazy 80% stenosis in the proximal LAD just before D2 and a 50% stenosis after D2.
LCx: gives rise to a single moderate caliber branching marginal. There are mild luminal irregularities.
RCA: large vessel giving rise to a moderate-caliber RPDA and large RPL system. Trivial luminal irregularities.
Physical Exam
Vital Signs/Labs
Vital Signs
Temp Pulse Resp BP Pulse Ox
98 F 74 24 113/63 95
08/28/24 07:44 08/28/24 10:30 08/28/24 08:45 08/28/24 10:03 08/28/24 07:54
08/27/24 08/28/24 08/29/24
06:59 06:59 06:59
Actual Weight 62 kg 63.1 kg
08/28/24 03:07
08/28/24 03:07
PT 15.1 Sec (11.4-14.6) H 08/25/24 04:28
INR 1.21 08/25/24 04:28
APTT 49.7 Sec (23.4-35.0) H 08/24/24 20:28
Magnesium 2.2 mg/dl (1.6-2.3) 08/28/24 03:07
Triglycerides 50 mg/dl (10-149) 09/23/24 05:59
LDL Cholesterol, Calc 72 mg/dl 08/20/24 05:59
VLDL Cholesterol, Calc 10 mg/dl (0-30) 08/20/24 05:59
HDL Cholesterol 61 mg/dl 08/20/24 05:59
08/19/24
01:22
Itl-D-Aafjlthqglw Pept [id number]
Physical Exam
Constitutional: No acute distress and Comfortable
Cardiovascular: Rhythm & rate is regular, JVD pressure is normal, Systolic murmur absent, Diastolic murmur absent and Pedal edema present (Trace bilaterally)
Respiratory: Respiratory effort normal, Lungs clear to auscul., Wheeze Absent, Crackles Absent and Rhonchi Absent
Neuro/Psych: AO x 3
Data Reviewed
-
Date of Service: August 28, 2024
EKG: Other ( sinus on telemetry)
--- NOTE | 2024-08-28 12:05 | PTCARENOTE ---
VS obtained, assessment stable. Patient assisted to bathroom x 1 assist and rolling walker. Settled to chair, daughter at bedside for visit.
--- NOTE | 2024-08-28 12:28 | W.PN.INTV ---
Today's Communication / Plan
Recommendations
Doing well now, stable on RA
Off pressors, lines are discontinued
PT/OT evals, discharge planning to SNF
Transfer process initiated for telemetry, we will sign off upon transfer
Assessment
-
79-year-old female non-smoker with a PMHx of GERD, CAD with history of [place], anxiety/depression and valvular heart disease who presented on 08/19/2024 with 3-4 weeks of intermittent shortness of breath + chest pain. Initial troponin was 3.31 with an
elevated proBNP of 12,500. Initial EKG showed NSR with occasional lateral PVCs. She was admitted to the IVU and treated for ACS + acute decompensated heart failure. Echo showed stage III diastolic dysfunction with preserved LVEF, LAD territory
WMA, with severe MR and severe AI. LHC performed on 08/20/2024 showed single-vessel CAD with 80% stenosis in the proximal LAD and elevated LVEDP at [address] surgery consulted and on 08/24/2024 she underwent CABG x 2 with radical mitral valve
repair, bioprosthetic AVR + TV repair with GUILHERME-exclusion with a 35mm clip. Patient transferred to the CVICU postoperatively with gasket winder services consulted for additional management/recommendations.
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
Impression:
#CAD c/b NSTEMI s/p CABG x 2
#Severe MR with prolapse/flail P1 segment, severe AI + moderate TR with dilated annulus s/p radical MV repair, bioprosthetic AVR + TV repair with GUILHERME�exclusion (POD #2)
#Acute decompensated heart failure/acute HFmrEF with diastolic heart failure
#Acute anemia
#Acute thrombocytopenia
#Hypoglycemia
#History of anxiety/depression
#GERD
Plan:
Patient was successfully extubated to nasal cannula on 08/24/2024; now currently on room air
O2 can be weaned to off
prn nebulized bronchodilators - not currently bronchospastic
Pulmonary artery catheter discontinued
Weaned off pressors
Maintain MAP>65
Replete electrolytes with K>4, Mg>2
Monitor volume status and diurese PRN
Trend I/O, daily weight, sCr and sNa; keep net negative as tolerated
Wean off bumex and milrinone per team
Chest tube discontinued
Monitor hemoglobin
Monitor platelet count and coags
Transfuse blood products as needed to maintain Hb>7g/dL, plt>50k (given post-operative status)
- She was given 2 units PRBC on 08/25/2024; otherwise she has been given a total of 3 PRBC, 4 units FFP and 2 units platelets
Further postop care per team
Monitor blood sugar to maintain euglycemia with goal BG 140-180
Insulin drip per protocol --> insulin drip now off
Continue insulin SQ to maintain BG goal as above
Aspiration precautions
Encourage IS 10x/hr for at least 4 hrs a day
Cardiac rehab consult
DVT prophylaxis
Early nutrition
Early mobilization
Data:
Transesophageal echocardiogram 08/24/2024): Intra-operative. Low-normal left ventricular systolic function with LVEF of 50-55%. The apical anterior and anteroseptal herrera are hypokinetic. Normal right ventricular systolic function. Severe mitral
regurgitation with prolapse/flail P1 segment. Severe aortic regurgitation with calcified, restricted leaflets. Moderate tricuspid regurgitation with dilated annulus. Normal left atrial appendage. Grade III atheromatous disease of the aortic arch.
CXR 08/25/2024: Stable postoperative changes with interval removal of endotracheal tube; no pneumothorax. Mild retrocardiac atelectasis
CXR 08/26/2024: Stable postoperative changes with retrocardiac atelectasis at the left lung base; no pneumothorax
-----
Critical Care time 31 mins -- The patient is admitted for acute critical illness for the treatment of vital organ failure and/or prevention of further life-threatening conditions. Total care includes time spent in review of history, physical exam,
medications, hemodynamic/ventilator parameters, laboratory data, imaging and discussion with house staff, pharmacy, respiratory therapy, mortgage underwriter, and nursing.
Subjective Dataa
Subjective Data
Date of Service:
Date of Service: August 28, 2024
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
Subjective:
Doing well, stable on RA
No new complaints
Lines are removed
Objective Data
Data Reviewed
Vital Signs / I&O / Oxygen:
Vital Signs
Temp Pulse Resp BP Pulse Ox
98.2 F 77 17 99/74 95
08/28/24 12:04 08/28/24 12:04 08/28/24 12:04 08/28/24 12:01 08/28/24 12:04
Intake and Output
08/27/24 08/28/24 08/29/24
06:59 06:59 06:59
Intake Total 319.5 / 319.5 1719.8 / 1719.8 300 / 300
Output Total 2475 / 2475 3600 / 3600 100 / 100
Balance -2155.5 / -2155.5 -1880.2 / -1880.2 200 / 200
SaO2 [CPAP/PSV] 99
SaO2 [SIMV] 100
SaO2 95
Nasal Cannula flow liters per 1
minute
Physical Exam
General: Respiratory Distress (negative), Comfortable, Chills (negative) and Sweats (negative)
HEENT: Normocephalic, Anicteric and Moist Mucous Membranes
Cardiovascular: S1-S2, Regular Rhythm and Peripheral Edema (negative)
Respiratory: Clear, Wheeze (negative), Crackles (negative), Rhonchi (negative) and Non-Labored Respirations
GI: Soft, Non Distended, Non Tender and Normal Bowel Sounds
Neurology: Awake, Alert, Oriented and No Motor Deficits
Skin: Warm, Dry, Jaundice (negative) and Rash (negative)
Labs/Micro/Reports
Lab Data
08/28/24 03:07
08/28/24 03:07
[2024-08-28] MEDS: NSS IV (16:01)
[2024-08-28] MEDS: BUMEX 1 MG IV (16:27)
[2024-08-28] MEDS: LIPITOR 40 MG PO (17:00)
[2024-08-28] MEDS: KCL 40 MEQ PO (20:09)
--- NOTE | 2024-08-28 20:47 | PTCARENOTE ---
Assumed care of patient at 1900. Patient found in bed at time at time of assessment. Patient is AOx4, follows commands appropriately, moves all extremities. Lung sounds are diminished throughout, saO2 96% on RA. Heart sounds have a regular rate and
rhythm, patient is SR on the monitor, normal palpable radial pulses and weak but palpable pedal pulses. +1 BLE edema is noted. Patient has active BS throughout all four quadrants, patient reports multiple BMs during day, patient is voiding in the
bathroom. There is a sternal incision approx with surg adhesive NIMISHA, CT wounds with 4x4 gauze dressing that is CDI, R groin puncture approx BIT SANDER, and RLE incision approx BIT SANDER. Patient has R AC PIV available for intermittent infusion. VSS. No c/o pain.
Patient is stable.
[2024-08-28] MEDS: ATIVAN 0.5 MG PO (22:48)
[2024-08-29] VITALS (14 sets, daily range): BP systolic 94–126; BP diastolic 59–84; PULSE 78; O2SAT 97; BMI 22.0
--- NOTE | 2024-08-29 | PTCARENOTE ---
Patient reassessed. VSS. Patient ambulating to bathroom to void without difficulty standby assist. Remains SR on the monitor.
[2024-08-29 04:21] LABS: Ionized Calcium 1.14 mMOL/L (1.15-1.33)
[2024-08-29 04:35] LABS: Hematocrit 31.6 % (37.0-47.0); Hemoglobin 10.6 g/dL (12.0-16.0); Mean Corp Hgb Conc. 33.5 g/dL (33.0-37.0); Mean Corpuscular Volume 86.6 fL (81.0-99.0); Mean Platelet Volume 9.5 fL (7.4-10.4); Platelet Count 265 10^3/uL (130-400); Red Blood Cell Count 3.65 10^6/uL (4.20-5.40); Red Cell Dist. Width 14.2 % (11.5-14.5)
--- NOTE | 2024-08-29 04:42 | PTCARENOTE ---
Patient reassessed. Remains SR on the monitor. VSS. AM hygiene care provided. AM labs obtained. Noted low iCa on morning labs CT PA provided orders for repletion awaiting medication from pharmacy. Patient is stable.
[2024-08-29 04:49] LABS: Blood Urea Nitrogen 20 mg/dl (7-17); Calcium 8.6 mg/dl (8.4-10.2); Carbon Dioxide 32 mmol/L (22-30); Chloride 96 mmol/L (98-107); Estimated Creatinine Clearance 52 ml/min; Glucose 105 mg/dl (70-99); Magnesium 2.4 mg/dl (1.6-2.3); Potassium 4.7 mmol/L (3.5-5.1); Sodium 135 mmol/L (135-145); eGFR > 60.00
[2024-08-29] MEDS: CALCIUM GLUCONATE 130 MG IV (05:18)
--- NOTE | 2024-08-29 05:49 | W.PN.CT ---
Today's Communication / Plan
-
-pod #5
-no significant issues overnight, feeling well, no complaints
-no drips
-repleted Ca
-s/p Echo 08/28: EF 45-50%, well functioning valves with mild paravalvular AR
-continue current meds (ASA, Plavix, Lipitor, Lopressor, Lisinopril, Protonix). Holding Amio
-monitor BP
-Encourage use of IS
-OOB into chair/Ambulate as tolerated
-continue PT/OT -noted recommendation for acute rehab
-appreciate everyone's input
-will need pw cut prior to d/c home
Assessment / Plan
-
Assessment:
-S/P Standard sternotomy with aortic and bicaval cannulation/ CABG x 2 [SHIRLEY to LAD, aorta to reverse saphenous vein graft to diagonal]/Endoscopic harvest of the right lower extremity for vein/Radical mitral valve repair [32 mm band annuloplasty, 2
pairs of [place]-Misael cords to the P1 flail segment, cleft closure between P1 and P2 and P2 and P3, free margin remodeling]/Aortic valve replacement [25 mm bioprosthesis]/Tricuspid valve repair [28 mm band angioplasty]/ Left atrial appendage exclusion
[35 mm clip]/ Evacuation of bilateral pleural effusions, by Dr. Gipson, 08/24/24, pod#5
-Acute systolic and diastolic heart failure
-Acute NSTEMI (peak trop, 5.64)
-Single-vessel coronary artery disease involving the LAD
-Takotsubo syndrome
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
-Moderately severe aortic valve insufficiency with stenosis and sclerosis
-Moderate TR with dilated annulus
-Pre-LVEF 45-50% with some RWMA mostly at the apex and septal wall, post LVEF 45% with continued septal and apical wall motion abnormalities
-LVEF 50-55% per intraop KANCHAN
-Bilateral pleural effusion
-UTI
-Hiatal hernia
-Splenic artery aneurysm
-Diverticulosis
-GERD
-Depression/anxiety
-Acute intraop/postop blood loss/Anemia (transfused 3u PRBC's)
-Acute intraop/postop thrombocytopenia (transfuse 2 {5 pk} plts)
-Acute intraop/postop coagulopathy (transfused 4u FFPs)-
-Acute postop hypovolemia with subsequent hypervolemia
-Acute postop atelectasis
-Acute postop PVC's
-postop Echo 08/28/24:
Mildly reduced left ventricular systolic function with an EF of 45 to 50%. Hypokinesis of the mid to apical anteroseptal wall. Mild dyskinesis of the apex.
Well-seated, normally functioning bioprosthetic aortic valve. Mild paravalvular aortic regurgitation seen.
Status post mitral valve repair with peak and mean gradient of 10/4 mmHg, no significant regurgitation seen.
Status post tricuspid valve repair without any residual tricuspid regurgitation seen.
Compared to the prior echo on 08/20/2024, the ejection fraction has decreased from 50 to 55% to 45 to 50%. The aortic valve has been replaced, the mitral valve has been repaired, and the tricuspid valve has been repaired.
Discussed patient care with: Nursing and Care Team
Subjective
Procedure
-S/P Standard sternotomy with aortic and bicaval cannulation/ CABG x 2 [SHIRLEY to LAD, aorta to reverse saphenous vein graft to diagonal]/Endoscopic harvest of the right lower extremity for vein/Radical mitral valve repair [32 mm band annuloplasty, 2
pairs of [place]-Misael cords to the P1 flail segment, cleft closure between P1 and P2 and P2 and P3, free margin remodeling]/Aortic valve replacement [25 mm bioprosthesis]/Tricuspid valve repair [28 mm band angioplasty]/ Left atrial appendage exclusion
[35 mm clip]/ Evacuation of bilateral pleural effusions, by Dr. Gipson, 08/24/24
-
Date of Service: August 29, 2024
Objective Data
-
Lab Results
08/28/24 03:07
08/28/24 03:07
PT 15.1 Sec (11.4-14.6) H 08/25/24 04:28
INR 1.21 08/25/24 04:28
APTT 49.7 Sec (23.4-35.0) H 08/24/24 20:28
Vital Signs
Vital Signs
Temp Pulse Resp BP Pulse Ox
98.4 F 80 20 109/62 74
08/28/24 19:00 08/28/24 20:45 08/28/24 19:00 08/28/24 20:16 08/28/24 20:16
CT Intake/Output/Weight
08/28/24 08/28/24 08/29/24
06:59 18:59 06:59
Intake Total 550 / 550
Output Total 200 / 3600 500 / 800 300 / 800
Balance -200 / -1880.2 50 / -250 -300 / -250
SaO2: 74
Physical Exam
-
General: Awake and AOx3
Cardiovascular: Regular rate & rhythm, No Murmurs and No Rub
Respiratory: Decreased Breath Sounds
Sternum: Stable
Incision: Clean, Dry and Intact
Abdomen: soft, nontender, nondistended, + bowel sounds, +BM
Extremities: Edema trace b/l (2+ DP b/l)
Data Reviewed
-
Lab Results: Results Reviewed
Medications: Active Meds Reviewed
Chest X-Ray: Report Reviewed and Image Reviewed
ECG: Report Reviewed and Image Reviewed
[2024-08-29] MEDS: TYLENOL 1000 MG PO ×3 (06:21→22:17)
[2024-08-29] MEDS: SENOKOT-S PO ×2 (07:19→20:22)
[2024-08-29] MEDS: NSS IV (07:20)
--- NOTE | 2024-08-29 07:47 | W.PN.CD ---
Today's Communication / Plan
-
- PT/OT
- IS
- Holding Amiodarone and Bumex now. Continue Lisinopril.
Impression / Plan
-
BACKGROUND: 79F with history of mitral regurgitation presents to ED with SOB and chest pressure, found to have NSTEMI with cath demonstrating culprit LAD disease, and echo demonstrating severe MR and severe AR. She is now s/p surgical MVR/AVR/TVr/
CABG.
NSTEMI s/p CABG x 2 [SHIRLEY to LAD, aorta to reverse saphenous vein graft to diagonal]
-Severe mitral regurgitation with P1 flail and severe AI S/P Radical mitral valve repair [32 mm band annuloplasty, 2 pairs of [place]-Misael cords to the P1 flail segment, cleft closure between P1 and P2 and P2 and P3, free margin remodeling]
-Severe aortic regurgitation S/P Aortic valve replacement [25 mm bioprosthesis]
-Tricuspid regurgitation S/P Tricuspid valve repair [28 mm band angioplasty]
-Left atrial appendage exclusion [35 mm clip]
-Pre-LVEF 45-50% with some RWMA mostly at the apex and septal wall, post LVEF 45% with continued septal and apical wall motion abnormalities
-ECHO 08/28/24: LVEF 45% -Hypokinesis of the mid to apical anteroseptal wall. Mild dyskinesis of the apex. Mild Paravalvular AI.
-Off Milrinone and Bumex.
-On Bumex prn now.
-On Metoporlol and lisinopril
-On ASA, Plavix and Lipitor
Off Amiodarone
Mixed ischemic and non-ischemic cardiomyopathy
-Follow daily weight
-Consider SGLT2 at a later date.
-Trend daily weight, I/O, and BMP
-Heart failure education
Splenic artery aneurysm, seen on CT
Anxiety and bipolar, on Lamictal
Subjective:
Feeling better. OOB to chair.
TTE 08/20/24
Mildly dilated LV with low normal systolic function.
LVEF 50-55% by visual estimation.
LAD territory wall motion abnormality.
Stage III diastolic dysfunction suggestive of restrictive filling pattern and
increased filling pressures.
Normal right ventricular size and function.
Severe mitral regurgitation with anteriorly directed jet likely from torn
chordae resulting in prolapse/flail of the posterior leaflet of the mitral
valve.
Severe aortic regurgitation.
Estimated pulmonary artery pressure of 40-45 mmHg. Assuming a right atrial
pressure of 8 mmHg.
No prior study for comparison.
RHC/LHC 08/20/24
HEMODYNAMIC DATA
LV 93/7 (EDP 22) mmHg
AO 91/50 (mean 68) mmHg
CORONARY ANGIOGRAPHY
Dominance: right
LM: large and normal
LAD: large vessel giving rise to a large ramus/D1, moderate caliber D2, and wrapping around the apex. There is a hazy 80% stenosis in the proximal LAD just before D2 and a 50% stenosis after D2.
LCx: gives rise to a single moderate caliber branching marginal. There are mild luminal irregularities.
RCA: large vessel giving rise to a moderate-caliber RPDA and large RPL system. Trivial luminal irregularities.
Physical Exam
Vital Signs/Labs
Vital Signs
Temp Pulse Resp BP Pulse Ox
97.8 F 74 20 100/59 94
08/29/24 03:00 08/29/24 07:00 08/29/24 03:00 08/29/24 04:00 08/29/24 04:00
08/28/24 08/29/24 08/30/24
06:59 06:59 06:59
Actual Weight 63.1 kg 61.8 kg
08/29/24 04:14
08/29/24 04:14
PT 15.1 Sec (11.4-14.6) H 08/25/24 04:28
INR 1.21 08/25/24 04:28
APTT 49.7 Sec (23.4-35.0) H 08/24/24 20:28
Magnesium 2.4 mg/dl (1.6-2.3) H 08/29/24 04:14
Triglycerides 50 mg/dl (10-149) 08/20/24 05:59
LDL Cholesterol, Calc 72 mg/dl 08/20/24 05:59
VLDL Cholesterol, Calc 10 mg/dl (0-30) 08/20/24 05:59
HDL Cholesterol 61 mg/dl 08/20/24 05:59
08/19/24
01:22
Eki-E-Rzhalljryru Pept [id number]
Physical Exam
Constitutional: No acute distress and Comfortable
EENT: Anicteric and Moist mucous membranes
Cardiovascular: Rhythm & rate is regular, Pedal edema is absent and JVD pressure is normal
Respiratory: Respiratory effort normal and Lungs clear to auscul.
GI: Soft, Non tender and Normal bowel sounds
Neuro/Psych: Alert, Oriented and AO x 3
Data Reviewed
-
Date of Service: August 29, 2024
Medical Decision Making: Reviewed Test Results and Independent Historian Assessment
EKG: Tracing Personally Visualized and interpreted
Echo: Report Reviewed by me
Labs: Labs Reviewed by me
Old Records: Reviewed
Critical Care Time (in minutes): 35
--- NOTE | 2024-08-29 08:15 | PTCARENOTE ---
Assumed care of patient. Walking rounds completed with previous RN. Pt assessed while she was lying in bed. Pt alert and oriented x4. Denies pain, shortness of breath, and nausea. ORTEGA with equal strength throughout. Generalized weakness. NSR on tele
with rates in the 70s. BP stable 105/61. Heart tones audible. Bilateral radial and DP pulses palpable. +1 edema to b/l lower extremities. POX 94% on RA. Lungs diminished in the bases. No cough noted. Abdomen soft, round, nontender. +BS. +BM last
night. Due to void for this RN. Sternal incision approximated with skin glue, ecchymotic/red at top of incision. Old chest tube sites covered. Epicardial AV wires insulated. Right groin puncture site approximated with skin glue, COLD ROLLER. Right SVG
harvest site approximated with skin glue, COLD ROLLER. Right AC PIV intact. See MAR for medication administration. See worklist for complete nursing assessment. Plan of care reviewed and patient in agreement.
[2024-08-29] MEDS: DIAMOX 250 MG PO (08:44)
[2024-08-29] MEDS: KCL PO (08:44)
[2024-08-29] MEDS: NEURONTIN 100 MG PO ×2 (08:45→15:39)
[2024-08-29] MEDS: LOW STRENGTH ASPIRIN 81 MG PO (08:45)
[2024-08-29] MEDS: PROTONIX 40 MG PO (08:45)
[2024-08-29] MEDS: PLAVIX 75 MG PO (08:45)
[2024-08-29] MEDS: LAMICTAL 200 MG PO ×2 (08:45→20:21)
[2024-08-29] MEDS: MAGNESIUM OXIDE 500 MG PO ×2 (08:45→20:21)
[2024-08-29] MEDS: LOPRESSOR 12.5 MG PO ×2 (08:45→20:21)
[2024-08-29] MEDS: FLUSH (NSS) 1 FLUSH IV (08:45)
[2024-08-29] MEDS: ZESTRIL 2.5 MG PO (09:12)
[2024-08-29] MEDS: BUMEX 2 MG PO (11:35)
--- NOTE | 2024-08-29 12:00 | PTCARENOTE ---
Pt reassessed. VSS. SR on tele with rates in the 70s. BP stable 105/60. POX 96% on RA. Surgical sites stable. Pt voiding clear yellow urine in the toilet. Ambulating in the room with rolling walker. Tolerating. no other acute changes from previous
assessment.
--- NOTE | 2024-08-29 15:44 | CM ---
CM following for DC planning needs.
Plan is for rehab @ [facility]/.
Spoke w/ [facility], liaison-bed available Thurs. if medically stable.
Will need PMR evaluation prior to transfer to [facility]. PMR eval ordered, awaiting eval.
Met w/ patient at bedside to provide update.
CM to follow.
--- NOTE | 2024-08-29 15:51 | PTCARENOTE ---
VS obtained, assessment stable. Patient assisted to bathroom, personal hygiene performed. Worked w/OT. Resting in recliner.
[2024-08-29] MEDS: LIPITOR 40 MG PO (17:16)
--- NOTE | 2024-08-29 17:54 | CON.MD ---
Consultation - Medical
-
Referring Provider:�Dr. Zak Gipson
Chief Complaint:�Status post CABG
�
History of Present Illness:�79-year-old female with PMH (as below) presented to [facility] on 08/19/2024 with shortness of breath and shoulder discomfort. She had 3-week history of worsening shortness of breath with activity. Found to have
an NSTEMI and started on IV heparin. Also with acute heart failure with pulmonary edema on exam and CT scan with markedly elevated BNP. Echocardiogram with EF 50-55% and stage III diastolic dysfunction with severe mitral regurg and severe aortic
regurg. CT PE study�with small to moderate bilateral pleural effusions, no pericardial effusion. Seen by CT surgery with likely need for CABG and AVR/MVR. Cardiac catheterization 08/20 noting single-vessel obstructive CAD in a right dominant
system. KANCHAN on 08/22/2024 with EF 45-50%. Status post 08/24/2024 CABG x 2 with radical mitral valve repair and bioprosthetic aortic valve replacement, tricuspid valve repair and left atrial appendage exclusion. Echocardiogram 08/28 with EF of 45-50%.
Overall feeling better. Still with with significant fatigue with activity. Has some continued chest pain postsurgery, increased with movement, coughing.
�
Past Medical History:�Anxiety, depression, GERD
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
Family History:�CHF, cardiomyopathy
�
Social History:�
Functional Level Premorbidly:�Independent with all activities�
Functional Level Currently:�Min assist ADLs and toilet transfer. Mod assist sit to stand, min assist stand to sit. Ambulating min assist with max verbal cues 15 feet x 2 with rolling walker. Therapy suggesting acute inpatient rehabilitation.
�
Tobacco:�Denies, smoked in the home for many years
Alcohol:�Denies�
Drug use:�Denies�
�
Lives with:�Daughter and her family
24-hour assistance available:�Yes daughter works from home
Number of floors:�2
# steps to enter:�2
# steps to second floor: Full flight
Potential First floor set up:�
Driving:�Yes
Occupation:�Retired
�
�
Allergies:�
Allergy/AdvReac Type Severity Reaction Status Date / Time
No Known Allergies Allergy Verified 08/19/24 03:05
�
Review of Systems:�
Constitutional: (x) abNormal _fatigue
Eye: (x) Normal _
Ear/Nose/Throat: (x) Normal _
Respiratory: (x) Normal _
Cardiovascular: (x) abNormal _systolic and diastolic heart failure with shortness of breath and fatigue improving
Gastrointestinal: (x) Normal _
Genitourinary: (x) Normal _
Musculoskeletal: (x) abNormal _chest pain
Integumentary: (x) Normal _
Neurologic: (x) Normal _
Psychiatric: (x) Normal _
Endocrine: (x) Normal _
Hematologic/Lymphatic: (x) Normal _
Allergic/Immunologic: (x) Normal _
�
Medications:�
Active Current Visit Medication List
Category Date Time Status
0.9% Sodium Chloride 500 ml [Nss] 500 ml Med 08/24/24 13:23 Active
IV CORDIS
Acetaminophen [Tylenol/Feverall] Med 08/24/24 13:23 Active
650 mg RECTAL Q4HPRN PRN
Acetaminophen [Tylenol] Med 08/24/24 14:00 Active
1,000 mg PO TID@0600,1400,2200
Acetaminophen [Tylenol] Med 08/24/24 13:23 Active
650 mg PO Q4HPRN PRN
Amiodarone [Pacerone] Med 08/24/24 16:00 Hold
200 mg PO TID
Aspirin Med 08/25/24 08:00 Active
300 mg RECTAL DAILYPRN PRN
Aspirin Chewable [Low Strength Aspirin] Med 08/25/24 08:00 Active
81 mg PO DAILY
Atorvastatin [Lipitor] Med 08/19/24 18:00 Active
40 mg PO QPM
Bisacodyl [Dulcolax] Med 08/24/24 13:23 Active
10 mg RECTAL DAILYPRN PRN
Bumetanide [Bumex] Med 08/29/24 11:15 Active
2 mg PO DAILY
Clopidogrel Bisulfate [Plavix] Med 08/25/24 08:00 Active
75 mg PO DAILY
Cyclobenzaprine HCl [Flexeril] Med 08/24/24 13:23 Active
5 mg PO Q8HPRN PRN
Dextrose 50%-Water [Dextrose 50% Syringe] Med 08/25/24 12:46 Active
12.5 grams IV [id number] PRN
Docusate W/Senna [Senokot-S] Med 08/24/24 20:00 Active
1 tablet PO Q12
Flush (0.9% Sodium Chloride) [Flush (Nss)] Med 08/24/24 15:00 Active
See Dose Instructions IV PER PROTOCOL
Gabapentin [Neurontin] Med 08/24/24 16:00 Active
100 mg PO TID
Glucagon [GlucaGen] Med 08/25/24 12:46 Active
1 mg IM PRN PRN
HYDROmorphone [Dilaudid] Med 08/24/24 13:23 Active
0.25 mg IV Q3HPRN PRN
Lamotrigine [Lamictal] Med 08/19/24 08:00 Active
200 mg PO BID
Lidocaine [Lidocaine 4% Patch] Med 08/25/24 08:00 Active
1 patch TOPICAL DAILY
Lisinopril [Zestril] Med 08/27/24 09:00 Active
2.5 mg PO DAILY
Lorazepam [Ativan] Med 08/19/24 06:15 Active
0.5 mg PO TIDPRN PRN
Magnesium Hydroxide [Milk of Magnesia] Med 08/24/24 13:23 Active
30 ml PO BIDPRN PRN
Magnesium Oxide Med 08/25/24 08:00 Active
500 mg PO BID
Metoprolol [Lopressor] Med 08/25/24 08:00 Active
12.5 mg PO Q12
Ondansetron Injectable [Zofran] Med 08/24/24 13:23 Active
4 mg IV Q8HPRN PRN
Oxycodone [Roxicodone] Med 08/24/24 13:23 Active
2.5 mg PO Q4HPRN PRN
Oxycodone [Roxicodone] Med 08/24/24 13:23 Active
5 mg PO Q4HPRN PRN
Pantoprazole [Protonix] Med 08/25/24 08:00 Active
40 mg PO DAILY
Potassium Chloride [KCl] Med 08/27/24 08:00 Active
40 meq PO BID
Remove Patch [Remove Lidocaine Patch] Med 08/25/24 20:00 Active
1 patch REMOVE DAILY@1999
Vitals:�
Temp Pulse Resp BP Pulse Ox
97.9 F 83 18 104/84 95
08/29/24 15:50 08/29/24 15:50 08/29/24 15:50 08/29/24 15:48 08/29/24 15:50
Height 5 ft 6 in
Actual Weight 61.8 kg
Body Mass Index (BMI) 22.0
�
Physical Exam:�
General Appearance/Observation: Well-developed, well-nourished female in no apparent distress.�
Pain/Comfort Assessment: Moderate chest pain with activity
Mood/Affect: Appropriate�
�
Integumentary/Operative Site:�Sternotomy incision clean dry and intact with some mild ecchymosis. Drain sites with dressing intact.
�
Eyes: Conjunctiva/Lids: normal���� Pupils: pupils equal round and reactive to light and Accommodation�
Ears/Nose/Throat: oral mucosa moist,� throat clear.������������ Lips/Teeth/Gums: normal�
Cardiovascular: Heart: regular, no murmur�
Pulses: dorsalis pedis 2+ bilaterally�
Respiratory: Respiratory Effort/Chest Expansion: normal������� Auscultation: Clear to auscultation bilaterally�
Gastrointestinal: abdomen not tender, no distension, normal abdominal bowel sounds
Genitourinary: No Quinones�
Extremities:�Edema: Mild bilateral nonpitting edema�cyanosis: None�Trophic�changes: None
�
Neurology Exam:
Orientation: Alert, Oriented to self, Time, Place�
Memory: Intact for recent medical concerns
Comprehension: Intact
Two step command: Intact
Cranial Nerves:
�� CNII:�Pupillary light reflex: Intact����Visual Field: Intact
�� CN III, IV, : Extraocular muscles: Intact�
�� CN V:�Facial Sensation�at�Forehead: Intact,�Maxilla: Intact,�Mandible: Intact
�� CN VII:�Facial movement: Left lip/midface asymmetry
�� CN VIII:�Hearing: Normal
�� CN IX/X:�Speech & swallow: Normal,�Position of Uvula: Midline
�� CN XI:�Shoulder shrug: Symmetric
�� CN XII:�Tongue protrusion: Midline
Sensory:
�� Light touch: Intact in bilateral upper and lower extremities
�
Reflexes:
�� Biceps: 2+ bilaterally
�� Brachioradialis: 2+ bilaterally
�� Triceps: 2+ bilaterally
�� Patellar: 2+ bilaterally
�� Achilles: 2+ bilaterally
�� Babinski: Down going bilaterally
�� Clonus: None
�� Leatha: Negative bilaterally�
Cerebellar: Dysmetria/Ataxia: None�
Musculoskeletal: Motor: (Manual muscle scale 0-5)�
Muscle SA EF WE EE FF FA HF KE DF EHL PF
Right� >3 >3 5 >3 5 4 3+ 5 5 5 5
Left >3 >3 5 >3 5 4 3+ 5 5 5 5
�
Tone: Normal in all extremities�
Range of Motion: Diffuse arthritic changes
�
Lab Results
Laboratory Data
08/29/24 04:14
08/29/24 04:14
PT 15.1 Sec (11.4-14.6) H 08/25/24 04:28
INR 1.21 08/25/24 04:28
APTT 49.7 Sec (23.4-35.0) H 08/24/24 20:28
Total Bilirubin 1.1 mg/dl (0.2-1.3) 08/21/24 05:10
Direct Bilirubin 0.2 mg/dl (0.0-0.4) 08/21/24 05:10
AST 28 U/L (14-36) 08/21/24 05:10
ALT 18 U/L (0-35) 08/21/24 05:10
Alkaline Phosphatase 60 U/L (38-126) 08/21/24 05:10
Total Protein 6.0 g/dl (6.3-8.2) L 08/21/24 05:10
Albumin 3.2 g/dl (3.5-5.0) L 08/21/24 05:10
�
Diagnostic Results:�as per HPI�
�
Assessment
79-year-old left-handed F PMH (Anxiety, depression, GERD) with 08/19/2024 NSTEMI, acute systolic and diastolic heart failure severe mitral and aortic regurgitation, S/P 08/24/2024 CABG x 2 with radical mitral valve repair and bioprosthetic aortic
valve replacement, tricuspid valve repair and left atrial appendage exclusion resulting in ADL and amatory dysfunction.
Plan�
PM&R�PT/OT to increase independence with ADLs, improve balance, coordination, endurance, strength, mobility, community reintegration, decreased burden of care on others and family education.�
�
NSTEMI, CAD, S/P CABG x 2: Sternal precautions.� Aspirin, Plavix, lisinopril 2.5 mg, statin, BP control.� Monitor incision, pain control.������������������������������������
Acute systolic and diastolic CHF: EF 45-50%, beta kin, Bumex monitor fluid status�
Bioprosthetic aortic valve replacement, mitral valve and tricuspid valve repair with atrial appendage exclusion:
Postoperative anemia: Improving, monitor.�
Anxiety/depression: Psychology consult.� Monitor mood, adjust Lamictal as needed.� Ativan as needed
Skin: monitor for pressure sores/rashes/lesions.�
Pain: acetaminophen or oxycodone as needed.� Gabapentin 1 mg 3 times daily. Flexeril as needed for spasm.
Bowel: Colace and Senna, PRN bisacodyl.�
Bladder: Time void, PVRs, PRN straight cath.�
GI Prophylaxis: Pantoprazole�
DVT Prophylaxis: Mechanical, please, comment on when DVT prophylaxis can start
Pulmonary: Incentive spirometry�
Safety: Continue to reinforce assistance with all transfers.�
Code Status:� Full code
Dispo�(date/plan/equipment needs): Home with family care.� Social history reviewed.�
Functional and Medical Goals:�Modified Independent with ADL�s, ambulation, transfers�
Discharge Destination: Acute inpatient rehabilitation�
Summary of recommendations:
-�Discharge Destination:�Acute inpatient rehabilitation�
NSTEMI, CAD, S/P CABG x 2: Sternal precautions.� Aspirin, Plavix, lisinopril 2.5 mg, statin, BP control.� Monitor incision, pain control.������������������������������������
Acute systolic and diastolic CHF: EF 45-50%, beta kin, Bumex monitor fluid status�
Bioprosthetic aortic valve replacement, mitral valve and tricuspid valve repair with atrial appendage exclusion:
DVT Prophylaxis: Mechanical, please comment on when DVT prophylaxis can start
�
Thank you for allowing me to care for your patient. Please contact me with any questions or concerns.
--- NOTE | 2024-08-29 20:00 | PTCARENOTE ---
assumed care of pt from previous RN. pt A&Ox4, resting in chair at time of assessment. SR w/ occasional PACs. temp epicardial A/V wires insulated. POX 98% on RA. abd s/n, +BS. voiding clear, yellow urine. all surgical sites stable. PIV intact. see
worklist for complete nursing assessment, interventions, VS, and I&Os.
[2024-08-29] MEDS: KCL 40 MEQ PO (20:25)
--- NOTE | 2024-08-29 22:30 | PTCARENOTE ---
assessment remains unchanged. VSS. pt assisted to the bathroom. no c/o pain.
[2024-08-30 02:40] VITALS: BP 113/64
--- NOTE | 2024-08-30 03:00 | PTCARENOTE ---
assessment remains unchanged. VSS. AM labs collected and sent.
[2024-08-30 03:27] LABS: Blood Urea Nitrogen 13 mg/dl (7-17); Calcium 8.8 mg/dl (8.4-10.2); Carbon Dioxide 27 mmol/L (22-30); Chloride 99 mmol/L (98-107); Estimated Creatinine Clearance 52 ml/min; Glucose 109 mg/dl (70-99); Potassium 4.6 mmol/L (3.5-5.1); Sodium 137 mmol/L (135-145); eGFR > 60.00
[2024-08-30] MEDS: TYLENOL 1000 MG PO (04:47)
[2024-08-30 04:48] VITALS: BMI 21.5
--- NOTE | 2024-08-30 05:57 | W.PN.CT ---
Today's Communication / Plan
-
-pod #6
-no issues overnight, looks well, ambulates to the bathroom with walker.
-c/o feeling sleepy, weak- will minimize narcotics, changed Gabapentin to bid prn. Pain is controlled with Tylenol
-diuresed well with Diamox and po Bumex on 08/29 (UO 800+/1600+ in 12/24 hrs)
-continue PT/OT
-plan for d/c to [facility] once approved by insurance and bed available
-appreciate everyone's input
Assessment / Plan
-
Assessment:
-S/P Standard sternotomy with aortic and bicaval cannulation/ CABG x 2 [SHIRLEY to LAD, aorta to reverse saphenous vein graft to diagonal]/Endoscopic harvest of the right lower extremity for vein/Radical mitral valve repair [32 mm band annuloplasty, 2
pairs of Elmer-Misael cords to the P1 flail segment, cleft closure between P1 and P2 and P2 and P3, free margin remodeling]/Aortic valve replacement [25 mm bioprosthesis]/Tricuspid valve repair [28 mm band angioplasty]/ Left atrial appendage exclusion
[35 mm clip]/ Evacuation of bilateral pleural effusions, by Dr. Gipson, 08/24/24, pod#6
-Acute systolic and diastolic heart failure
-Acute NSTEMI (peak trop, 5.64)
-Single-vessel coronary artery disease involving the LAD
-Takotsubo syndrome
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
-Moderately severe aortic valve insufficiency with stenosis and sclerosis
-Moderate TR with dilated annulus
-Pre-LVEF 45-50% with some RWMA mostly at the apex and septal wall, post LVEF 45% with continued septal and apical wall motion abnormalities
-LVEF 50-55% per intraop KANCHAN
-Bilateral pleural effusion
-UTI
-Hiatal hernia
-Splenic artery aneurysm
-Diverticulosis
-GERD
-Depression/anxiety
-Acute intraop/postop blood loss/Anemia (transfused 3u PRBC's)
-Acute intraop/postop thrombocytopenia (transfuse 2 {5 pk} plts)
-Acute intraop/postop coagulopathy (transfused 4u FFPs)-
-Acute postop hypovolemia with subsequent hypervolemia
-Acute postop atelectasis
-Acute postop PVC's
-postop Echo 08/28/24:
Mildly reduced left ventricular systolic function with an EF of 45 to 50%. Hypokinesis of the mid to apical anteroseptal wall. Mild dyskinesis of the apex.
Well-seated, normally functioning bioprosthetic aortic valve. Mild paravalvular aortic regurgitation seen.
Status post mitral valve repair with peak and mean gradient of 10/4 mmHg, no significant regurgitation seen.
Status post tricuspid valve repair without any residual tricuspid regurgitation seen.
Compared to the prior echo on 08/20/2024, the ejection fraction has decreased from 50 to 55% to 45 to 50%. The aortic valve has been replaced, the mitral valve has been repaired, and the tricuspid valve has been repaired.
Discussed patient care with: Nursing and Care Team
Subjective
Procedure
-S/P Standard sternotomy with aortic and bicaval cannulation/ CABG x 2 [SHIRLYE to LAD, aorta to reverse saphenous vein graft to diagonal]/Endoscopic harvest of the right lower extremity for vein/Radical mitral valve repair [32 mm band annuloplasty, 2
pairs of Elmer-Misael cords to the P1 flail segment, cleft closure between P1 and P2 and P2 and P3, free margin remodeling]/Aortic valve replacement [25 mm bioprosthesis]/Tricuspid valve repair [28 mm band angioplasty]/ Left atrial appendage exclusion
[35 mm clip]/ Evacuation of bilateral pleural effusions, by Dr. Gipson, 08/24/24
-
Date of Service: August 30, 2024
Objective Data
-
Lab Results
08/29/24 04:14
PT 15.1 Sec (11.4-14.6) H 08/25/24 04:28
INR 1.21 08/25/24 04:28
APTT 49.7 Sec (23.4-35.0) H 08/24/24 20:28
Vital Signs
Vital Signs
Temp Pulse Resp BP Pulse Ox
97.9 F 87 14 126/66 98
08/29/24 22:30 08/29/24 22:27 08/29/24 22:30 08/29/24 22:27 08/29/24 22:32
CT Intake/Output/Weight
08/29/24 08/29/24 08/30/24
06:59 18:59 06:59
Intake Total 480 / 480
Output Total 950 / 1450 800 / 1200 400 / 1200
Balance -950 / -900 -320 / -720 -400 / -720
SaO2: 98
Physical Exam
-
General: Awake and AOx3
Cardiovascular: Regular rate & rhythm, No Murmurs and No Rub
Respiratory: Decreased Breath Sounds
Sternum: Stable
Incision: Clean, Dry and Intact
Extremities: No Edema
Data Reviewed
-
Lab Results: Results Reviewed
Medications: Active Meds Reviewed
Chest X-Ray: Report Reviewed and Image Reviewed
ECG: Report Reviewed and Image Reviewed
--- NOTE | 2024-08-30 07:45 | PTCARENOTE ---
Resumed care of patient. Walking rounds completed. Pt assessed while she was sitting in the chair. Pt alert and oriented x4. Pt unable to rate sternal pain-see MAR. Denies nausea and shortness of breath. ORTEGA with equal strength throughout,
generalized weakness. Ambulates using rolling walker in the room. NSR on tele with rates in the 70s. BP stable. Bilateral radial and DP pulses palpable. +1 edema to b/l lower extremities. POX 96% on RA. Lungs diminished in the bases. Occasional dry
nonproductive cough noted. IS encouraged-1250mL achieved. Abdomen soft, nontender. +BS. +BM yesterday. Pt voiding adequate amounts of clear yellow urine in the toilet. Sternal incision approximated with ecchymosis. Old chest tube sites covered.
Epicardial AV wires insulated. Right groin puncture site approximated with skin glue, NIMISHA, ecchymotic. Right SVG harvest site approximated with skin glue, ecchymotic. Right AC PIV intact. See MAR for medication administration. See worklist for
complete nursing assessment. Plan of care reviewed and patient in agreement.
[2024-08-30 07:49] VITALS: BP 104/63
[2024-08-30] MEDS: PROTONIX 40 MG PO (07:52)
[2024-08-30] MEDS: BUMEX 2 MG PO (07:53)
[2024-08-30] MEDS: KCL PO (07:53)
[2024-08-30] MEDS: LOPRESSOR 12.5 MG PO (07:53)
[2024-08-30] MEDS: LAMICTAL 200 MG PO (07:53)
[2024-08-30] MEDS: MAGNESIUM OXIDE 500 MG PO (07:53)
[2024-08-30] MEDS: PLAVIX 75 MG PO (07:53)
[2024-08-30] MEDS: SENOKOT-S PO (07:53)
[2024-08-30] MEDS: LOW STRENGTH ASPIRIN 81 MG PO (07:53)
[2024-08-30] MEDS: NSS IV (07:53)
[2024-08-30] MEDS: NEURONTIN 100 MG PO (07:53)
[2024-08-30 08:00] VITALS: BP 104/63
[2024-08-30 08:46] VITALS: BP 122/71
--- NOTE | 2024-08-30 08:51 | W.PN.CD ---
Today's Communication / Plan
-
Consider switching bumex to PRN for weight gain starting tomorrow
cont meds
OOB and ambulating as possible, likely d/c to rehab today
Impression / Plan
-
BACKGROUND: 79F with history of mitral regurgitation presents to ED with SOB and chest pressure, found to have NSTEMI with cath demonstrating culprit LAD disease, and echo demonstrating severe MR and severe AR. She is now s/p surgical MVR/AVR/TVr/
CABG.
NSTEMI s/p CABG x 2 [SHIRLEY to LAD, aorta to reverse saphenous vein graft to diagonal]
-Severe mitral regurgitation with P1 flail and severe AI S/P Radical mitral valve repair [32 mm band annuloplasty, 2 pairs of Lysite-Misael cords to the P1 flail segment, cleft closure between P1 and P2 and P2 and P3, free margin remodeling]
-Severe aortic regurgitation S/P Aortic valve replacement [25 mm bioprosthesis]
-Tricuspid regurgitation S/P Tricuspid valve repair [28 mm band angioplasty]
-Left atrial appendage exclusion [35 mm clip]
-Pre-LVEF 45-50% with some RWMA mostly at the apex and septal wall, post LVEF 45% with continued septal and apical wall motion abnormalities
-ECHO 08/28/24: LVEF 45% -Hypokinesis of the mid to apical anteroseptal wall. Mild dyskinesis of the apex. Mild Paravalvular AI.
-Off Milrinone and Bumex.
-On Bumex 2 mg daily, recommend another day of diuresis and then use bumex PRN for weight gain 3 lbs in a day or 5 in a week, she may not need a standing diuretic
-On Metoporlol and lisinopril
-On ASA, Plavix and Lipitor
Off Amiodarone
Mixed ischemic and non-ischemic cardiomyopathy
-Follow daily weight
-Consider SGLT2 at a later date.
-Trend daily weight, I/O, and BMP
-Heart failure education
Splenic artery aneurysm, seen on CT
Anxiety and bipolar, on Lamictal
Subjective:
OOB in chair using ISB, looking fwd to rehab no new CV complaints
TTE 08/20/24
Mildly dilated LV with low normal systolic function.
LVEF 50-55% by visual estimation.
LAD territory wall motion abnormality.
Stage III diastolic dysfunction suggestive of restrictive filling pattern and
increased filling pressures.
Normal right ventricular size and function.
Severe mitral regurgitation with anteriorly directed jet likely from torn
chordae resulting in prolapse/flail of the posterior leaflet of the mitral
valve.
Severe aortic regurgitation.
Estimated pulmonary artery pressure of 40-45 mmHg. Assuming a right atrial
pressure of 8 mmHg.
No prior study for comparison.
RHC/LHC 08/20/24
HEMODYNAMIC DATA
LV 93/7 (EDP 22) mmHg
AO 91/50 (mean 68) mmHg
CORONARY ANGIOGRAPHY
Dominance: right
LM: large and normal
LAD: large vessel giving rise to a large ramus/D1, moderate caliber D2, and wrapping around the apex. There is a hazy 80% stenosis in the proximal LAD just before D2 and a 50% stenosis after D2.
LCx: gives rise to a single moderate caliber branching marginal. There are mild luminal irregularities.
RCA: large vessel giving rise to a moderate-caliber RPDA and large RPL system. Trivial luminal irregularities.
Physical Exam
Vital Signs/Labs
Vital Signs
Temp Pulse Resp BP Pulse Ox
97.8 F 75 16 122/71 96
08/30/24 08:00 08/30/24 08:46 08/30/24 08:00 08/30/24 08:46 08/30/24 08:00
08/29/24 08/30/24 08/31/24
06:59 06:59 06:59
Actual Weight 136 lb 3.931 oz 132 lb 15.02 oz
08/29/24 04:14
08/30/24 02:46
PT 15.1 Sec (11.4-14.6) H 08/25/24 04:28
INR 1.21 08/25/24 04:28
APTT 49.7 Sec (23.4-35.0) H 08/24/24 20:28
Magnesium 2.4 mg/dl (1.6-2.3) H 08/29/24 04:14
Triglycerides 50 mg/dl (10-149) 08/20/24 05:59
LDL Cholesterol, Calc 72 mg/dl 08/20/24 05:59
VLDL Cholesterol, Calc 10 mg/dl (0-30) 08/20/24 05:59
HDL Cholesterol 61 mg/dl 08/20/24 05:59
08/19/24
01:22
[id number] Pept [id number]
Physical Exam
Constitutional: No acute distress
EENT: Anicteric
Cardiovascular: Rhythm & rate is regular and Pedal edema present (trace)
Respiratory: Respiratory effort normal and Lungs clear to auscul.
GI: Soft
Neuro/Psych: AO x 3
Data Reviewed
-
Date of Service: August 30, 2024
Medical Decision Making: Reviewed Test Results
EKG: Tracing Personally Visualized and interpreted
Echo: Report Reviewed by me
Labs: Labs Reviewed by me
[2024-08-30] MEDS: ZESTRIL 2.5 MG PO (09:03)
--- NOTE | 2024-08-30 10:31 | CM ---
CM following for DC planning needs.
Plan is to transfer to [place] [facility] @ .
Confirmed that bed is avail. today.
Met w/ patient, dtr. Franks at bedside to confirm plans. Reviewed estimated length of stay and anticipated DC plan from rehab. Reviewed post op MD appointments + Cardiac Rehab.
Plan: Transfer to [place] @ today
--- NOTE | 2024-08-30 11:03 | W.DCSUMMARY ---
Discharge Summary
Discharge Data
Date of Admission: 08/19/24
Date of Discharge: 08/30/24
-
Pending Results: No
Hospital Course
Patient is a 79-year-old female with past medical history of anxiety/depression who presented to [facility] ED complaining of shortness of breath and shoulder discomfort. She has complained of shortness of breath with exertion for
approximately 3 weeks prior to admission. Shortness of breath has gradually increased in frequency and severity since that time. She also now has developed a nonproductive cough. She reports difficulty sleeping due to dyspnea and orthopnea. She
also complains of fatigue. She reports a few episodes of left shoulder discomfort. Pain described as left shoulder pain which radiates across the left chest. Pain also described as dull and tight. She follows with a tin can feeder in [place]. She recently moved to this area to live with her daughter after her 's passing at the end of May.
She ruled in for a NSTEMI with serial enzymes studies. She was treated for acute heart failure and responded to IV Lasix. She underwent cardiac workup which revealed single-vessel coronary artery disease and echocardiogram showing mildly dilated
LV with low normal systolic function. Ejection fraction was 50%. There was severe mitral regurgitation. There was severe aortic regurgitation. Pulmonary artery pressure of 40 to 45 mmHg. There was mild tricuspid regurgitation. There was mild
pulmonic regurgitation. She was seen in consultation by Dr. Gipson who recommended coronary artery bypass grafting along with aortic valve replacement, mitral valve repair, and tricuspid valve repair. She consented for surgery.
On the morning of 08/24/2024 patient was brought to the operating room where she underwent aortic valve replacement with a #25 Inspiris bioprosthetic valve. A mitral valve repair with a #32 band along with neocords to P1and P2. A tricuspid valve
repair with a #28 band.
Coronary artery bypass grafting with 2 distal anastomoses. The left internal mammary artery was utilized bypass to the left anterior descending coronary artery. A single saphenous vein graft was utilized to bypass the diagonal coronary artery.
The left atrial appendage was ligated with a #35 AtriClip.
She tolerated the procedure well and was returned to the surgical intensive care unit on epinephrine, Primacor and Levophed drips. She was treated with multiple transfusions of packed red blood cells, platelets and FFP for postoperative
coagulopathy. She was able to be extubated later in the afternoon on the day of surgery. Her first night in the cardiac ICU was uneventful.
Postoperative day #1 Levophed was weaned off. 1 unit packed red blood cells were transfused. Milrinone increased and Cardene started due to elevated SVR. She was aggressively diuresed with a Bumex drip. Her monitoring lines remained in place and
beta-kin was held.
Postoperative day #2 Primacor weaned to 0.2. She again continued diuresis with a Bumex drip. Her chest tube was removed.
Postoperative day #3 Primacor dose was weaned to 0.125. Bumex drip continued until 5 PM. Her weight was now approaching baseline.
She was seen in consultation by PT and OT who recommended rehab.
Postoperative day #4 milrinone discontinued and physical therapy and Occupational Therapy continued but patient was severely deconditioned.
Postoperative day #5 patient now switched to p.o. Diamox along with p.o. Bumex. She was evaluated from [facility] and is awaiting bed availability. Her weight now is almost back to baseline. Plan was to continue diuresis for at least 1 more week.
Postoperative day #6 temporary pacing wires were cut. [facility] transfer was arranged. At time of discharge her vital signs were as follows, she was afebrile, blood pressure 122/71, pulse 80 regular, pulse ox on room air was 95%.
Weight on 08/30/2024 was 132 pounds.
Chest x-ray performed on 08/29/2024 was essentially clear, there was a trace left effusion. She will be followed by Dr. Irwin and PCP Dr. King. She was given a full set of discharge instructions along with appointments to see Dr. Gipson after
her arrival at home post [facility] discharge.
Discharge labs as follows white blood cell count 9.0, hemoglobin 10.6, hematocrit 31.6, platelets 265
Sodium 137, potassium 4.6, chloride 99, CO2 27, BUN 13, creatinine 0.8, glucose 109
Discharge Plan
-
Patient Disposition: Acute Rehab Facility
Discharge Diagnosis/Procedures: Tricuspid valve repair, Mitral Valve Repair, Aortic valve replacement and CABG x2
Condition: Fair
Diet: Low Sodium
Activity: As tolerated
Driving Restrictions: Not until seen by your Dr
Bathing Restrictions: OK to Shower
Other Services: Cardiac Rehab
Specialty Instructions: Weigh Daily- Call MD for wt gain/loss 3 lbs overnight/5 lbs in 1 week
Activity Restrictions/Additional Instructions:
ACTIVITY:
-No strenuous activity: no heavy lifting, pushing, pulling anything over 15 pounds for one month
-continue to use stairs as tolerated
DRIVING RESTRICTIONS:
-No driving for one month or until approved by your surgeon
WOUND CARE:
-Shower daily. Use soap & water.
-No lotions, creams or powders on incision area.
DIET:
-continue a low fat/low cholesterol diet.
-IF you are diabetic, continue carb controlled diet.
CARDIAC REHAB:
-Please make appointment to start in 5-6 weeks with your local hospital program. (See Cardiac Rehabilitation Discharge Booklet).
SPECIALTY INSTRUCTIONS:
-Weigh yourself daily. Call your physician for any weight gain/loss of 3 lbs overnight or 5 lbs in one week.
-REPORT any clicking noise or uneven appearance of your sternum to your surgeon immediately.
-If you smoke, you are instructed to quit. The [place] smoking hotline phone number is [phone]
Instructions: *PCP/Other Refrigeration Engineer Heart Failure Instructions
Referrals:
[facility] @ [Other]
Remy Irwin MD [Non-Admitting Privileges] - 10/04/24 8:15 am
Tyrell King MD [Family Provider] -
Zak Gipson MD [Active] - 09/26/24 2:45 pm
Additional Discharge Medication Instructions: Splenic artery aneurysm 1.5 cm-repeat CAT scan abdomen in 6 months
Stop omeprazole, replaced by pantoprazole
Prescriptions:
New
bumetanide 2 mg Tablet
2 mg PO DAILY Qty: 7 2RF
bisacodyl 10 mg Suppository
10 mg OH DAILYPRN PRN (Reason: constipation ) Qty: 12 0RF
cyclobenzaprine 10 mg Tablet
5 mg PO Q8HPRN PRN (Reason: muscle spasm) Qty: 10 0RF
atorvastatin 40 mg Tablet
40 mg PO QPM Qty: 30 2RF
aspirin 81 mg Tablet,Chewable
81 mg PO DAILY Qty: 30 2RF
metoprolol tartrate 25 mg Tablet
12.5 mg PO Q12 Qty: 60 2RF
clopidogrel 75 mg Tablet
75 mg PO DAILY Qty: 30 2RF
pantoprazole 40 mg Tablet,Delayed Release (Dr/Ec)
40 mg PO DAILY Qty: 30 2RF
gabapentin 100 mg Capsule
100 mg PO BIDPRN PRN (Reason: mod-severe pain) Qty: 10 0RF
oxycodone 5 mg Tablet
2.5 mg PO Q6HPRN PRN (Reason: mild pain) Qty: 10 0RF
acetaminophen 325 mg Tablet
650 mg PO Q4HPRN PRN (Reason: mild pain,headache,temp >101F ) Qty: 0 0RF
lisinopril 2.5 mg Tablet
2.5 mg PO DAILY Qty: 30 2RF
potassium chloride 20 mEq tablet extended release
20 meq PO BID Qty: 14 0RF
Continued
lamotrigine 100 MG tablet
200 mg PO BID
lorazepam 1 MG tablet
1 mg PO TIDPRN PRN (Reason: anxiety)
Discontinued
omeprazole
Discharge Orders:
Discharge Patient (As Directed); Ordered 08/30/24
Ordered By: Preston Stout
Care Plan Goals
Care Plan Goals:
Problem: Readiness for enhanced knowledge related to diagnosis and treatment plan
Goal: Understand your diagnosis and treatment plan needs, including medications if applicable.
Instructions: Know your diagnosis, underlying causes and treatment plan options, including medications if applicable. Consult with your health care team to learn about your diagnosis and treatment plan, including medications if applicable.
Discharge Date and Time
Discharge Date/Time: 08/30/24 12:03
Print Language: SPANISH
[2024-08-30 11:11] VITALS: BP 102/61
[2024-08-30] MEDS: FLUAD (65 yr+) 2024-2025 FORMULA 0.5 ML IM (11:11)
[2024-08-30] MEDS: PREVNAR 20 0.5 ML IM (11:14)
--- NOTE | 2024-08-30 11:20 | PTCARENOTE ---
Pt reassessed. VSS. Discharge order received. Flu & Pneumoia vaccine administered. Pt tolerated. Resting in bed, awaiting [facility] transfer.
--- NOTE | 2024-08-30 11:53 | PTCARENOTE ---
Discharge order received. Pt stable prior to discharge. VSS. Right AC PIV removed. Pt transported to [facility] via stretcher via pt transport. All belongings sent with patient.
--- NOTE | 2024-08-31 10:13 | W.HF.CON ---
Heart Failure
- LV Function
Left ventricular function study result: LV Ejection fraction >40%
Ejection Fraction Percentage: 45-50
- ARNI
Patient already on ARNI: No
Heart Failure ARNI Not Indicated: LV Ejection Fraction >/= 40%
- ACEI/ARB
Patient already on ACEI/ARB: Yes
- Beta Joie
Patient already on Evidence Based Beta Joie: No
Heart Failure Evidence Based Beta Joie Not Indicated: LV Ejection Fraction > 40%
- Mineralocorticord Receptor Antagonist
Patient already on MRA: No
Heart Failure MRA Not Indicated: LV Ejection Fraction > 40%
- SGLT-2 Inhibitor
Patient already on SGLT-2 Inhibitor: No
Heart Failure SGLT-2 Inhibitor Not Indicated: LV Ejection Fraction >40%
- NYHA CHF Classification
NYHA CHF Classification Level: Class III - Symptoms w/ min exertion, interferes w/ nml daily activity
- ACC/AHA Stage
ACC/AHA Stage: Stage C: Symptomatic Heart Failure
== END 2024-08-30 12:03 | DRG 216 ==
LOC: CVICU 04:28
PROVIDERS: Anesthesiology; Clinical Nurse Specialist Acute Care; Hospitalist; Physician Assistant Medical; Student in an Organized Health Care Education/Training Program; ADMITTING PHYSICIAN Hospitalist; ATTENDING PHYSICIAN Thoracic Surgery (Cardiothoracic Vascular Surgery); CONSULT PHYSICIAN Internal Medicine; CONSULT PHYSICIAN Internal Medicine Critical Care Medicine; CONSULT PHYSICIAN Physical Medicine & Rehabilitation; EMERGENCY PHYSICIAN Emergency Medicine; FAMILY PHYSICIAN Internal Medicine
PROC: 4A023N7 Measurement of Cardiac Sampling and Pressure, Left Heart, Percutaneous Approach (ICD-10-PCS; 2024-08-20)
PROC: B2151ZZ Fluoroscopy of Left Heart using Low Osmolar Contrast (ICD-10-PCS; 2024-08-20)
PROC: B2111ZZ Fluoroscopy of Multiple Coronary Arteries using Low Osmolar Contrast (ICD-10-PCS; 2024-08-20)
PROC: 02UJ0JZ Supplement Tricuspid Valve with Synthetic Substitute, Open Approach (ICD-10-PCS; 2024-08-24)
PROC: 30233R1 Transfusion of Nonautologous Platelets into Peripheral Vein, Percutaneous Approach (ICD-10-PCS; 2024-08-24)
PROC: 30233N1 Transfusion of Nonautologous Red Blood Cells into Peripheral Vein, Percutaneous Approach (ICD-10-PCS; 2024-08-24)
PROC: 02L70CK Occlusion of Left Atrial Appendage with Extraluminal Device, Open Approach (ICD-10-PCS; 2024-08-24)
PROC: 30233K1 Transfusion of Nonautologous Frozen Plasma into Peripheral Vein, Percutaneous Approach (ICD-10-PCS; 2024-08-24)
PROC: 02UG0JZ Supplement Mitral Valve with Synthetic Substitute, Open Approach (ICD-10-PCS; 2024-08-24)
PROC: 02100Z9 Bypass Coronary Artery, One Artery from Left Internal Mammary, Open Approach (ICD-10-PCS; 2024-08-24)
PROC: 02RF08Z Replacement of Aortic Valve with Zooplastic Tissue, Open Approach (ICD-10-PCS; 2024-08-24)
PROC: 06BP4ZZ Excision of Right Saphenous Vein, Percutaneous Endoscopic Approach (ICD-10-PCS; 2024-08-24)
PROC: 5A1221Z Performance of Cardiac Output, Continuous (ICD-10-PCS; 2024-08-24)
PROC: B24BZZ4 Ultrasonography of Heart with Aorta, Transesophageal (ICD-10-PCS; 2024-08-24)
PROC: 021009W Bypass Coronary Artery, One Artery from Aorta with Autologous Venous Tissue, Open Approach (ICD-10-PCS; 2024-08-24)
PROC: 3E0234Z Introduction of Serum, Toxoid and Vaccine into Muscle, Percutaneous Approach (ICD-10-PCS; 2024-08-30)
PROC: 3E02340 Introduction of Influenza Vaccine into Muscle, Percutaneous Approach (ICD-10-PCS; 2024-08-30)
DX: I21.4 Non-ST elevation (NSTEMI) myocardial infarction (principal); I50.43 Acute on chronic combined systolic (congestive) and diastolic (congestive) heart failure; I51.81 Takotsubo syndrome; D62 Acute posthemorrhagic anemia; D68.8 Other specified coagulation defects; J98.11 Atelectasis; I42.8 Other cardiomyopathies; I25.10 Atherosclerotic heart disease of native coronary artery without angina pectoris; I08.3 Combined rheumatic disorders of mitral, aortic and tricuspid valves; I72.8 Aneurysm of other specified arteries; K57.30 Diverticulosis of large intestine without perforation or abscess without bleeding; D69.59 Other secondary thrombocytopenia; E16.2 Hypoglycemia, unspecified; F41.9 Anxiety disorder, unspecified; F32.A Depression, unspecified; K21.9 Gastro-esophageal reflux disease without esophagitis; Z77.22 Contact with and (suspected) exposure to environmental tobacco smoke (acute) (chronic); K44.9 Diaphragmatic hernia without obstruction or gangrene; I25.2 Old myocardial infarction; Z11.52 Encounter for screening for COVID-19; Z23 Encounter for immunization; Z79.899 Other long term (current) drug therapy; Z82.49 Family history of ischemic heart disease and other diseases of the circulatory system; E86.1 Hypovolemia; I45.5 Other specified heart block; I27.20 Pulmonary hypertension, unspecified; Z85.819 Personal history of malignant neoplasm of unspecified site of lip, oral cavity, and pharynx
CPT/HCPCS: 88305; 88311; 70355; 71045; 71046; 71275; 80048; 80051; 80053; 80061; 81003; 81015; 82248; 82330; 82565; 82805; 82810; 82947; 82962; 83036; 83605; 83735; 83880; 84132; 84134; 84302; 84484; 84520; 85014; 85018; 85025; 85027; 85049; 85610; 85730; 86850; 86900; 86901; 86920; 87086; 87811; 90662; 90677; 93005; 93306; 93312; 93320; 93325; 93458; 93880; 94002; 96374; 96375; 97110; 97163; 97167; 97530; 97535; 99291; C1894; G0008; G0009; J2260; J2916; P9016; P9045; P9059; P9073; Q9967

== ENCOUNTER 2024-09-21 11:50 | Outpatient (RCR) | payer MEDICARE, OTHER, SELFPAY | END 2024-09-21 23:59 | disposition home or self-care (01) | LOC: RPT 11:50 | PROVIDERS: ATTENDING PHYSICIAN Physical Medicine & Rehabilitation; FAMILY PHYSICIAN Internal Medicine | DX: R54 Age-related physical debility (principal); R26.89 Other abnormalities of gait and mobility; Z73.6 Limitation of activities due to disability | CPT/HCPCS: 97110; 97162; 97167; 97530; 97535 ==

== ENCOUNTER → 2024-10-05 15:07 | Outpatient (REF) | payer MEDICARE, OTHER, SELFPAY | LOC: RCS 15:07 | PROVIDERS: ATTENDING PHYSICIAN Thoracic Surgery (Cardiothoracic Vascular Surgery); FAMILY PHYSICIAN Internal Medicine | DX: R30.0 Dysuria (principal); Z95.2 Presence of prosthetic heart valve; Z98.890 Other specified postprocedural states | CPT/HCPCS: 93306 ==

== ENCOUNTER 2024-10-09 11:50 | Outpatient (RCR) | payer MEDICARE, OTHER, SELFPAY | END 2024-10-09 23:59 | disposition home or self-care (01) | LOC: RPT 11:50 | PROVIDERS: ATTENDING PHYSICIAN Physical Medicine & Rehabilitation; FAMILY PHYSICIAN Internal Medicine | DX: R54 Age-related physical debility (principal); Z73.6 Limitation of activities due to disability; R26.89 Other abnormalities of gait and mobility | CPT/HCPCS: 97110; 97112; 97530 ==

== ENCOUNTER 2024-11-13 11:07 | Outpatient (RCR) | payer MEDICARE, OTHER, SELFPAY | END 2024-11-13 23:59 | disposition home or self-care (01) | LOC: RPT 11:07 | PROVIDERS: ATTENDING PHYSICIAN Physical Medicine & Rehabilitation; FAMILY PHYSICIAN Internal Medicine | DX: R54 Age-related physical debility (principal); Z73.6 Limitation of activities due to disability; R26.89 Other abnormalities of gait and mobility; Z98.890 Other specified postprocedural states; Z95.1 Presence of aortocoronary bypass graft | CPT/HCPCS: 97110; 97140; 97530; 97535 ==

== ENCOUNTER 2024-11-18 09:47 | Emergency (ER) | payer MEDICARE, OTHER, SELFPAY ==
[2024-11-18 09:48] VITALS: BP 163/92
[2024-11-18 10:27] LABS: COVID-19 Antigen Negative (Negative)
--- NOTE | 2024-11-18 12:19 | ED.GENMED ---
History of Present Illness
General
Chief Complaint: Cough
Source: patient
Exam Limitations: none
Time Seen by Provider: 11/18/24 10:04
Nursing documentation reviewed up to this point in time: agreed with
History of Present Illness
History of Present Illness:
79-year-old female past medical history of heart disease heart failure presenting to the emergency department with concerns of cough for a month denies any fevers also raspy voice. Denies significant shortness of breath or chest pain.
Past History
Past History
ED Past Medical History: GERD and Psychiatric (anxiety, MVP)
ED Past Surgical History: Orthopedic
Social History
Tobacco: Non-smoker
Alcohol: None
Drug: None
Personal:
Living: alone
Family History
Family History: CAD (mother with pmh CAD and CHF, 80y)
Review of Systems
Review of Systems
Allergies reviewed?: Yes
All Other Systems: ROS reviewed and negative except as documented in HPI and ROS
Phy Exam
Physical Exam
Physical Exam:
GENERAL: Alert , in no apparent distress
EYE: pupils equal and reactive
NECK: Supple, no significant adenopathy.
ENT: o/p clr, mmm.
CARDIAC: Regular rate and rhythm .
LUNGS: Clear breath sounds bilaterally, no acute respiratory distress, no wheezes/rales/rhonchi
ABDOMEN: Soft, without focal tenderness, no r/g, no cvat
NEUROLOGICAL: Alert and oriented, no focal neuro deficits
SKIN: Warm and dry, skin intact.
MUSCULOSKELETAL: No edema, well perfused.
PSYCH: Normal and appropriate interaction.
Course
Orders/Labs/Results
Orders:
Orders
11/18/24 09:52
CXR2 [CR Chest - 2 Views ] Urgent
Comment:
Reason For Exam: cough
11/18/24 09:54
COVID-19 Antigen Urgent
Source: Nasal Swab
Influenza A+B Rapid Molecular Urgent
[facility]UTHER Source: Nasal Swab
Specimen Description:
11/18/24 10:14
ECG [Electrocardiogram (*1)] Urgent
Reason for Study: Shortness of Breath
EKG- Treatment ONCE
11/18/24 12:16
Dexamethasone [Decadron] 8 mg PO NOW STA
Vital Signs
Initial and Last Documented VS:
Initial Vital Signs
Temp Pulse Resp BP Pulse Ox
98.1 F 96 18 163/92 99
11/18/24 09:48 11/18/24 09:48 11/18/24 09:48 11/18/24 09:48 11/18/24 09:48
Last Documented Vital Signs
Temp Pulse Resp BP Pulse Ox
98.1 F 96 18 163/92 99
11/18/24 09:48 11/18/24 09:48 11/18/24 09:48 11/18/24 09:48 11/18/24 10:32
MDM/Problems Addressed
MDM/Problems Addressed:
79-year-old female presenting to the emergency department today with concerns of ongoing cough over the past month. Lungs are clear here patient well-appearing no acute distress. Patient claims that she has noticed raspiness and sometimes
intermittent wheeze. Chest x-ray did not show acute abnormalities. Because of her concern of some slight wheeze patient was given a dose of steroid however no significant wheeze was observed here. Otherwise we will was advised to see her primary
care doctor within the next week or 2 for reassessment. Return precautions given.
*Critical Care Note
Total Time (30-74mins, 75-104mins- exclusive of procedures): Not Applicable
ED Attending Note
-
Portions of this chart may have been created with voice recognition software.� Occasional wrong word or��sound alike� substitutions may have occurred due to the inherent limitations of voice recognition software.
Discharge Plan
Departure
Patient Disposition: Home (Routine Discharge)
Date of Disposition: 11/18/24
Time of Disposition: 12:36
Patient with high blood pressure during this ER visit?: No
Condition: Good
Covid-19: Not Applicable
Discharge Problem:
Cough
Instructions: Acute Bronchitis, Adult (DC)
Prescriptions:
No Action
lamotrigine 100 MG tablet
200 mg PO BID
aspirin 81 mg Tablet,Chewable
81 mg PO DAILY Qty: 30 2RF
levothyroxine 25 mcg Tablet
25 mcg PO DAILY @ 0600 30 Days Qty: 30 0RF
multivitamin with folic acid [Tab-A-Jay] 400 mcg Tablet
1 tab PO DAILY 30 Days Qty: 30 0RF
cyanocobalamin (vitamin B-12) 1,000 mcg Tablet
1,000 mcg PO DAILY 30 Days Qty: 30 0RF
atorvastatin 40 mg Tablet
40 mg PO QPM 30 Days Qty: 30 0RF
bumetanide 2 mg Tablet
2 mg PO DAILY 30 Days Qty: 30 0RF
clopidogrel 75 mg Tablet
75 mg PO DAILY 30 Days Qty: 30 2RF
pantoprazole 40 mg Tablet,Delayed Release (Dr/Ec)
40 mg PO DAILY 30 Days Qty: 30 0RF
lorazepam 1 MG tablet
1 mg PO TIDPRN PRN (Reason: anxiety) 3 Days Qty: 9 0RF
metoprolol tartrate 25 mg Tablet
12.5 mg PO Q12 30 Days Qty: 30 2RF
potassium chloride 20 mEq tablet extended release
20 meq PO BID 30 Days Qty: 60 0RF
Referrals:
Tyrell King MD [Family Provider] -
Activity Restrictions/Additional Instructions:
You came to the emergency department today with concerns of ongoing cough. You are given dose of steroid. Please follow closely with the primary care doctor. Return to the emergency department any worsening, new or concerning symptoms.
Interventions
Interventions:
*Risk Screen - Suicide Last Done: 11/18/24 09:48
*General Assessment Last Done: 11/18/24 09:48
*Neglect/Abuse Screening Last Done: 11/18/24 09:48
ED- Fall Risk Assessment Last Done: 11/18/24 10:32
*ED COVID-19 Vaccine History Last Done: 11/18/24 09:48
ED- Pulmonary Assessment Last Done: 11/18/24 10:32
Discharge Date and Time
Print Language: HAITIAN
[2024-11-18] MEDS: DECADRON 8 MG PO (12:25)
== END 2024-11-18 13:00 | disposition home or self-care (01) ==
LOC: EMR 09:47
PROVIDERS: EMERGENCY PHYSICIAN Emergency Medicine; FAMILY PHYSICIAN Internal Medicine
DX: R05.9 Cough, unspecified (principal); I50.9 Heart failure, unspecified; K21.9 Gastro-esophageal reflux disease without esophagitis
CPT/HCPCS: 99285; 71046; 87502; 87811; 93005

== ENCOUNTER 2024-11-26 08:46 | Outpatient (RCR) | payer MEDICARE, OTHER, SELFPAY | END 2024-11-26 23:59 | disposition home or self-care (01) | LOC: CRHB 08:46 | PROVIDERS: ATTENDING PHYSICIAN Student in an Organized Health Care Education/Training Program | DX: I25.10 Atherosclerotic heart disease of native coronary artery without angina pectoris (principal); Z95.1 Presence of aortocoronary bypass graft; Z95.4 Presence of other heart-valve replacement | CPT/HCPCS: G0422; G0423 ==

== ENCOUNTER 2024-12-28 08:56 | Outpatient (RCR) | payer MEDICARE, OTHER, SELFPAY | END 2024-12-28 23:59 | disposition home or self-care (01) | LOC: CRHB 08:56 | PROVIDERS: ATTENDING PHYSICIAN Student in an Organized Health Care Education/Training Program | DX: Z95.4 Presence of other heart-valve replacement (principal); Z95.1 Presence of aortocoronary bypass graft; Z98.890 Other specified postprocedural states | CPT/HCPCS: G0422; G0423 ==

== ENCOUNTER 2025-01-25 08:45 | Outpatient (RCR) | payer MEDICARE, OTHER, SELFPAY | END 2025-01-25 23:59 | disposition home or self-care (01) | LOC: CRHB 08:45 | PROVIDERS: ATTENDING PHYSICIAN Student in an Organized Health Care Education/Training Program | DX: Z95.4 Presence of other heart-valve replacement (principal); Z95.1 Presence of aortocoronary bypass graft; Z98.890 Other specified postprocedural states | CPT/HCPCS: G0422; G0423 ==

== ENCOUNTER → 2025-02-12 10:28 | Outpatient (REF) | payer MEDICARE, OTHER, SELFPAY ==
[2025-02-12 12:03] LABS: Blood Urea Nitrogen 19 mg/dl (7-17); Calcium 9.7 mg/dl (8.4-10.2); Carbon Dioxide 28 mmol/L (22-30); Chloride 100 mmol/L (98-107); Glucose 96 mg/dl (70-99); Potassium 4.7 mmol/L (3.5-5.1); Sodium 138 mmol/L (135-145); eGFR > 60.00
== END ==
LOC: REG 10:28
PROVIDERS: ATTENDING PHYSICIAN Student in an Organized Health Care Education/Training Program
DX: I50.20 Unspecified systolic (congestive) heart failure (principal)
CPT/HCPCS: 80048

== ENCOUNTER 2025-02-25 08:42 | Outpatient (RCR) | payer MEDICARE, OTHER, SELFPAY ==
[2025-02-12 11:48] LABS: HDL Cholesterol 52 mg/dl; LDL Cholesterol, Calculated 42 mg/dl; Total Cholesterol 103 mg/dl (50-199); Triglyceride 47 mg/dl (10-149); Very Low Density Lipoprotein 9 mg/dl (0-30)
== END 2025-02-25 23:59 | disposition home or self-care (01) ==
LOC: CRHB 08:42
PROVIDERS: ATTENDING PHYSICIAN Student in an Organized Health Care Education/Training Program; FAMILY PHYSICIAN Internal Medicine
DX: Z95.4 Presence of other heart-valve replacement (principal); Z95.1 Presence of aortocoronary bypass graft; Z98.890 Other specified postprocedural states
CPT/HCPCS: 36415; 80061; 93798; G0422; G0423

== ENCOUNTER 2025-02-27 07:50 | Outpatient (RCR) | payer MEDICARE, OTHER, SELFPAY | END 2025-02-27 11:44 | disposition home or self-care (01) | LOC: CRHB 07:50 | PROVIDERS: ATTENDING PHYSICIAN Student in an Organized Health Care Education/Training Program; FAMILY PHYSICIAN Internal Medicine | DX: Z95.4 Presence of other heart-valve replacement (principal); Z95.1 Presence of aortocoronary bypass graft; Z98.890 Other specified postprocedural states | CPT/HCPCS: G0422; G0423 ==

== ENCOUNTER → 2025-03-11 08:38 | Outpatient (REF) | payer MEDICARE, OTHER, SELFPAY | LOC: RCS 08:38 | PROVIDERS: ATTENDING PHYSICIAN Thoracic Surgery (Cardiothoracic Vascular Surgery); FAMILY PHYSICIAN Student in an Organized Health Care Education/Training Program | DX: I25.10 Atherosclerotic heart disease of native coronary artery without angina pectoris (principal); Z01.810 Encounter for preprocedural cardiovascular examination | CPT/HCPCS: 93306 ==

== ENCOUNTER 2025-04-28 11:07 | Emergency (ER) | payer MEDICARE, OTHER, SELFPAY ==
[2025-04-28 11:14] VITALS: BP 121/77
--- NOTE | 2025-04-28 11:43 | ED.SKININJ ---
HPI-Injury
General
Chief Complaint: Eye Problems
Source: patient and family (Daughter at bedside)
Exam Limitations: none
Time Seen by Provider: 04/28/25 11:20
Nursing documentation reviewed up to this point in time: agreed with
History of Present Illness-Injury
Initial Injury comments:
80-year-old female with history of coronary bypass, mitral valve replaced, aortic valve repaired about 6 months ago presents for redness of the white part of her right eye. Daughter was in conversation with her this morning when she noted the
redness. Patient denies pain or change in vision. Patient does admit that she thinks she rubbed her eye sometime during the night. She is on Plavix.
Past History
Past History
ED Past Medical History: CHF, GERD, [place] and Psychiatric (anxiety, )
ED Past Surgical History: Cardiac (Tricuspid valve repair, coronary artery bypass, aortic valve replacement 08/2024) and Orthopedic
Social History
Tobacco: Non-smoker
Alcohol: None
Drug: None
Personal:
Living: with family
Family History
Family History: CAD (mother with pmh CAD and CHF, 80y)
Review of Systems
Review of Systems
Allergies reviewed?: Yes
All Other Systems: ROS reviewed and negative except as documented in HPI and ROS
EENT: Reports other (Redness in the white of the right eye, no change in vision)
Neurological: Denies headache
Phy Exam
Physical Exam
Physical Exam:
GENERAL: No acute distress. A&Ox3.
CONSTITUTIONAL: Afebrile.
EYES: clear, right eye subconjunctival hemorrhage between 3 and 6:00. PERRL, EOMs intact, good red reflex
RESPIRATORY: Regular respirations, nonlabored, lungs clear.
CARDIOVASCULAR: Regular rate and rhythm, no murmurs, no rubs.
MUSCULOSKELETAL: Moves with ease. Well perfused.
SKIN: Warm, dry, pink
PSYCH: Normal mood and affect. Well kept, interactive and appropriate
NEUROLOGIC: Awake, alert and oriented. No focal neurological deficits
Course
Vital Signs
Initial and Last Documented VS:
Initial Vital Signs
Temp Pulse Resp BP Pulse Ox
97.7 F 90 17 121/77 100
04/28/25 11:14 04/28/25 11:14 04/28/25 11:14 04/28/25 11:14 04/28/25 11:14
Last Documented Vital Signs
Temp Pulse Resp BP Pulse Ox
97.7 F 90 17 121/77 100
04/28/25 11:14 04/28/25 11:14 04/28/25 11:14 04/28/25 11:14 04/28/25 11:14
MDM/Problems Addressed
Differential Diagnosis Includes:
Subconjunctival hemorrhage
MDM/Problems Addressed:
80-year-old female with history of coronary bypass, mitral valve replaced, aortic valve repaired about 6 months ago presents for redness of the white part of her right eye. Daughter was in conversation with her this morning when she noted the
redness. Patient denies pain or change in vision. Patient does admit that she thinks she rubbed her eye sometime during the night. She is on Plavix.
History and exam consistent with a small subconjunctival hemorrhage
*Critical Care Note
Total Time (30-74mins, 75-104mins- exclusive of procedures): Not Applicable
ED Attending Note
-
Portions of this chart may have been created with voice recognition software.� Occasional wrong word or��sound alike� substitutions may have occurred due to the inherent limitations of voice recognition software.
Discharge Plan
Departure
Patient Disposition: Home (Routine Discharge)
Date of Disposition: 04/28/25
Time of Disposition: 11:40
Patient with high blood pressure during this ER visit?: No
Condition: Good
Discharge Problem:
Subconjunctival hemorrhage of right eye
Instructions: Subconjunctival Hemorrhage
Prescriptions:
No Action
lamotrigine 100 MG tablet
200 mg PO BID
aspirin 81 mg Tablet,Chewable
81 mg PO DAILY Qty: 30 2RF
levothyroxine 25 mcg Tablet
25 mcg PO DAILY @ 0600 30 Days Qty: 30 0RF
multivitamin with folic acid [Tab-A-Jay] 400 mcg Tablet
1 tab PO DAILY 30 Days Qty: 30 0RF
cyanocobalamin (vitamin B-12) 1,000 mcg Tablet
1,000 mcg PO DAILY 30 Days Qty: 30 0RF
atorvastatin 40 mg Tablet
40 mg PO QPM 30 Days Qty: 30 0RF
bumetanide 2 mg Tablet
2 mg PO DAILY 30 Days Qty: 30 0RF
clopidogrel 75 mg Tablet
75 mg PO DAILY 30 Days Qty: 30 2RF
pantoprazole 40 mg Tablet,Delayed Release (Dr/Ec)
40 mg PO DAILY 30 Days Qty: 30 0RF
lorazepam 1 MG tablet
1 mg PO TIDPRN PRN (Reason: anxiety) 3 Days Qty: 9 0RF
metoprolol tartrate 25 mg Tablet
12.5 mg PO Q12 30 Days Qty: 30 2RF
potassium chloride 20 mEq tablet extended release
20 meq PO BID 30 Days Qty: 60 0RF
Activity Restrictions/Additional Instructions:
As we discussed, this is not dangerous or worrisome, you most likely broke a small blood vessel when you rubbed your eye.
Interventions
Interventions:
*Risk Screen - Suicide Last Done: 04/28/25 11:16
*General Assessment Last Done: 04/28/25 11:16
*Neglect/Abuse Screening Last Done: 04/28/25 11:16
*ED- Fall Risk Assessment Last Done: 04/28/25 11:45
*ED COVID-19 Vaccine History Last Done: 04/28/25 11:16
*Nursing Disposition Last Done: 04/28/25 11:55
Discharge Date and Time
Discharge Date/Time: 04/28/25 11:55
Print Language: IRISH
== END 2025-04-28 11:55 | disposition home or self-care (01) ==
LOC: EMR 11:07
PROVIDERS: EMERGENCY PHYSICIAN Emergency Medicine
DX: H11.31 Conjunctival hemorrhage, right eye (principal); I50.9 Heart failure, unspecified; F41.9 Anxiety disorder, unspecified; K21.9 Gastro-esophageal reflux disease without esophagitis; I25.10 Atherosclerotic heart disease of native coronary artery without angina pectoris; K57.90 Diverticulosis of intestine, part unspecified, without perforation or abscess without bleeding; K44.9 Diaphragmatic hernia without obstruction or gangrene; M19.90 Unspecified osteoarthritis, unspecified site; F31.9 Bipolar disorder, unspecified; F32.A Depression, unspecified; I25.2 Old myocardial infarction; Z79.02 Long term (current) use of antithrombotics/antiplatelets; Z95.1 Presence of aortocoronary bypass graft; Z95.2 Presence of prosthetic heart valve
CPT/HCPCS: 99282

== ENCOUNTER 2025-06-13 11:04 | Emergency (ER) | payer MEDICARE, OTHER, SELFPAY ==
[2025-06-13 11:13] VITALS: BP 114/79
--- NOTE | 2025-06-13 14:13 | ED.GENMED ---
History of Present Illness
General
Chief Complaint: Musculo-Skeletal Complaint
Time Seen by Provider: 06/13/25 14:06
History of Present Illness
History of Present Illness:
TIME OF INITIAL EVALUATION
- 2:05 PM
REVIEW OF OLD RECORDS
- The patient has a history of CHF, CAD.
Note:
CHIEF COMPLAINT(S)
Pins and needles sensation in the right arm. She was seen in the ED last month diagnosed with a subconjunctival hemorrhage. She has had bypass in the past.
HISTORY OF PRESENT ILLNESS
The patient is an 80-year-old female who presented with a sensation described as 'pins and needles,' similar to the feeling after a limb falls asleep, occurring in her right arm down to her fingers. This sensation began two to three days ago without
any associated trauma. The symptoms recurred yesterday and continued into this morning, though the patient reports that the sensation has subsided currently. The patient denies any loss of strength in the arm. She notes no symptoms extending to her
leg and no specific exacerbation of symptoms with head position changes. The patient mentioned experiencing muscle ache when lifting or rotating her arm, but no aggravation of the pins and needles sensation with those movements.
The patient also reported not sleeping well for the last two nights and mentioned recent episodes of heartburn. Anxiety was discussed as a possible contributing factor, as sensations similar to 'pins and needles' may be associated with anxiety,
although the patient is experiencing symptoms only in one arm.
EXTERNAL RECORDS REVIEWED
The patient mentioned undergoing an Electrocardiogram (EKG) earlier today.
SOCIAL DETERMINANTS AFFECTING HEALTH
The patient is described as being very cautious and proactive about her health, implying a focus on preventive measures.
PHYSICAL EXAM
General: Alert, no acute distress.
Skin: Warm, dry.
Head: Normocephalic, atraumatic.
Neck: Supple, trachea midline.
Eye Ears, nose, mouth, and throat: Oral mucosa moist.
Cardiovascular: Normal peripheral perfusion, No edema. Surgical scar noted midline.
Respiratory: Respirations are non-labored.
Gastrointestinal: Abdomen nondistended.
Back: Normal range of motion, Normal alignment.
Musculoskeletal: Normal ROM, normal strength. Good perfusion and radial pulse right upper extremity.
Neurological: Alert and oriented to person, place, time, and situation, No focal neurological deficit observed. Excellent strength in the median, ulnar, radial nerve distributions
Psychiatric: Cooperative, appropriate mood & affect.
PLAN
Further evaluation to determine the cause of the pins and needles sensation, with consideration of potential anxiety-related factors.
DIFFERENTIAL DIAGNOSIS
The Differential Diagnosis includes, in no particular order and is not limited to:
1. Peripheral neuropathy
2. Cervical radiculopathy
3. Carpal tunnel syndrome
4. Ulnar neuropathy
5. Brachial plexus injury
6. Anxiety-related paresthesia
7. Transient ischemic attack
8. Musculoskeletal strain
9. Vitamin deficiency (such as B12)
10. Thoracic outlet syndrome
RADIOLOGY
- X-ray of right shoulder and humerus unremarkable
EKG
- Sinus 90, normal axis, nonspecific ST abnormality
UPDATE
-SUMMARY OF ENCOUNTER
The patient, an 80-year-old female, presented to the emergency department with a 'pins and needles' sensation in her right arm extending to her fingers. She had not experienced any limb weakness, just sensory issues. The sensation began two to three
days ago and occurred without any associated trauma. An x-ray was performed, which appeared normal, and an Electrocardiogram (EKG) was also reviewed, showing no alarming cardiac issues. There was consideration of a pinched nerve as a potential
cause. The patients function was intact with excellent strength shown in movements and resistance tests. It was determined that the patient could be safely discharged home with reassurance and recommended follow-up with her physical chemistry teacher, Dr. Barahona,
especially due to her medical history including open heart surgery.
ASSESSMENT
The pins and needles sensation may be related to a nerve compression issue or anxiety-related paresthesia. Given her past cardiac history, a follow-up with a physical chemistry teacher is necessary.
INDEPENDENT REVIEW OF LABS AND INTERPRETATION OF TESTS
My independent interpretation of the EKG did not show any abnormalities suggesting a cardiac cause for the symptoms.
PLAN
Recommend a follow-up with Dr. Barahona, the patients physical chemistry teacher, for further evaluation considering her history of cardiac procedures.
PATIENT EDUCATION AND COUNSELING
The patient was advised that the sensations she was experiencing could be related to nerve compression or anxiety, and she should be mindful of any changes in function. She was instructed to return if she faces any motor issues such as difficulty
using a fork or if symptoms escalate.
FOLLOW-UP INSTRUCTIONS
Please schedule a follow-up appointment with Dr. Barahona, the patient�s physical chemistry teacher, for further evaluation.
MEDICATION RECONCILIATION
No new medications were prescribed or administered during this visit.
MEDICAL DECISION MAKING
-Complexity of Data Reviewed: Chronic conditions affecting care include the patients cardiovascular history and a previous heart surgery. Differential diagnosis includes peripheral neuropathy, cervical radiculopathy, carpal tunnel syndrome, ulnar
neuropathy, brachial plexus injury, anxiety-related paresthesia, transient ischemic attack, musculoskeletal strain, vitamin deficiency, and thoracic outlet syndrome.
-Data:
Category 1
Non-emergency department records reviewed, including past EKG and outpatient records confirming recent heart procedures.
Category 2
My independent interpretation of the EKG indicated no alarming findings.
-Risk:
Consideration of Admission/Observation: Escalation of care including admission/observation was considered given the complexity and risk of the patients presenting complaint, exam findings, and/or their underlying comorbidities. However, ultimately I
feel the patient is safe for outpatient management with close follow-up. Reasoning: Work-up reassuring, does not reveal any acute life/organ threatening processes, patients symptoms well controlled upon reevaluation, reexamination is reassuring,
vitals are stable, patient agreeable with discharge, reliable for follow-up.
DIAGNOSIS
Possible cervical radiculopathy (ICD-10: M54.12) and Anxiety-related paresthesia (ICD-10: R20.2)
Past History
Past History
ED Past Medical History: CHF, GERD, [place] and Psychiatric (anxiety, )
ED Past Surgical History: Cardiac (Tricuspid valve repair, coronary artery bypass, aortic valve replacement 08/2024) and Orthopedic
Social History
Tobacco: Non-smoker
Alcohol: None
Drug: None
Personal:
Living: with family
Family History
Family History: CAD (mother with pmh CAD and CHF, 80y)
Phy Exam
Physical Exam
Physical Exam:
See HPI
Course
Orders/Labs/Results
Orders:
Orders
06/13/25 11:05
Electrocardiogram (*1) Urgent
Reason for Study: CAD
EKG- Treatment ONCE
06/13/25 11:18
CR Shoulder - Right Min 2 View Urgent
Comment:
Reason For Exam: pain/tingling
Humerus, Right 2 Views [CR Humerus - Right Min 2 View*] Urgent
Comment:
Reason For Exam: pain/tingling
Vital Signs
Initial and Last Documented VS:
Initial Vital Signs
Temp Pulse Resp BP Pulse Ox
36.6 C 85 18 114/79 100
06/13/25 11:13 06/13/25 11:13 06/13/25 11:13 06/13/25 11:13 06/13/25 11:13
Last Documented Vital Signs
Temp Pulse Resp BP Pulse Ox
36.6 C 85 18 114/79 100
06/13/25 11:13 06/13/25 11:13 06/13/25 11:13 06/13/25 11:13 06/13/25 11:13
*Pulse Oximetry
SaO2: 100
Oxygen Mode of Delivery: Room air
Patient hypoxic: not evaluated
*Critical Care Note
Total Time (30-74mins, 75-104mins- exclusive of procedures): Not Applicable
ED Attending Note
-
Portions of this chart may have been created with voice recognition software.� Occasional wrong word or��sound alike� substitutions may have occurred due to the inherent limitations of voice recognition software.
Discharge Plan
Departure
Prescriptions:
No Action
lamotrigine 100 MG tablet
200 mg PO BID
aspirin 81 mg Tablet,Chewable
81 mg PO DAILY Qty: 30 2RF
levothyroxine 25 mcg Tablet
25 mcg PO DAILY @ 0600 30 Days Qty: 30 0RF
multivitamin with folic acid [Tab-A-Jay] 400 mcg Tablet
1 tab PO DAILY 30 Days Qty: 30 0RF
cyanocobalamin (vitamin B-12) 1,000 mcg Tablet
1,000 mcg PO DAILY 30 Days Qty: 30 0RF
atorvastatin 40 mg Tablet
40 mg PO QPM 30 Days Qty: 30 0RF
bumetanide 2 mg Tablet
2 mg PO DAILY 30 Days Qty: 30 0RF
clopidogrel 75 mg Tablet
75 mg PO DAILY 30 Days Qty: 30 2RF
pantoprazole 40 mg Tablet,Delayed Release (Dr/Ec)
40 mg PO DAILY 30 Days Qty: 30 0RF
lorazepam 1 MG tablet
1 mg PO TIDPRN PRN (Reason: anxiety) 3 Days Qty: 9 0RF
metoprolol tartrate 25 mg Tablet
12.5 mg PO Q12 30 Days Qty: 30 2RF
potassium chloride 20 mEq tablet extended release
20 meq PO BID 30 Days Qty: 60 0RF
Interventions
Interventions:
*Risk Screen - Suicide Last Done: 06/13/25 11:13
*General Assessment Last Done: 06/13/25 11:13
Discharge Date and Time
Print Language: PARAGUAYAN
[2025-06-13 14:50] VITALS: BP 108/76
== END 2025-06-13 14:53 | disposition home or self-care (01) ==
LOC: EMR 11:04
PROVIDERS: EMERGENCY PHYSICIAN Emergency Medicine; FAMILY PHYSICIAN Internal Medicine
DX: R20.2 Paresthesia of skin (principal); I25.2 Old myocardial infarction; I50.9 Heart failure, unspecified; F41.9 Anxiety disorder, unspecified; Z95.2 Presence of prosthetic heart valve; Z95.1 Presence of aortocoronary bypass graft
CPT/HCPCS: 99284; 73030; 73060; 93005